=== PATIENT | male | born 1930 | race Caucasian/White ===

== ENCOUNTER → 2016-09-14 | Outpatient (CLI) | payer MEDICARE, OTHER ==
[2016-09-14 09:20] LABS: CHLORIDE,CL 104 mmol/L (98-110); SODIUM,NA 143 mmol/L (136-146)
--- NOTE | 2016-09-14 09:41 | CR ---
EXAMINATION: Two-view chest (PA and Lateral views). HISTORY: Central hypertension. FINDINGS: The trachea is midline. The cardiomediastinal silhouette is within normal limits. No pulmonary infil trates, effusions or pneumothorax. There is accessory azygos fissure. Advanced osteoarthritic changes are noted within the shoulders bilaterally. Anterior cervical hardwa re noted. Median sternotomy wires are noted with evidence of valvular replacement. IMPRESSION: No acute cardiopulmonary process.
== END ==
LOC: MW.CHFP 08:30
PROVIDERS: ATTEND Emergency Medicine
DX: Z01.810 Encounter for preprocedural cardiovascular examination (principal); I10 Essential (primary) hypertension; E11.9 Type 2 diabetes mellitus without complications
CPT/HCPCS: 36415; 71020; 71020-26; 80053; 82652; 83036; 85027; 93005; 99214

== ENCOUNTER → 2016-10-20 | Outpatient (CLI) | payer MEDICARE, OTHER | LOC: MW.CHFP 08:00 | PROVIDERS: ATTEND Emergency Medicine | DX: Z48.02 Encounter for removal of sutures (principal); Z48.89 Encounter for other specified surgical aftercare | CPT/HCPCS: G0463 ==

== ENCOUNTER → 2016-12-14 | Outpatient (CLI) | payer MEDICARE, OTHER ==
[2016-12-14 08:19] LABS: CHLORIDE,CL 104 mmol/L (98-110); SODIUM,NA 140 mmol/L (136-146)
== END ==
LOC: MW.CHFP 07:24
PROVIDERS: ATTEND Emergency Medicine
DX: E11.9 Type 2 diabetes mellitus without complications (principal); I10 Essential (primary) hypertension
CPT/HCPCS: 36415; 80048; 83036; 85027; 99214

== ENCOUNTER 2018-10-11 06:22 | Day surgery (SDC) | payer MEDICARE, OTHER ==
[~2018-10-11 06:22] MED LIST: Lactated Ringers 1,000 ML IV SCH
[2018-10-11] MEDS ORDERED: Lidocaine 1% 20 ML MDV ONE (07:22)
[2018-10-11] MEDS ORDERED: Bupivacaine 0.25% 10 ML SDV ONE (07:22)
[2018-10-11] MEDS ORDERED: Lidocaine 1% 0 ML ONE (07:29)
[2018-10-11] MEDS ORDERED: Propofol 200 MG/20 ML SDV ONE (07:29)
--- NOTE | 2018-10-11 07:30 | PCM.PREANE ---
Preanesthetic Assessment - Anesthesia/Transfusion/Family Hx Anesthesia History: Prior Anesthesia Without Reaction Family History of Anesthesia Reaction: No Transfusion History: No Prior Transfusion(s) - Physical Assessment NPO Status Date: 10/10/18 NPO Status Time: 18:00 O2 Sat by Pulse Oximetry: 95 Respiratory Rate: 15 Vital Signs: Last Vital Signs Temp 96.8 F 10/11/18 06:55 Pulse 66 10/11/18 06:55 Resp 15 10/11/18 06:55 BP 139/63 10/11/18 06:55 Pulse Ox 95 10/11/18 06:55 Height: 5 ft 8 in Weight: 85.729 kg ASA Class: 3 Mental Status: Alert & Oriented x3 Dentition: Reports: Dentures ROM/Head Extension: Full Lungs: Clear to Auscultation, Normal Respiratory Effort Cardiovascular: Regular Rate, Regular Rhythm - Allergies Allergies/Adverse Reactions: Allergies Allergy/AdvReac Type Severity Reaction Status Date / Time No Known Allergies Allergy Verified 10/09/18 11:00 - Blood Blood Available: No - Anesthesia Plan Pre-Op Medication Ordered: None - Acknowledgements Anesthesia Type Planned: MAC Pt an Appropriate Candidate for the Planned Anesthesia: Yes Alternatives and Risks of Anesthesia Discussed w Pt/Guardian: Yes Pt/Guardian Understands and Agrees with Anesthesia Plan: Yes Additional Comments: PMH: COMANCHE-wears hearing aids, poor vision-macular degeneration, glaucoma, 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), NPH-with hx or retention, 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, HTN, HLD, s/p multilevel cervical instrumentation for cervical spondylosis, has untreated lumbar spinal stenosis PLAN: MAC PreAnesthesia Questionnaire HEENT History: Reports: Cataract, Impaired Vision, Macular Degeneration, Other ( See Below) Other HEENT History: wears glasses, top and bottom dentures, darci hearing aids Cardiovascular History: Reports: Heart Valve Replacement, High Cholesterol, Hypertension Respiratory History: Reports: None Gastrointestinal History: Reports: GERD Genitourinary History: Reports: BPH Other Genitourinary History: CKD, bladder cancer Musculoskeletal History: Reports: Neck Pain, Chronic, Osteoarthritis Other Musculoskeletal History: DDD Neurological History: Reports: None Psychiatric History: Reports: None Endocrine/Metabolic History: Reports: Diabetes, Type II Hematologic History: Reports: None Immunologic History: Reports: None Oncologic (Cancer) History: Reports: Bladder, Other (See Below) Other Oncologic History: hx skin cancer Dermatologic History: Reports: None - Past Surgical History Head Surgeries/Procedures: Reports: None HEENT Surgical History: Reports: Cataract Surgery, Tonsillectomy Cardiovascular Surgical History: Reports: Valve Replacement Respiratory Surgical History: Reports: None Male Surgical History: Reports: TURBT-Transurethral Resection of Bladder Tumor Neurological Surgical History: Reports: C-Spine Other Neurological Surgeries/Procedures: hx neck surgery Musculoskeletal Surgical History: Reports: Knee Replacement, Other (See Below) Other Musculoskeletal Surgeries/Procedures:: elbow surgery,, darci knee replacements Dermatological Surgical History: Reports: Skin Biopsy - SUBSTANCE USE Smoking Status *Q: Former Smoker Tobacco Use Within Last Twelve Months: Snuff/Dip, Other (See Below) Recreational Drug Use History: No - HOME MEDS Home Medications: Home Meds Aspirin [Adult Aspirin] 81 mg PO DAILY 10/09/18 [History] Cholecalciferol (Vitamin D3) [Vitamin D3] 2,000 units PO DAILY 10/09/18 [History ] Cyanocobalamin (Vitamin B12) [Vitamin B12] 1,000 mcg PO DAILY 10/09/18 [History] Docusate Sodium [Dulcolax Stool Softener] 1 tab PO ASDIRECTED PRN 10/09/18 [ History] Finasteride [Proscar] 5 mg PO BID 10/09/18 [History] Fish Oil/DHA/EPA [Fish Oil 1,200 MG] 3 tab PO TID 10/09/18 [History] Glimepiride 4 mg PO BID 10/09/18 [History] Ibuprofen [Advil] 2 tab PO ASDIRECTED PRN 10/09/18 [History] Latanoprost/Pf [Latanoprost 0.005% Eye Drop] 1 drop EYEBOTH ASDIRECTED 10/09/18 [History] Losartan Potassium 50 mg PO BEDTIME 10/09/18 [History] Losartan Potassium 100 mg PO ACBREAKFAST 10/09/18 [History] Calros Red 500 mg PO DAILY 10/09/18 [History] Metoprolol Tartrate 50 mg PO BID 10/09/18 [History] Omeprazole Magnesium [Prilosec Otc] 20 mg PO DAILY 10/09/18 [History] Pioglitazone HCl 30 mg PO DAILY 10/09/18 [History] Polyvinyl Alcohol [Liquitears] 1 drop EYEBOTH ASDIRECTED PRN 10/09/18 [History] Rosuvastatin Calcium 20 mg PO BEDTIME 10/09/18 [History] Tamsulosin [Flomax] 0.4 mg PO DAILY 10/09/18 [History] Vit C/Jaun J Ac/Lut/Copper/ZnOx [Preservision Lutein Softgel] 20 tab PO DAILY 06/19 [History] Vitamin B Complex [Super B-50 Complex] 1 tab PO DAILY 10/09/18 [History] amLODIPine Besylate [Amlodipine Besylate] 5 mg PO DAILY 10/09/18 [History] metFORMIN HCl [Fortamet] 500 mg PO BEDTIME 10/09/18 [History] metFORMIN HCl [Metformin ER Osmotic] 1,000 mg PO ACBREAKFAST 10/09/18 [History] - CURRENT (IN HOUSE) MEDS Current Meds: Current Medications Cefazolin Sodium/Dextrose 2 gm (/ Premix) 50 mls @ 100 mls/hr IV ONCALL JADEN Lactated Ringer's (Ringers, Lactated) 1,000 mls @ 100 mls/hr IV ASDIRECTED [facility] Last Admin: 10/11/18 07:13 Dose: 100 mls/hr
[2018-10-11] MEDS ORDERED: Midazolam 1 MG/ML 2 ML SDV ONE (07:45)
[2018-10-11] MEDS ORDERED: fentaNYL 100 MCG/2 ML SDV ONE (07:45)
[2018-10-11] MEDS ORDERED: Ondansetron 4 MG/2 ML SDV ONE (07:45)
[2018-10-11] MEDS ORDERED: ceFAZolin 1 GM Vial ONE (07:53)
[2018-10-11] MEDS ORDERED: ceFAZolin 2 GM in Premix Bag 1 BAG IV SCH (08:00)
[2018-10-11] MEDS ORDERED: Acetaminophen/Codeine 300-30 MG Tab PO PRN (08:24)
--- NOTE | 2018-10-11 08:35 | PCM.OPNOTE ---
- General Post-Op/Procedure Note Date of Surgery/Procedure: 10/11/18 Operative Procedure(s): L CTR Post-Op Diagnosis: L CTS Anesthesia Technique: Local, Moderate Sedation Primary Surgeon: Ginger Noriega EBL in mLs: 5 Condition: Good Free Text/Narrative:: tt=3 min #[id number]
--- NOTE | 2018-10-11 10:10 | OR ---
SURGEON: Ginger Noriega MD DATE OF PROCEDURE: 10/11/2018 PREOPERATIVE DIAGNOSIS: Left carpal tunnel syndrome. POSTOPERATIVE DIAGNOSIS: Left carpal tunnel syndrome. PROCEDURE: Left carpal tunnel release, open. RADIOLOGY SERVICES MANAGER: Jo Ann Gold RN. ANESTHESIA: Local with sedation. ESTIMATED BLOOD LOSS: 5 mL. TOURNIQUET TIME: 3 minutes. COMPLICATIONS: None. DEEP VENOUS THROMBOSIS PROPHYLAXIS: Not indicated. IMPLANTS USED: None. BRIEF HISTORY: Dio is an 88-year-old male who has had complaint of progressive left carpal tunnel syndrome. He has previously undergone a right carpal tunnel release and has done well. He did have EMG/nerve conduction studies, which did confirm the diagnosis. Due to his lack of response to conservative treatment, I did recommend surgical intervention. Risks and goals of procedure were discussed with the patient and were documented preoperatively. He agreed to proceed. DESCRIPTION OF PROCEDURE: The patient was properly identified and brought to the operating room. The patient was transferred from the operating room cart and placed on the operating room table in the supine position. Sedation was administered. After adequate sedation was achieved, a well-padded tourniquet was applied to the left forearm. The upper extremity was then prepped in standard fashion using ChloraPrep solution. It was then sterilely draped. A time-out was performed to ensure correct site and procedure. Preoperative antibiotics were given. The surgical site had been marked preoperatively. A mixture of 1% Lidocaine and 0.25% Marcaine were injected along the area of anticipated incision. An Esmarch was used to exsanguinate the left upper extremity and the tourniquet was inflated to 200 millimeters of mercury. A fifteen blade scalpel used to make an incision over the volar aspect of the hand. The subcutaneous tissues and palmar fascia were incised down to the level of the transverse carpal ligament. Transverse carpal ligament was then incised. Care was taken to release the ligament distally to the level of fat and proximally into the forearm. At the completion, we had good decompression of the median nerve. No other abnormalities were identified. The wound was then copiously irrigated with saline solution. The tourniquet was deflated. Electrocautery was used to maintain hemostasis. The incision site was closed with 4-0 nylon. Xeroform gauze was placed over the wound and a bulky dressing was applied. The patient was awakened from the sedation and transferred back to the operating room cart. The patient was brought to the recovery room in stable condition. All needle and sponge counts were correct. KARIN / TANNER /[id number]
--- NOTE | 2018-10-11 10:12 | PCM48HPAN ---
Post Anesthesia Note - EVALUATION WITHIN 48HRS OF ANESTHETIC Vital Signs in Normal Range: Yes Patient Participated in Evaluation: Yes Respiratory Function Stable: Yes Airway Patent: Yes Cardiovascular Function Stable: Yes Hydration Status Stable: Yes Pain Control Satisfactory: Yes Nausea and Vomiting Control Satisfactory: Yes Mental Status Recovered: Yes Resp Rate: 15
== END 2018-10-11 09:55 | disposition home or self-care (01) ==
LOC: MW.SDS 06:22
PROVIDERS: ATTEND Orthopaedic Surgery
DX: G56.02 Carpal tunnel syndrome, left upper limb (principal); I65.21 Occlusion and stenosis of right carotid artery; I12.9 Hypertensive chronic kidney disease with stage 1 through stage 4 chronic kidney disease, or unspecified chronic kidney disease; E11.22 Type 2 diabetes mellitus with diabetic chronic kidney disease; N18.9 Chronic kidney disease, unspecified; E78.00 Pure hypercholesterolemia, unspecified; G56.20 Lesion of ulnar nerve, unspecified upper limb; M48.061 Spinal stenosis, lumbar region without neurogenic claudication; M47.812 Spondylosis without myelopathy or radiculopathy, cervical region; N40.0 Benign prostatic hyperplasia without lower urinary tract symptoms; Z79.1 Long term (current) use of non-steroidal anti-inflammatories (NSAID); Z79.82 Long term (current) use of aspirin; Z79.84 Long term (current) use of oral hypoglycemic drugs; Z79.899 Other long term (current) drug therapy; Z98.890 Other specified postprocedural states
CPT/HCPCS: 64721; 82962; J0131; J0690; J2001; J2250; J3010; J3490; J7120; 01810; J2405; J2704

== ENCOUNTER 2018-10-15 20:40 | Observation (INO) | payer MEDICARE, OTHER ==
[2018-10-15] MEDS ORDERED: ceFAZolin 1 GM in Premix Bag 1 BAG IV ONE (20:59)
--- NOTE | 2018-10-15 21:14 | EDM.PDOC ---
ED HPI GENERAL MEDICAL PROBLEM - General Chief Complaint: Diabetic Complaint Stated Complaint: AMBULANCE Time Seen by Provider: 10/15/18 20:57 - History of Present Illness INITIAL COMMENTS - FREE TEXT/NARRATIVE: HISTORY AND PHYSICAL: History of present illness: Patient is an 88-year-old white male who presents after hypoglycemic episode in which there was a fall with associated laceration in his left upper extremity. He is had reported blood sugar of 30 per paramedics and was combative he rushed paramedics and was secured after the fall his wound was wrapped c-collar was applied. IV was ultimately established patient was given D50 on arrival he was a blood sugar approximately 1:30 he is awake cooperative has no other complaints at this time. Review of systems: As per history of present illness and below otherwise all systems reviewed and negative. Past medical history: As per history of present illness and as reviewed below otherwise noncontributory. Surgical history: As per history of present illness and as reviewed below otherwise noncontributory. Social history: No reported history of drug or alcohol abuse. Family history: As per history of present illness and as reviewed below otherwise noncontributory. Physical exam: HEENT: Atraumatic, normocephalic, pupils reactive, negative for conjunctival pallor or scleral icterus, mucous membranes moist, throat clear, c-collar in place, nontender, trachea midline. Lungs: Clear to auscultation, breath sounds equal bilaterally, chest nontender. Heart: S1S2, regular, negative for clicks, rubs, or JVD. Abdomen: Soft, nondistended, nontender. Negative for masses or hepatosplenomegaly. Negative for costovertebral tenderness. Pelvis: Stable nontender. Genitourinary: Deferred. Rectal: Deferred. Extremities: Left upper extremity has a gaping large laceration approximately 15 cm good hemostasis . Neuro: Awake, alert, oriented. Follows commands moves all extremities limited grossly nonfocal exam Diagnostics: CBC CMP troponin PT/INR chest x-ray EKG CT brain CT C-spine Therapeutics: IV O2 monitor Impression: #1 hypoglycemic episode with associated fall #2 left upper extremity injury with laceration #3 history of non-insulin dependent diabetes Definitive disposition and diagnosis as appropriate pending reevaluation and review of above. - Related Data Allergies Allergy/AdvReac Type Severity Reaction Status Date / Time No Known Allergies Allergy Verified 10/09/18 11:00 Home Meds: Home Meds Aspirin [Adult Aspirin] 81 mg PO DAILY 10/09/18 [History] Cholecalciferol (Vitamin D3) [Vitamin D3] 2,000 units PO DAILY 10/09/18 [History ] Cyanocobalamin (Vitamin B12) [Vitamin B12] 1,000 mcg PO DAILY 10/09/18 [History] Docusate Sodium [Dulcolax Stool Softener] 1 tab PO ASDIRECTED PRN 10/09/18 [ History] Finasteride [Proscar] 5 mg PO BID 10/09/18 [History] Fish Oil/DHA/EPA [Fish Oil 1,200 MG] 3 tab PO TID 10/09/18 [History] Glimepiride 4 mg PO BID 10/09/18 [History] Ibuprofen [Advil] 2 tab PO ASDIRECTED PRN 10/09/18 [History] Latanoprost/Pf [Latanoprost 0.005% Eye Drop] 1 drop EYEBOTH ASDIRECTED 10/09/18 [History] Losartan Potassium 50 mg PO BEDTIME 10/09/18 [History] Losartan Potassium 100 mg PO ACBREAKFAST 10/09/18 [History] Carlos Red 500 mg PO DAILY 10/09/18 [History] Metoprolol Tartrate 50 mg PO BID 10/09/18 [History] Omeprazole Magnesium [Prilosec Otc] 20 mg PO DAILY 10/09/18 [History] Pioglitazone HCl 30 mg PO DAILY 10/09/18 [History] Polyvinyl Alcohol [Liquitears] 1 drop EYEBOTH ASDIRECTED PRN 10/09/18 [History] Rosuvastatin Calcium 20 mg PO BEDTIME 10/09/18 [History] Tamsulosin [Flomax] 0.4 mg PO DAILY 10/09/18 [History] Vit C/Juan J Ac/Lut/Copper/ZnOx [Preservision Lutein Softgel] 20 tab PO DAILY 06/19 [History] Vitamin B Complex [Super B-50 Complex] 1 tab PO DAILY 10/09/18 [History] amLODIPine Besylate [Amlodipine Besylate] 5 mg PO DAILY 10/09/18 [History] metFORMIN HCl [Fortamet] 500 mg PO BEDTIME 10/09/18 [History] metFORMIN HCl [Metformin ER Osmotic] 1,000 mg PO ACBREAKFAST 10/09/18 [History] Acetaminophen/Codeine [Tylenol with Codeine No.3 300MG/30MG] 1 - 2 tab PO Q6H PRN #20 tablet 10/11/18 [Rx] Past Medical History HEENT History: Reports: Cataract, Impaired Vision, Macular Degeneration, Other ( See Below) Other HEENT History: wears glasses, top and bottom dentures, darci hearing aids Cardiovascular History: Reports: Heart Valve Replacement, High Cholesterol, Hypertension Respiratory History: Reports: None Gastrointestinal History: Reports: GERD Genitourinary History: Reports: BPH Other Genitourinary History: CKD, bladder cancer Musculoskeletal History: Reports: Neck Pain, Chronic, Osteoarthritis Other Musculoskeletal History: DDD Neurological History: Reports: None Psychiatric History: Reports: None Endocrine/Metabolic History: Reports: Diabetes, Type II Hematologic History: Reports: None Immunologic History: Reports: None Oncologic (Cancer) History: Reports: Bladder, Other (See Below) Other Oncologic History: hx skin cancer Dermatologic History: Reports: None - Past Surgical History Head Surgeries/Procedures: Reports: None HEENT Surgical History: Reports: Cataract Surgery, Tonsillectomy Cardiovascular Surgical History: Reports: Valve Replacement Respiratory Surgical History: Reports: None Male Surgical History: Reports: TURBT-Transurethral Resection of Bladder Tumor Neurological Surgical History: Reports: C-Spine Other Neurological Surgeries/Procedures: hx neck surgery Musculoskeletal Surgical History: Reports: Knee Replacement, Other (See Below) Other Musculoskeletal Surgeries/Procedures:: elbow surgery,, darci knee replacements Dermatological Surgical History: Reports: Skin Biopsy ED ROS GENERAL - Review of Systems Review Of Systems: ROS reveals no pertinent complaints other than HPI. ED EXAM GENERAL NO PERIP PULSE - Physical Exam Exam: See Below (see dictation) Course - Orders/Labs/Meds Orders: Active Orders 24 hr Category Date Time Status EKG Documentation Completion [RC] STAT Care 10/15/18 20:57 Active Cervical Spine wo Cont [CT] Stat Exams 10/15/18 21:00 Ordered Chest 1V Frontal [CR] Stat Exams 10/15/18 20:58 Ordered Elbow 2V Lt [CR] Stat Exams 10/15/18 20:58 Ordered Head wo Cont [CT] Stat Exams 10/15/18 20:59 Ordered CBC WITH AUTO DIFF [HEME] Stat Lab 10/15/18 20:57 Ordered COMPREHENSIVE METABOLIC PN,CMP [CHEM] Stat Lab 10/15/18 20:57 Ordered INR,PT,PROTHROMBIN TIME [COAG] Stat Lab 10/15/18 20:57 Ordered TROPONIN I [CHEM] Stat Lab 10/15/18 20:57 Ordered UA RFX EMILIANA AND CULT IF INDIC [URIN] Stat Lab 10/15/18 20:58 Ordered ceFAZolin [Ancef] 1 gm Med 10/15/18 20:59 Active Premix Bag 1 bag IV ONETIME Medication Orders Cefazolin Sodium/Dextrose 1 gm (/ Premix) 50 mls @ 100 mls/hr IV ONETIME ONE Stop: 10/15/18 21:28 Labs: Laboratory Tests 10/15/18 Range/Units 20:53 POC Glucose 149 H (60-110) mg/dL Meds: Medications Generic Name Dose Route Start Last Admin Trade Name Freq PRN Reason Stop Dose Admin Cefazolin Sodium/Dextrose 1 gm 50 mls @ 100 mls/hr 10/15/18 20:59 / Premix IV 10/15/18 21:28 ONETIME ONE Departure - Departure Time of Disposition: 21:13 Disposition: Refer to Observation Condition: Good Clinical Impression: Hypoglycemia, Fall, Upper extremity injury, History of diabetes mellitus, type II - Discharge Information Referrals: PCP,None [Primary Care Provider] - - My Orders Last 24 Hours: My Active Orders 10/15/18 20:57 EKG Documentation Completion [RC] STAT CBC WITH AUTO DIFF [HEME] Stat COMPREHENSIVE METABOLIC PN,CMP [CHEM] Stat INR,PT,PROTHROMBIN TIME [COAG] Stat TROPONIN I [CHEM] Stat 10/15/18 20:58 Chest 1V Frontal [CR] Stat Elbow 2V Lt [CR] Stat UA RFX EMILIANA AND CULT IF INDIC [URIN] Stat 10/15/18 20:59 Head wo Cont [CT] Stat ceFAZolin [Ancef] 1 gm Premix Bag 1 bag IV ONETIME 10/15/18 21:00 Cervical Spine wo Cont [CT] Stat - Assessment/Plan Last 24 Hours: My Active Orders 10/15/18 20:57 EKG Documentation Completion [RC] STAT CBC WITH AUTO DIFF [HEME] Stat COMPREHENSIVE METABOLIC PN,CMP [CHEM] Stat INR,PT,PROTHROMBIN TIME [COAG] Stat TROPONIN I [CHEM] Stat 10/15/18 20:58 Chest 1V Frontal [CR] Stat Elbow 2V Lt [CR] Stat UA RFX EMILIANA AND CULT IF INDIC [URIN] Stat 10/15/18 20:59 Head wo Cont [CT] Stat ceFAZolin [Ancef] 1 gm Premix Bag 1 bag IV ONETIME 10/15/18 21:00 Cervical Spine wo Cont [CT] Stat
[2018-10-15] MEDS ORDERED: Lidocaine 1% with EPINEPHrine 1:100,000 20 ML MDV ONE (21:31)
[2018-10-15] MEDS ORDERED: Lidocaine 1% with EPINEPHrine 1:100,000 20 ML MDV INJECT ONE (21:33)
--- NOTE | 2018-10-15 21:38 | PCM.HP ---
H&P History of Present Illness - General Date of Service: 10/15/18 - History of Present Illness Initial Comments - Free Text/Narative: 88 yo male with pmh of HTN, DM and valvular heat disease who presents to the ED following a fall with laceration to left arm. Patient was noted to be confused at home EMS was called. Patient was noted to have a blood glucose of 30. He was given and amp of D50. Patient reports that he only takes oral hypoglycemics. He believes he did not eat enough today. Dr. Figueredo was consulted regarding the laceration. Left Middle Frontal Elbow Pain Score (Numeric/FACES): 0 - Related Data Allergies/Adverse Reactions: Allergies Allergy/AdvReac Type Severity Reaction Status Date / Time No Known Allergies Allergy Verified 10/15/18 22:08 Home Medications: Home Meds Aspirin [Adult Aspirin] 81 mg PO DAILY 10/09/18 [History] Cholecalciferol (Vitamin D3) [Vitamin D3] 2,000 units PO DAILY 10/09/18 [History ] Cyanocobalamin (Vitamin B12) [Vitamin B12] 1,000 mcg PO DAILY 10/09/18 [History] Docusate Sodium [Dulcolax Stool Softener] 1 tab PO ASDIRECTED PRN 10/09/18 [ History] Finasteride [Proscar] 5 mg PO DAILY 10/09/18 [History] Fish Oil/DHA/EPA [Fish Oil 1,200 MG] 0 tab PO BID 10/09/18 [History] Ibuprofen [Advil] 2 tab PO ASDIRECTED PRN 10/09/18 [History] Latanoprost/Pf [Latanoprost 0.005% Eye Drop] 1 drop EYEBOTH QPM 10/09/18 [ History] Losartan Potassium 50 mg PO BEDTIME 10/09/18 [History] Losartan Potassium 100 mg PO ACBREAKFAST 10/09/18 [History] Metoprolol Tartrate 50 mg PO BID 10/09/18 [History] Omeprazole Magnesium [Prilosec Otc] 20 mg PO ASDIRECTED PRN 10/09/18 [History] Pioglitazone HCl 30 mg PO DAILY 10/09/18 [History] Rosuvastatin Calcium 20 mg PO BEDTIME 10/09/18 [History] Tamsulosin [Flomax] 0.4 mg PO DAILY 10/09/18 [History] Vit C/Juan J Ac/Lut/Copper/ZnOx [Preservision Lutein Softgel] 1 cap PO BID [History] Vitamin B Complex [Super B-50 Complex] 1 tab PO DAILY 10/09/18 [History] amLODIPine Besylate [Amlodipine Besylate] 5 mg PO DAILY 10/09/18 [History] metFORMIN HCl [Fortamet] 500 mg PO BEDTIME 10/09/18 [History] metFORMIN HCl [Metformin ER Osmotic] 1,000 mg PO ACBREAKFAST 10/09/18 [History] Acetaminophen/Codeine [Tylenol with Codeine No.3 300MG/30MG] 1 - 2 tab PO Q6H PRN #20 tablet 10/11/18 [Rx] Glimepiride 2 mg PO BID #0 10/16/18 [Rx] Past Medical History HEENT History: Reports: Cataract, Impaired Vision, Macular Degeneration, Other ( See Below) Other HEENT History: wears glasses, top and bottom dentures, darci hearing aids Cardiovascular History: Reports: Heart Valve Replacement, High Cholesterol, Hypertension Respiratory History: Reports: None Gastrointestinal History: Reports: GERD Genitourinary History: Reports: BPH Other Genitourinary History: CKD, bladder cancer Musculoskeletal History: Reports: Neck Pain, Chronic, Osteoarthritis Other Musculoskeletal History: DDD Neurological History: Reports: None Psychiatric History: Reports: None Endocrine/Metabolic History: Reports: Diabetes, Type II Hematologic History: Reports: None Immunologic History: Reports: None Oncologic (Cancer) History: Reports: Bladder, Other (See Below) Other Oncologic History: hx skin cancer Dermatologic History: Reports: None - Past Surgical History Head Surgeries/Procedures: Reports: None HEENT Surgical History: Reports: Cataract Surgery, Tonsillectomy Cardiovascular Surgical History: Reports: Valve Replacement Respiratory Surgical History: Reports: None Male Surgical History: Reports: TURBT-Transurethral Resection of Bladder Tumor Neurological Surgical History: Reports: C-Spine Other Neurological Surgeries/Procedures: hx neck surgery Musculoskeletal Surgical History: Reports: Knee Replacement, Other (See Below) Other Musculoskeletal Surgeries/Procedures:: elbow surgery,, darci knee replacements Dermatological Surgical History: Reports: Skin Biopsy H&P Review of Systems - Review of Systems: Review Of Systems: ROS reveals no pertinent complaints other than HPI. Exam - Exam Exam: See Below - Vital Signs Vital Signs: Last Vital Signs Temp 36.1 C 10/15/18 20:40 Pulse 79 10/15/18 20:40 Resp 18 10/15/18 20:40 BP 142/89 H 10/15/18 20:40 Pulse Ox 95 10/15/18 20:40 Weight: 85 kg - Exam General: Alert, Oriented HEENT: Mucosa Moist & Athalia Neck: Supple Lungs: Clear to Auscultation, Normal Respiratory Effort Cardiovascular: Regular Rate, Regular Rhythm GI/Abdominal Exam: Normal Bowel Sounds, Soft, Non-Tender Extremities: No Pedal Edema Skin: Other (large laceration of left forarm) - Patient Data Lab Results Last 24 hrs: Laboratory Results - last 24 hr 10/15/18 10/15/18 Range/Units 20:53 21:18 WBC 11.61 H (4.0-11.0) K/uL RBC 3.70 L (4.50-5.90) M/uL Hgb 11.4 L (13.0-17.0) g/dL Hct 35.1 L (38.0-50.0) % MCV 94.9 (80.0-98.0) fL MCH 30.8 (27.0-32.0) pg MCHC 32.5 (31.0-37.0) g/dL RDW Std Deviation 50.0 (28.0-62.0) fl RDW Coeff of Marshall 15 (11.0-15.0) % Plt Count 205 (150-400) K/uL MPV 9.60 (7.40-12.00) fL Neut % (Auto) 84.4 H (48.0-80.0) % Lymph % (Auto) 5.2 L (16.0-40.0) % [place] % (Auto) 9.0 (0.0-15.0) % Eos % (Auto) 1.3 (0.0-7.0) % Baso % (Auto) 0.1 (0.0-1.5) % Neut # (Auto) 9.8 H (1.4-5.7) K/uL Lymph # (Auto) 0.6 (0.6-2.4) K/uL [place] # (Auto) 1.0 H (0.0-0.8) K/uL Eos # (Auto) 0.2 (0.0-0.7) K/uL Baso # (Auto) 0.0 (0.0-0.1) K/uL Nucleated RBC % 0.0 /100WBC Nucleated RBCs # 0 K/uL POC Glucose 149 H (60-110) mg/dL Result Diagrams: 10/16/18 06:04 10/16/18 06:04 Problem List Initiated/Reviewed/Updated: Yes Orders Last 24hrs: Active Orders 24 hr Category Date Time Status Antiembolic Devices [RC] PER UNIT ROUTINE Care 10/15/18 21:31 Ordered Blood Glucose Check, Bedside [RC] Q3HR Care 10/15/18 21:29 Ordered EKG Documentation Completion [RC] STAT Care 10/15/18 20:57 Active Oxygen Therapy [RC] PRN Care 10/15/18 21:29 Ordered Up ad Rosemary [RC] ASDIRECTED Care 10/15/18 21:29 Ordered VTE/DVT Education [RC] PER UNIT ROUTINE Care 10/15/18 21:29 Ordered Vital Signs [RC] Q4H Care 10/15/18 21:29 Ordered Consult to Diabetic Nurse Specialist [CONS] Routine Cons 10/15/18 21:29 Ordered [employer] Diet [DIET] Diet 10/15/18 Breakfast Ordered Cervical Spine wo Cont [CT] Stat Exams 10/15/18 21:00 Ordered Chest 1V Frontal [CR] Stat Exams 10/15/18 20:58 Ordered Elbow 2V Lt [CR] Stat Exams 10/15/18 20:58 Ordered Head wo Cont [CT] Stat Exams 10/15/18 20:59 Ordered BASIC METABOLIC PANEL,BMP [CHEM] AM Lab 10/16/18 05:11 Ordered CBC W/O DIFF,HEMOGRAM [HEME] AM Lab 10/16/18 05:11 Ordered COMPREHENSIVE METABOLIC PN,CMP [CHEM] Stat Lab 10/15/18 21:18 Received INR,PT,PROTHROMBIN TIME [COAG] Stat Lab 10/15/18 21:18 Received TROPONIN I [CHEM] Stat Lab 10/15/18 21:18 Received UA RFX EMILIANA AND CULT IF INDIC [URIN] Stat Lab 10/15/18 20:58 Ordered Metoprolol Tartrate [Lopressor] Med 10/16/18 09:00 Ordered 50 mg PO BID Rosuvastatin Calcium [Rosuvastatin Calcium] Med 10/16/18 21:00 Ordered 20 mg PO BEDTIME amLODIPine [Norvasc] Med 10/16/18 09:00 Ordered 5 mg PO DAILY Sequential Compression Device [OM.PC] Per Unit Routine Oth 10/15/18 21:30 Ordered Resuscitation Status Routine Resus Stat 10/15/18 21:29 Ordered Assessment/Plan Comment:: 88 yo male admitted following a fall with arm laceration due to hypoglycemia. Laceration: Dr. Figueredo has been consulted and is tending to wound in the ED Hypoglycemia: last glucose was 149, will monitor with frequent accuchecks and hold hypoglycemics
[2018-10-15 21:42] LABS: CHLORIDE,CL 106 mmol/L (98-107); SODIUM,NA 144 mmol/L (136-148)
[2018-10-15] MEDS ORDERED: Bacitracin Oint 1 GM U/D Packet TOP ONE (21:47)
--- NOTE | 2018-10-15 22:14 | CR ---
Pain shortness of breath. Portable chest. COMPARISON: Chest x-ray 09/14/2016. Findings: Stable cardiac mediastinal silhouette. Median sternotomy. Cervical fusion change. Low lung volumes. Lungs are clear of an acute airspace or interstitial process. No pneumothorax. No effusion. IMPRESSION: 1. No acute pulmonary process. Dictated by Sana Valencia MD @ Oct 15 2018 10:10PM Signed by Dr. Sana Valencia @ Oct 15 2018 10:11PM
--- NOTE | 2018-10-15 22:20 | CR ---
INDICATION: Status post trauma with pain. COMPARISON: None available. FINDINGS: The left elbow is examined with AP and lateral views. There is gas in the soft tissues of the posterior distal arm consistent with a laceration. There is no sign of any radiopaque foreign body. There is a mild cortical step-off of the radial aspect of the radial head consistent with an acute, nondisplaced radial head fracture. No definite joint effusion is evident. There is no sign of additional fracture or dislocation. There is mild primary osteoarthritis of the articulation of the trochlea and olecranon, with mild narrowing of the joint space and mild sclerosis of the articular surface. There is a mild posterior olecranon spur. IMPRESSION: Acute, nondisplaced fracture of the radial aspect of the radial head. No definite joint effusion seen. Laceration of the soft tissues of the posterior distal arm with no sign of radiopaque foreign body. 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 Dictated by Thomas Gage MD @ Oct 15 2018 10:14PM Signed by Dr. Thomas Gage @ Oct 15 2018 10:18PM
--- NOTE | 2018-10-15 22:26 | CT ---
INDICATION: Pain following a fall. COMPARISON: None available. TECHNIQUE: CT examination of the head was performed with 3 millimeter thick axial sections without intravenous contrast. Images were obtained from the vertex of the skull through the skull base, and I examined the images with the brain and bone windows. Please note that all CT scans at this facility use dose modulation, iterative reconstruction, and/or weight-based dosing when appropriate to reduce radiation dose to as low as reasonably achievable. FINDINGS: : The brain is normal in appearance for the patient`s age on today`s study, with no sign of mass lesion, mass effect, hemorrhage, or edema. There is mild dilatation of the ventricles and sulci representing mild, age-appropriate atrophy. 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 A punctate dystrophic calcification is seen in a sulci overlying this region. The visualized portions of the orbits are normal in appearance. The visualized portions of the paranasal sinuses and mastoids are clear. The right mastoid is hypoplastic. The osseous structures are normal in their appearance with no sign of abnormality in the skull base or calvarium. IMPRESSION: No sign of acute injury to the brain. No sign of closed head injury. Mild, age-appropriate atrophy and small-vessel ischemic change. Please note that all CT scans at this facility use dose modulation, iterative reconstruction, and/or weight-based dosing when appropriate to reduce radiation dose to as low as reasonably achievable. Dictated by Thomas Gage MD @ Oct 15 2018 10:18PM Signed by Dr. Thomas Gage @ Oct 15 2018 10:25PM
--- NOTE | 2018-10-15 22:35 | CT ---
INDICATION: Pain after fall COMPARISON: COMPARISON DATE TECHNIQUE: CT examination of the cervical spine is performed without contrast using spiral technique. 2 mm thick axial, sagittal and coronal reconstructions were made. Please note that all CT scans at this facility use dose modulation, iterative reconstruction, and/or weight-based dosing when appropriate to reduce radiation dose to as low as reasonably achievable. FINDINGS: : There are changes of anterior cervical fusion from C3 through C5. The anterior metallic plate and anchoring screws are intact and in good apposition with the vertebral bodies. The interbody grafts are in anatomic alignment. The C3 through C5 vertebral bodies are in anatomic alignment. There is grade 1 anterior subluxation of C5 on C6. The disc spaces are absent, indicating solid osseous fusion. There is mild posterior osteophytic ridging at C4-5. There is no sign of prevertebral soft tissue swelling. There is grade 1 anterior subluxation of C6 on C7. There is associated with mild diffuse disc bulging and posterior osteophytic ridging as well as moderate right and mild left facet arthropathy. The subluxation is the almost certainly degenerative. Moderate anterior osteophytes are also present at this level. Moderate bilateral foraminal stenosis from uncovertebral joint hypertrophy. Moderate left C1-2 arthropathy with prominent lateral osteophytic ridging. The C2-3 disc space is normal in height. There is minimal diffuse disc bulging. There is moderate bilateral facet arthropathy. There is heavy anterior ligamentous ossification at C7-T1 with anatomic alignment of the vertebral bodies. The airway structures are normal in appearance. The visualized skull base is normal in appearance. Brain detail is extremely limited by the use of bone technique, but no gross abnormality is seen. The apices of the lungs are clear. IMPRESSION: No sign of acute osseous injury to the cervical spine. Satisfactory appearance status post anterior cervical fusion from C3 through C6. Grade 1 anterior subluxation of C6 on C7, probably degenerative. Degenerative changes throughout the cervical spine as described above. Please note that all CT scans at this facility use dose modulation, iterative reconstruction, and/or weight-based dosing when appropriate to reduce radiation dose to as low as reasonably achievable. Dictated by Thomas Gage MD @ Oct 15 2018 10:25PM Signed by Dr. Thomas Gage @ Oct 15 2018 10:32PM
--- NOTE | 2018-10-15 23:17 | PCM.CONS ---
H&P History of Present Illness - General Date of Service: 10/15/18 Source of Information: Patient History Limitations: Reports: No Limitations - History of Present Illness Initial Comments - Free Text/Narative: Patient is an 88 year old male who presents after a fall secondary to hypoglycemia and associated altered mental status. He fell and hit his left elbow sustaining a large complex skin laceration and skin tear over the dorsal aspect of his left elbow extending onto the dorsal forearm. He is being admitted to the medicine service for monitoring overnight. I was asked to come repair his laceration and evaluate the extremity. He denies any paresthesias or loss of motor sensation to the left arm or hand. - Related Data Allergies/Adverse Reactions: Allergies Allergy/AdvReac Type Severity Reaction Status Date / Time No Known Allergies Allergy Verified 10/15/18 22:08 Home Medications: Home Meds Aspirin [Adult Aspirin] 81 mg PO DAILY 10/09/18 [History] Cholecalciferol (Vitamin D3) [Vitamin D3] 2,000 units PO DAILY 10/09/18 [History ] Cyanocobalamin (Vitamin B12) [Vitamin B12] 1,000 mcg PO DAILY 10/09/18 [History] Docusate Sodium [Dulcolax Stool Softener] 1 tab PO ASDIRECTED PRN 10/09/18 [ History] Finasteride [Proscar] 5 mg PO BID 10/09/18 [History] Fish Oil/DHA/EPA [Fish Oil 1,200 MG] 3 tab PO TID 10/09/18 [History] Glimepiride 4 mg PO BID 10/09/18 [History] Ibuprofen [Advil] 2 tab PO ASDIRECTED PRN 10/09/18 [History] Latanoprost/Pf [Latanoprost 0.005% Eye Drop] 1 drop EYEBOTH ASDIRECTED 10/09/18 [History] Losartan Potassium 50 mg PO BEDTIME 10/09/18 [History] Losartan Potassium 100 mg PO ACBREAKFAST 10/09/18 [History] Carlos Red 500 mg PO DAILY 10/09/18 [History] Metoprolol Tartrate 50 mg PO BID 10/09/18 [History] Omeprazole Magnesium [Prilosec Otc] 20 mg PO DAILY 10/09/18 [History] Pioglitazone HCl 30 mg PO DAILY 10/09/18 [History] Polyvinyl Alcohol [Liquitears] 1 drop EYEBOTH ASDIRECTED PRN 10/09/18 [History] Rosuvastatin Calcium 20 mg PO BEDTIME 10/09/18 [History] Tamsulosin [Flomax] 0.4 mg PO DAILY 10/09/18 [History] Vit C/Juan J Ac/Lut/Copper/ZnOx [Preservision Lutein Softgel] 20 tab PO DAILY 06/19 [History] Vitamin B Complex [Super B-50 Complex] 1 tab PO DAILY 10/09/18 [History] amLODIPine Besylate [Amlodipine Besylate] 5 mg PO DAILY 10/09/18 [History] metFORMIN HCl [Fortamet] 500 mg PO BEDTIME 10/09/18 [History] metFORMIN HCl [Metformin ER Osmotic] 1,000 mg PO ACBREAKFAST 10/09/18 [History] Acetaminophen/Codeine [Tylenol with Codeine No.3 300MG/30MG] 1 - 2 tab PO Q6H PRN #20 tablet 10/11/18 [Rx] Past Medical History HEENT History: Reports: Cataract, Impaired Vision, Macular Degeneration, Other ( See Below) Other HEENT History: wears glasses, top and bottom dentures, darci hearing aids Cardiovascular History: Reports: Heart Valve Replacement, High Cholesterol, Hypertension Respiratory History: Reports: None Gastrointestinal History: Reports: GERD Genitourinary History: Reports: BPH Other Genitourinary History: CKD, bladder cancer Musculoskeletal History: Reports: Neck Pain, Chronic, Osteoarthritis Other Musculoskeletal History: DDD Neurological History: Reports: None Psychiatric History: Reports: None Endocrine/Metabolic History: Reports: Diabetes, Type II Hematologic History: Reports: None Immunologic History: Reports: None Oncologic (Cancer) History: Reports: Bladder, Other (See Below) Other Oncologic History: hx skin cancer Dermatologic History: Reports: None - Past Surgical History Head Surgeries/Procedures: Reports: None HEENT Surgical History: Reports: Cataract Surgery, Tonsillectomy Cardiovascular Surgical History: Reports: Valve Replacement Respiratory Surgical History: Reports: None Male Surgical History: Reports: TURBT-Transurethral Resection of Bladder Tumor Neurological Surgical History: Reports: C-Spine Other Neurological Surgeries/Procedures: hx neck surgery Musculoskeletal Surgical History: Reports: Knee Replacement, Other (See Below) Other Musculoskeletal Surgeries/Procedures:: elbow surgery,, darci knee replacements Dermatological Surgical History: Reports: Skin Biopsy Social & Family History - Family History Family Medical History: Noncontributory - Tobacco Use Smoking Status *Q: Never Smoker - Recreational Drug Use Recreational Drug Use: No H&P Review of Systems - Review of Systems: Review Of Systems: ROS reveals no pertinent complaints other than HPI. Exam - Exam Exam: See Below - Vital Signs Vital Signs: Last Vital Signs Temp 36.1 C 10/15/18 20:40 Pulse 79 10/15/18 20:40 Resp 18 10/15/18 20:40 BP 142/89 H 10/15/18 20:40 Pulse Ox 95 10/15/18 20:40 Weight: 85 kg - Exam Quality Assessment: Supplemental Oxygen General: Alert, Oriented, Cooperative HEENT: Conjunctiva Clear, Mucosa Moist & Graf Neck: Supple, Trachea Midline Lungs: Normal Respiratory Effort Extremities: Normal Range of Motion, Normal Capillary Refill, Other (laceration of the left dorsal elbow extending onto the left forearm. No evidence of muscular disruption. Laceration appears to involve just the subcutaneous tissues. Measures ~ 15 cm in length. There is an area of evulsed skin that is still somewhat attached to the soft tissue beneath. There is a superficial open area consistent with a large skin tear on the distal aspect of the wound measuring 3 x 4 cm. well healing carpal tunnel incision on the palmar aspect of the hand/wrist. ). No: Joint Swelling - Patient Data Lab Results Last 24 hrs: Laboratory Results - last 24 hr 10/15/18 10/15/18 10/15/18 Range/Units 20:53 21:18 21:18 WBC 11.61 H (4.0-11.0) K/uL RBC 3.70 L (4.50-5.90) M/uL Hgb 11.4 L (13.0-17.0) g/dL Hct 35.1 L (38.0-50.0) % MCV 94.9 (80.0-98.0) fL MCH 30.8 (27.0-32.0) pg MCHC 32.5 (31.0-37.0) g/dL RDW Std Deviation 50.0 (28.0-62.0) fl RDW Coeff of Marshall 15 (11.0-15.0) % Plt Count 205 (150-400) K/uL MPV 9.60 (7.40-12.00) fL Neut % (Auto) 84.4 H (48.0-80.0) % Lymph % (Auto) 5.2 L (16.0-40.0) % [place] % (Auto) 9.0 (0.0-15.0) % Eos % (Auto) 1.3 (0.0-7.0) % Baso % (Auto) 0.1 (0.0-1.5) % Neut # (Auto) 9.8 H (1.4-5.7) K/uL Lymph # (Auto) 0.6 (0.6-2.4) K/uL [place] # (Auto) 1.0 H (0.0-0.8) K/uL Eos # (Auto) 0.2 (0.0-0.7) K/uL Baso # (Auto) 0.0 (0.0-0.1) K/uL Nucleated RBC % 0.0 /100WBC Nucleated RBCs # 0 K/uL INR 1.04 Sodium (136-148) mmol/L Potassium (3.5-5.1) mmol/L Chloride (98-107) mmol/L Carbon Dioxide (21.0-32.0) mmol/L BUN (7.0-18.0) mg/dL Creatinine (0.8-1.3) mg/dL Est Cr Clr Drug Dosing Estimated GFR (MDRD) ml/min Glucose (74-106) mg/dL POC Glucose 149 H (60-110) mg/dL Calcium (8.5-10.1) mg/dL Total Bilirubin (0.2-1.0) mg/dL AST (15-37) IU/L ALT (14-63) IU/L Alkaline Phosphatase (46-116) U/L Troponin I (0.000-0.056) ng/mL Total Protein (6.4-8.2) g/dL Albumin (3.4-5.0) g/dL Globulin (2.6-4.0) g/dL Albumin/Globulin Ratio (0.9-1.6) 10/15/18 Range/Units 21:18 WBC (4.0-11.0) K/uL RBC (4.50-5.90) M/uL Hgb (13.0-17.0) g/dL Hct (38.0-50.0) % MCV (80.0-98.0) fL MCH (27.0-32.0) pg MCHC (31.0-37.0) g/dL RDW Std Deviation (28.0-62.0) fl RDW Coeff of Marshall (11.0-15.0) % Plt Count (150-400) K/uL MPV (7.40-12.00) fL Neut % (Auto) (48.0-80.0) % Lymph % (Auto) (16.0-40.0) % [place] % (Auto) (0.0-15.0) % Eos % (Auto) (0.0-7.0) % Baso % (Auto) (0.0-1.5) % Neut # (Auto) (1.4-5.7) K/uL Lymph # (Auto) (0.6-2.4) K/uL [place] # (Auto) (0.0-0.8) K/uL Eos # (Auto) (0.0-0.7) K/uL Baso # (Auto) (0.0-0.1) K/uL Nucleated RBC % /100WBC Nucleated RBCs # K/uL INR Sodium 144 (136-148) mmol/L Potassium 3.9 (3.5-5.1) mmol/L Chloride 106 (98-107) mmol/L Carbon Dioxide 26.0 (21.0-32.0) mmol/L BUN 35 H (7.0-18.0) mg/dL Creatinine 1.6 H (0.8-1.3) mg/dL Est Cr Clr Drug Dosing TNP Estimated GFR (MDRD) 41.2 ml/min Glucose 50 L (74-106) mg/dL POC Glucose (60-110) mg/dL Calcium 8.9 (8.5-10.1) mg/dL Total Bilirubin 0.3 (0.2-1.0) mg/dL AST 14 L (15-37) IU/L ALT 16 (14-63) IU/L Alkaline Phosphatase 58 (46-116) U/L Troponin I < 0.050 (0.000-0.056) ng/mL Total Protein 6.7 (6.4-8.2) g/dL Albumin 3.0 L (3.4-5.0) g/dL Globulin 3.7 (2.6-4.0) g/dL Albumin/Globulin Ratio 0.8 L (0.9-1.6) Result Diagrams: 10/15/18 21:18 10/15/18 21:18 Consult PN Assessment/Plan Procedures: Procedures ALANINE AMINO (ALT) (SGPT) (12/05/15) ASSAY OF PSA TOTAL (05/22/18) CARDIAC REHAB/MONITOR (05/12/16) CARPAL TUNNEL SURGERY (10/11/18) CHEST X-RAY 2VW FRONTAL&LATL (09/14/16) COMPLETE CBC AUTOMATED (03/21/17) COMPLETE CBC W/AUTO DIFF WBC (03/08/16) COMPREHEN METABOLIC PANEL (05/01/18) CT NECK SPINE W/O DYE (03/21/14) CYSTOSCOPY (05/19/17) DESTRUCT PREMALG LESION (02/25/14) ELECTROCARDIOGRAM TRACING (09/14/16) EMERGENCY DEPT VISIT (03/21/14) EXC TR-EXT MAL+IGNACIO 3.1-4 CM (02/25/14) EXTRACRANIAL BILAT STUDY (06/04/15) GLYCOSYLATED HEMOGLOBIN TEST (08/02/18) HOT OR COLD PACKS THERAPY (01/24/17) INJ TENDON SHEATH/LIGAMENT (03/25/14) INJECT TRIGGER POINTS 3/> (12/18/15) INSERT TEMP BLADDER CATH (03/28/14) LIPID PANEL (06/02/18) MANUAL THERAPY 1/> REGIONS (07/29/16) MASSAGE THERAPY (01/24/17) METABOLIC PANEL TOTAL CA (08/02/18) MRI CHEST SPINE W/O DYE (12/26/15) MRI NECK SPINE W/O DYE (12/26/15) MUSC TEST DONE W/N TEST COMP (07/30/16) NRV CNDJ TEST 9-10 STUDIES (07/30/16) OFFICE/OUTPATIENT VISIT EST (03/21/17) OFFICE/OUTPATIENT VISIT EST (05/14/14) OFFICE/OUTPATIENT VISIT EST (03/28/14) OFFICE/OUTPATIENT VISIT EST (03/25/14) PPSV23 VACC 2 YRS+ SUBQ/IM (12/05/15) PT EVAL LOW COMPLEX 20 MIN (12/28/16) PT EVALUATION (05/31/16) ROUTINE VENIPUNCTURE (08/02/18) THER/PROPH/DIAG INJ SC/IM (03/21/14) THERAPEUTIC EXERCISES (01/24/17) TTE W/DOPPLER COMPLETE (04/25/17) ULTRASOUND THERAPY (01/24/17) UR ALBUMIN SEMIQUANTITATIVE (05/01/18) URINALYSIS AUTO W/SCOPE (05/22/18) URINALYSIS NONAUTO W/SCOPE (05/14/14) US EXAM ABDO BACK WALL PAZ (09/09/14) US URINE CAPACITY MEASURE (04/09/14) VIT D 1 25-DIHYDROXY (09/14/16) X-RAY EXAM NECK SPINE 2-3 VW (12/05/15) X-RAY EXAM OF SPINE 1 VIEW (11/02/16) (1) Skin tear SNOMED Code(s): 664463566 Code(s): LVQ0565 - Current Visit: Yes (2) Laceration SNOMED Code(s): 348382300 Code(s): AIX1737 - Current Visit: Yes (3) Left radial head fracture SNOMED Code(s): 905883527 Code(s): S52.122A - DISP FX OF HEAD OF LEFT RADIUS, INIT FOR CLOS FX Current Visit: Yes (4) Upper extremity injury SNOMED Code(s): 651085087 Code(s): S49.90XA - UNSP INJURY OF SHOULDER AND UPPER ARM, UNSP ARM, INIT ENCNTR Current Visit: Yes Problem List Initiated/Reviewed/Updated: Yes Plan: Patient was given IV ancef 2 gm in the ER. I washed out the wound with ~ 60ml of normal saline. I then repaired the laceration with non-absorbable stitches. There was an open area I was unable to close so I covered it with bacitracin, adaptic and kerlix guaze. I tagged the torn skin down with sutures as best I was able. His skin was very friable making this difficult. I covered this area with bacitracin and a light pressure dressing. He had a small skin tear over his distal left forearm that I close with steri-strips. I reviewed his imaging with our ER physician. The formal read shows an acute, non-displaced radial head fracture but this does not appear to be an open fracture. He was given antibiotics and placed in a posterior splint. Would keep him on antibiotics for the next 24 hours until seen by Orthopedics in the morning for consultation ( whether that is outpatient or inpatient is up to them). will do a dressing change in the morning to reassess the wound.
[2018-10-16] MEDS: ceFAZolin 1 GM in Premix Bag 1 BAG IV SCH ×2 (06:13→15:18)
[2018-10-16] MEDS: Metoprolol Tartrate 50 MG Tab PO SCH ×2 (08:26→21:05)
[2018-10-16] MEDS: amLODIPine 5 MG Tab PO SCH (08:26)
--- NOTE | 2018-10-16 09:04 | PCM.PN ---
- General Info Date of Service: 10/16/18 Admission Dx/Problem (Free Text): hypoglycemia Subjective Update: Doing well this morning. Reports feeling better, pain is well controlled. He denies chest pain or shortness of breath. Concerned about not getting his diabetic medications. Functional Status: Reports: Pain Controlled, Tolerating Diet, Ambulating, Urinating - Review of Systems General: Reports: No Symptoms. Denies: Weakness, Fatigue, Malaise Pulmonary: Reports: No Symptoms. Denies: Shortness of Breath Cardiovascular: Reports: No Symptoms. Denies: Chest Pain Gastrointestinal: Reports: No Symptoms. Denies: Abdominal Pain, Nausea, Vomiting Genitourinary: Reports: No Symptoms. Denies: Frequency, Burning Musculoskeletal: Reports: No Symptoms Skin: Reports: No Symptoms Neurological: Reports: No Symptoms Psychiatric: Reports: No Symptoms - Patient Data Vitals - Most Recent: Last Vital Signs Temp 98.6 F 10/16/18 07:08 Pulse 70 10/16/18 08:26 Resp 16 10/16/18 07:08 BP 157/70 H 10/16/18 08:26 Pulse Ox 94 L 10/16/18 07:08 Weight - Most Recent: 87.634 kg I&O - Last 24 Hours: Intake & Output 10/15/18 10/16/18 10/16/18 22:59 06:59 14:59 Intake Total 540 Balance 540 Lab Results Last 24 Hours: Laboratory Results - last 24 hr 10/15/18 10/15/18 10/15/18 Range/Units 20:53 21:18 21:18 WBC 11.61 H (4.0-11.0) K/uL RBC 3.70 L (4.50-5.90) M/uL Hgb 11.4 L (13.0-17.0) g/dL Hct 35.1 L (38.0-50.0) % MCV 94.9 (80.0-98.0) fL MCH 30.8 (27.0-32.0) pg MCHC 32.5 (31.0-37.0) g/dL RDW Std Deviation 50.0 (28.0-62.0) fl RDW Coeff of Marshall 15 (11.0-15.0) % Plt Count 205 (150-400) K/uL MPV 9.60 (7.40-12.00) fL Neut % (Auto) 84.4 H (48.0-80.0) % Lymph % (Auto) 5.2 L (16.0-40.0) % [place] % (Auto) 9.0 (0.0-15.0) % Eos % (Auto) 1.3 (0.0-7.0) % Baso % (Auto) 0.1 (0.0-1.5) % Neut # (Auto) 9.8 H (1.4-5.7) K/uL Lymph # (Auto) 0.6 (0.6-2.4) K/uL [place] # (Auto) 1.0 H (0.0-0.8) K/uL Eos # (Auto) 0.2 (0.0-0.7) K/uL Baso # (Auto) 0.0 (0.0-0.1) K/uL Nucleated RBC % 0.0 /100WBC Nucleated RBCs # 0 K/uL INR 1.04 Sodium (136-148) mmol/L Potassium (3.5-5.1) mmol/L Chloride (98-107) mmol/L Carbon Dioxide (21.0-32.0) mmol/L BUN (7.0-18.0) mg/dL Creatinine (0.8-1.3) mg/dL Est Cr Clr Drug Dosing Estimated GFR (MDRD) ml/min Glucose (74-106) mg/dL POC Glucose 149 H (60-110) mg/dL Calcium (8.5-10.1) mg/dL Total Bilirubin (0.2-1.0) mg/dL AST (15-37) IU/L ALT (14-63) IU/L Alkaline Phosphatase (46-116) U/L Troponin I (0.000-0.056) ng/mL Total Protein (6.4-8.2) g/dL Albumin (3.4-5.0) g/dL Globulin (2.6-4.0) g/dL Albumin/Globulin Ratio (0.9-1.6) Urine Color Urine Appearance Urine pH (5.0-8.0) Ur Specific Gallion (1.001-1.035) Urine Protein (NEGATIVE) mg/dL Urine Glucose (UA) (NEGATIVE) mg/dL Urine Ketones (NEGATIVE) mg/dL Urine Occult Blood (NEGATIVE) Urine Nitrite (NEGATIVE) Urine Bilirubin (NEGATIVE) Urine Urobilinogen (<2.0) EU/dL Ur Leukocyte Esterase (NEGATIVE) 10/15/18 10/15/18 10/16/18 Range/Units 21:18 23:20 01:38 WBC (4.0-11.0) K/uL RBC (4.50-5.90) M/uL Hgb (13.0-17.0) g/dL Hct (38.0-50.0) % MCV (80.0-98.0) fL MCH (27.0-32.0) pg MCHC (31.0-37.0) g/dL RDW Std Deviation (28.0-62.0) fl RDW Coeff of Marshall (11.0-15.0) % Plt Count (150-400) K/uL MPV (7.40-12.00) fL Neut % (Auto) (48.0-80.0) % Lymph % (Auto) (16.0-40.0) % [place] % (Auto) (0.0-15.0) % Eos % (Auto) (0.0-7.0) % Baso % (Auto) (0.0-1.5) % Neut # (Auto) (1.4-5.7) K/uL Lymph # (Auto) (0.6-2.4) K/uL [place] # (Auto) (0.0-0.8) K/uL Eos # (Auto) (0.0-0.7) K/uL Baso # (Auto) (0.0-0.1) K/uL Nucleated RBC % /100WBC Nucleated RBCs # K/uL INR Sodium 144 (136-148) mmol/L Potassium 3.9 (3.5-5.1) mmol/L Chloride 106 (98-107) mmol/L Carbon Dioxide 26.0 (21.0-32.0) mmol/L BUN 35 H (7.0-18.0) mg/dL Creatinine 1.6 H (0.8-1.3) mg/dL Est Cr Clr Drug Dosing TNP Estimated GFR (MDRD) 41.2 ml/min Glucose 50 L (74-106) mg/dL POC Glucose 56 L (60-110) mg/dL Calcium 8.9 (8.5-10.1) mg/dL Total Bilirubin 0.3 (0.2-1.0) mg/dL AST 14 L (15-37) IU/L ALT 16 (14-63) IU/L Alkaline Phosphatase 58 (46-116) U/L Troponin I < 0.050 (0.000-0.056) ng/mL Total Protein 6.7 (6.4-8.2) g/dL Albumin 3.0 L (3.4-5.0) g/dL Globulin 3.7 (2.6-4.0) g/dL Albumin/Globulin Ratio 0.8 L (0.9-1.6) Urine Color YELLOW Urine Appearance CLEAR Urine pH 5.5 (5.0-8.0) Ur Specific Gall[place] 1.020 (1.001-1.035) Urine Protein NEGATIVE (NEGATIVE) mg/dL Urine Glucose (UA) NEGATIVE (NEGATIVE) mg/dL Urine Ketones NEGATIVE (NEGATIVE) mg/dL Urine Occult Blood NEGATIVE (NEGATIVE) Urine Nitrite NEGATIVE (NEGATIVE) Urine Bilirubin NEGATIVE (NEGATIVE) Urine Urobilinogen 0.2 (<2.0) EU/dL Ur Leukocyte Esterase NEGATIVE (NEGATIVE) 10/16/18 10/16/18 10/16/18 Range/Units 01:55 02:39 06:04 WBC 9.87 (4.0-11.0) K/uL RBC 3.46 L (4.50-5.90) M/uL Hgb 10.7 L (13.0-17.0) g/dL Hct 32.5 L (38.0-50.0) % MCV 93.9 (80.0-98.0) fL MCH 30.9 (27.0-32.0) pg MCHC 32.9 (31.0-37.0) g/dL RDW Std Deviation 49.1 (28.0-62.0) fl RDW Coeff of Marshall 15 (11.0-15.0) % Plt Count 194 (150-400) K/uL MPV 10.50 (7.40-12.00) fL Neut % (Auto) (48.0-80.0) % Lymph % (Auto) (16.0-40.0) % [place] % (Auto) (0.0-15.0) % Eos % (Auto) (0.0-7.0) % Baso % (Auto) (0.0-1.5) % Neut # (Auto) (1.4-5.7) K/uL Lymph # (Auto) (0.6-2.4) K/uL [place] # (Auto) (0.0-0.8) K/uL Eos # (Auto) (0.0-0.7) K/uL Baso # (Auto) (0.0-0.1) K/uL Nucleated RBC % 0.0 /100WBC Nucleated RBCs # 0 K/uL INR Sodium (136-148) mmol/L Potassium (3.5-5.1) mmol/L Chloride (98-107) mmol/L Carbon Dioxide (21.0-32.0) mmol/L BUN (7.0-18.0) mg/dL Creatinine (0.8-1.3) mg/dL Est Cr Clr Drug Dosing Estimated GFR (MDRD) ml/min Glucose (74-106) mg/dL POC Glucose 47 L 128 H (60-110) mg/dL Calcium (8.5-10.1) mg/dL Total Bilirubin (0.2-1.0) mg/dL AST (15-37) IU/L ALT (14-63) IU/L Alkaline Phosphatase (46-116) U/L Troponin I (0.000-0.056) ng/mL Total Protein (6.4-8.2) g/dL Albumin (3.4-5.0) g/dL Globulin (2.6-4.0) g/dL Albumin/Globulin Ratio (0.9-1.6) Urine Color Urine Appearance Urine pH (5.0-8.0) Ur Specific [place] (1.001-1.035) Urine Protein (NEGATIVE) mg/dL Urine Glucose (UA) (NEGATIVE) mg/dL Urine Ketones (NEGATIVE) mg/dL Urine Occult Blood (NEGATIVE) Urine Nitrite (NEGATIVE) Urine Bilirubin (NEGATIVE) Urine Urobilinogen (<2.0) EU/dL Ur Leukocyte Esterase (NEGATIVE) 10/16/18 10/16/18 10/16/18 Range/Units 06:04 06:14 08:53 WBC (4.0-11.0) K/uL RBC (4.50-5.90) M/uL Hgb (13.0-17.0) g/dL Hct (38.0-50.0) % MCV (80.0-98.0) fL MCH (27.0-32.0) pg MCHC (31.0-37.0) g/dL RDW Std Deviation (28.0-62.0) fl RDW Coeff of Marshall (11.0-15.0) % Plt Count (150-400) K/uL MPV (7.40-12.00) fL Neut % (Auto) (48.0-80.0) % Lymph % (Auto) (16.0-40.0) % [place] % (Auto) (0.0-15.0) % Eos % (Auto) (0.0-7.0) % Baso % (Auto) (0.0-1.5) % Neut # (Auto) (1.4-5.7) K/uL Lymph # (Auto) (0.6-2.4) K/uL [place] # (Auto) (0.0-0.8) K/uL Eos # (Auto) (0.0-0.7) K/uL Baso # (Auto) (0.0-0.1) K/uL Nucleated RBC % /100WBC Nucleated RBCs # K/uL INR Sodium 144 (136-148) mmol/L Potassium 4.9 (3.5-5.1) mmol/L Chloride 108 H (98-107) mmol/L Carbon Dioxide 24.9 (21.0-32.0) mmol/L BUN 30 H (7.0-18.0) mg/dL Creatinine 1.3 (0.8-1.3) mg/dL Est Cr Clr Drug Dosing 39.46 Estimated GFR (MDRD) 52.3 ml/min Glucose 68 L (74-106) mg/dL POC Glucose 69 144 H (60-110) mg/dL Calcium 8.7 (8.5-10.1) mg/dL Total Bilirubin (0.2-1.0) mg/dL AST (15-37) IU/L ALT (14-63) IU/L Alkaline Phosphatase (46-116) U/L Troponin I (0.000-0.056) ng/mL Total Protein (6.4-8.2) g/dL Albumin (3.4-5.0) g/dL Globulin (2.6-4.0) g/dL Albumin/Globulin Ratio (0.9-1.6) Urine Color Urine Appearance Urine pH (5.0-8.0) Ur Specific [place] (1.001-1.035) Urine Protein (NEGATIVE) mg/dL Urine Glucose (UA) (NEGATIVE) mg/dL Urine Ketones (NEGATIVE) mg/dL Urine Occult Blood (NEGATIVE) Urine Nitrite (NEGATIVE) Urine Bilirubin (NEGATIVE) Urine Urobilinogen (<2.0) EU/dL Ur Leukocyte Esterase (NEGATIVE) Med Orders - Current: Current Medications Amlodipine Besylate (Norvasc) 5 mg PO DAILY [facility] Last Admin: 10/16/18 08:26 Dose: 5 mg Cefazolin Sodium/Dextrose 1 gm (/ Premix) 50 mls @ 100 mls/hr IV Q8H [facility] Last Admin: 10/16/18 06:13 Dose: 100 mls/hr Metoprolol Tartrate (Lopressor) 50 mg PO BID [facility] Last Admin: 10/16/18 08:26 Dose: 50 mg Non-Formulary Medication (Rosuvastatin Calcium [Rosuvastatin Calcium]) 20 mg PO BEDTIME [facility] Discontinued Medications Bacitracin (Bacitracin Oint 1 Gm) 10 dose TOP ONETIME ONE Stop: 10/15/18 21:48 Last Admin: 10/15/18 22:06 Dose: 10 dose Cefazolin Sodium/Dextrose 1 gm (/ Premix) 50 mls @ 100 mls/hr IV ONETIME ONE Stop: 10/15/18 21:28 Last Admin: 10/15/18 22:06 Dose: 100 mls/hr Lidocaine/Epinephrine (Xylocaine 1% With Epinephrine 1:100,000) 20 ml INJECT ONETIME ONE Stop: 10/15/18 21:34 Last Admin: 10/15/18 22:07 Dose: 20 ml Lidocaine/Epinephrine (Xylocaine 1% With Epinephrine 1:100,000) Confirm Administered Dose 20 ml .ROUTE .STK-MED ONE Stop: 10/15/18 21:32 Last Admin: 10/15/18 22:07 Dose: Not Given - Exam General: Alert, Oriented, Cooperative, No Acute Distress Lungs: Clear to Auscultation, Normal Respiratory Effort Cardiovascular: Regular Rate, Regular Rhythm GI/Abdominal Exam: Normal Bowel Sounds, Soft, Non-Tender, No Organomegaly Extremities: Normal Inspection, Normal Range of Motion, Non-Tender, No Pedal Edema, Normal Capillary Refill. No: Arm Pain (L arm in sling, VIKTORIA wrap intact) Skin: Warm, Dry Wound/Incisions: Dressing Dry and Intact, No Drainage, Other (stitches intact to L pal, from carpul tunnel surgery last Tuesday). 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 insulin use: without jail use Diabetes mellitus complication status: with hypoglycemia Qualified Code(s): E11.649 - Type 2 diabetes mellitus with hypoglycemia without coma (4) Left radial head fracture SNOMED Code(s): 785278164 Code(s): S52.122A - DISP FX OF HEAD OF LEFT RADIUS, INIT FOR CLOS FX Status : Acute Current Visit: Yes Qualifiers: Encounter type: initial encounter Fracture type: closed Fracture alignment: nondisplaced Qualified Code(s): S52.125A - Nondisplaced fracture of head of left radius, initial encounter for closed fracture (5) Skin tear SNOMED Code(s): 946064752 Code(s): SAU8949 - Status: Acute Current Visit: Yes (6) S/P carpal tunnel release SNOMED Code(s): 913770704, 26772625, 184194662 Code(s): Z98.890 - OTHER SPECIFIED POSTPROCEDURAL STATES Status: Chronic Current Visit: No (7) HTN (hypertension) SNOMED Code(s): 11584160 Code(s): I10 - ESSENTIAL (PRIMARY) HYPERTENSION Status: Chronic Current Visit: Yes Qualifiers: Hypertension type: essential hypertension Qualified Code(s): I10 - Essential (primary) hypertension (8) BPH (benign prostatic hyperplasia) SNOMED Code(s): 066521322 Code(s): N40.0 - BENIGN PROSTATIC HYPERPLASIA WITHOUT LOWER URINRY TRACT SYMP Status: Chronic Current Visit: Yes - Problem List Review Problem List Initiated/Reviewed/Updated: Yes - My Orders Last 24 Hours: My Active Orders 10/16/18 09:02 Consult to Physician [CONS] Routine 10/16/18 09:03 Notify Provider Consults [RC] ASDIRECTED 10/17/18 05:11 GLYCOSYLATED HEMOGLOBIN,HGBA1C [CHEM] Routine - Plan Plan:: 88 yo male admitted following a fall with arm laceration due to hypoglycemia. 1. Hypoglycemia: Holding all diabetic medications for now. BS this morning 68. Spoke with Dr Soriano, PCP, regarding hypoglycemia. Reports he stopped the Glimiperide and BS were not controlled. recommended 2 mg BID instead on 4 mg BID. Continue Actos and Metformin. He is having more vision concerns from macular degeneration and is not able to read his meter. Diabetic education recommended vision impaired glucose meter, will send him script for this. 2. Laceration: Dr. Figueredo has been consulted. Changed dressing today, will need daily dressing changes with PT, per Dr Figueredo. 3. Radial head fracture: Dr Noriega consulted, CT of elbow ordered. She will review that and speak with patient. 4. HTN: Stable, continue home medications VTE prophylaxis: SCDs Dispo: 1 day
[2018-10-16] MEDS ORDERED: Bacitracin Oint 28.35 GM Tube ONE (09:15)
[2018-10-16] MEDS: Bacitracin Oint 28.35 GM Tube TOP SCH (09:15)
[2018-10-16 10:32] LABS: HEMOGLOBIN A1C 6.8 % (4.5-6.2)
--- NOTE | 2018-10-16 10:35 | PCM.PRNOTE ---
- Free Text/Narrative Note: Patient was met in the ER. His laceration measured 15 cm with a large skin tear at the distal aspect. I explained the need for suture repair to the patient. I explained the procedure and the risks including bleeding or infection. He verbalized understanding. A timeout was completed verifying the patient's name age date of allergies and procedure to be performed. The wound was copiously irrigated with 60 mls of normal saline. Once this was completed I scrubbed the wound edges with Betadine. I then poured Betadine over the laceration/skin tear. The wound was then draped in sterile fashion. I anesthetized the wound with 15 mL of 1% lidocaine with epinephrine. The proximal half of the laceration went through the skin and subcutaneous fat. This was a clean, linear laceration with no skin tears or denuding of the skin. The skin edges came together with no tension. I repaired this with interrupted horizontal mattress sutures using 3-0 ethilon. The proximal half of the wound was complex. There was a piece of skin that was partially avulsed from the subcutaneous fat underlying it. I first closed the healthy tissue around this area as best I could with interrupted 3-0 Ethilon sutures. I I then used interrupted 3-0 Ethilon sutures to gently bring the edges of the torn skin close to the intact tissue. On the lateral aspect this caused some tearing of the skin. There was a 3 x 4 cm area that I was not able to close due to missing piece of skin and the friable nature of his tissue. I placed bacitracin and Adaptic over the open area of the wound. I then placed bacitracin over the top of the closed areas of the incision. I covered this with Adaptic as well. I then placed 4 x 4's over this and secured them in place with Kerlix gauze. His x-ray showed a nondisplaced radial head fracture so a posterior splint was placed and secured with Kurt wraps. The patient tolerated the procedure well with no immediate complications.
--- NOTE | 2018-10-16 10:39 | PCM.PN ---
- General Info Date of Service: 10/16/18 Functional Status: Reports: Pain Controlled, Tolerating Diet, Ambulating, Other (No new motor deficits or paresthesias in the left upper extremity) - Review of Systems General: Reports: No Symptoms Musculoskeletal: Reports: No Symptoms Skin: Reports: No Symptoms Neurological: Reports: No Symptoms - Patient Data Vitals - Most Recent: Last Vital Signs Temp 37.0 C 10/16/18 07:08 Pulse 70 10/16/18 08:26 Resp 16 10/16/18 07:08 BP 157/70 H 10/16/18 08:26 Pulse Ox 94 L 10/16/18 07:08 Weight - Most Recent: 87.634 kg I&O - Last 24 Hours: Intake & Output 10/15/18 10/16/18 10/16/18 22:59 06:59 14:59 Intake Total 540 720 Balance 540 720 Lab Results Last 24 Hours: Laboratory Results - last 24 hr 10/15/18 10/15/18 10/15/18 Range/Units 20:53 21:18 21:18 WBC 11.61 H (4.0-11.0) K/uL RBC 3.70 L (4.50-5.90) M/uL Hgb 11.4 L (13.0-17.0) g/dL Hct 35.1 L (38.0-50.0) % MCV 94.9 (80.0-98.0) fL MCH 30.8 (27.0-32.0) pg MCHC 32.5 (31.0-37.0) g/dL RDW Std Deviation 50.0 (28.0-62.0) fl RDW Coeff of Marshall 15 (11.0-15.0) % Plt Count 205 (150-400) K/uL MPV 9.60 (7.40-12.00) fL Neut % (Auto) 84.4 H (48.0-80.0) % Lymph % (Auto) 5.2 L (16.0-40.0) % Gem % (Auto) 9.0 (0.0-15.0) % Eos % (Auto) 1.3 (0.0-7.0) % Baso % (Auto) 0.1 (0.0-1.5) % Neut # (Auto) 9.8 H (1.4-5.7) K/uL Lymph # (Auto) 0.6 (0.6-2.4) K/uL Gem # (Auto) 1.0 H (0.0-0.8) K/uL Eos # (Auto) 0.2 (0.0-0.7) K/uL Baso # (Auto) 0.0 (0.0-0.1) K/uL Nucleated RBC % 0.0 /100WBC Nucleated RBCs # 0 K/uL INR 1.04 Sodium (136-148) mmol/L Potassium (3.5-5.1) mmol/L Chloride (98-107) mmol/L Carbon Dioxide (21.0-32.0) mmol/L BUN (7.0-18.0) mg/dL Creatinine (0.8-1.3) mg/dL Est Cr Clr Drug Dosing Estimated GFR (MDRD) ml/min Glucose (74-106) mg/dL POC Glucose 149 H (60-110) mg/dL Hemoglobin A1c (4.5-6.2) % Calcium (8.5-10.1) mg/dL Total Bilirubin (0.2-1.0) mg/dL AST (15-37) IU/L ALT (14-63) IU/L Alkaline Phosphatase (46-116) U/L Troponin I (0.000-0.056) ng/mL Total Protein (6.4-8.2) g/dL Albumin (3.4-5.0) g/dL Globulin (2.6-4.0) g/dL Albumin/Globulin Ratio (0.9-1.6) Urine Color Urine Appearance Urine pH (5.0-8.0) Ur Specific [place] (1.001-1.035) Urine Protein (NEGATIVE) mg/dL Urine Glucose (UA) (NEGATIVE) mg/dL Urine Ketones (NEGATIVE) mg/dL Urine Occult Blood (NEGATIVE) Urine Nitrite (NEGATIVE) Urine Bilirubin (NEGATIVE) Urine Urobilinogen (<2.0) EU/dL Ur Leukocyte Esterase (NEGATIVE) 10/15/18 10/15/18 10/16/18 Range/Units 21:18 23:20 01:38 WBC (4.0-11.0) K/uL RBC (4.50-5.90) M/uL Hgb (13.0-17.0) g/dL Hct (38.0-50.0) % MCV (80.0-98.0) fL MCH (27.0-32.0) pg MCHC (31.0-37.0) g/dL RDW Std Deviation (28.0-62.0) fl RDW Coeff of Marshall (11.0-15.0) % Plt Count (150-400) K/uL MPV (7.40-12.00) fL Neut % (Auto) (48.0-80.0) % Lymph % (Auto) (16.0-40.0) % Gem % (Auto) (0.0-15.0) % Eos % (Auto) (0.0-7.0) % Baso % (Auto) (0.0-1.5) % Neut # (Auto) (1.4-5.7) K/uL Lymph # (Auto) (0.6-2.4) K/uL Gem # (Auto) (0.0-0.8) K/uL Eos # (Auto) (0.0-0.7) K/uL Baso # (Auto) (0.0-0.1) K/uL Nucleated RBC % /100WBC Nucleated RBCs # K/uL INR Sodium 144 (136-148) mmol/L Potassium 3.9 (3.5-5.1) mmol/L Chloride 106 (98-107) mmol/L Carbon Dioxide 26.0 (21.0-32.0) mmol/L BUN 35 H (7.0-18.0) mg/dL Creatinine 1.6 H (0.8-1.3) mg/dL Est Cr Clr Drug Dosing TNP Estimated GFR (MDRD) 41.2 ml/min Glucose 50 L (74-106) mg/dL POC Glucose 56 L (60-110) mg/dL Hemoglobin A1c (4.5-6.2) % Calcium 8.9 (8.5-10.1) mg/dL Total Bilirubin 0.3 (0.2-1.0) mg/dL AST 14 L (15-37) IU/L ALT 16 (14-63) IU/L Alkaline Phosphatase 58 (46-116) U/L Troponin I < 0.050 (0.000-0.056) ng/mL Total Protein 6.7 (6.4-8.2) g/dL Albumin 3.0 L (3.4-5.0) g/dL Globulin 3.7 (2.6-4.0) g/dL Albumin/Globulin Ratio 0.8 L (0.9-1.6) Urine Color YELLOW Urine Appearance CLEAR Urine pH 5.5 (5.0-8.0) Ur Specific [place] 1.020 (1.001-1.035) Urine Protein NEGATIVE (NEGATIVE) mg/dL Urine Glucose (UA) NEGATIVE (NEGATIVE) mg/dL Urine Ketones NEGATIVE (NEGATIVE) mg/dL Urine Occult Blood NEGATIVE (NEGATIVE) Urine Nitrite NEGATIVE (NEGATIVE) Urine Bilirubin NEGATIVE (NEGATIVE) Urine Urobilinogen 0.2 (<2.0) EU/dL Ur Leukocyte Esterase NEGATIVE (NEGATIVE) 10/16/18 10/16/18 10/16/18 Range/Units 01:55 02:39 05:30 WBC (4.0-11.0) K/uL RBC (4.50-5.90) M/uL Hgb (13.0-17.0) g/dL Hct (38.0-50.0) % MCV (80.0-98.0) fL MCH (27.0-32.0) pg MCHC (31.0-37.0) g/dL RDW Std Deviation (28.0-62.0) fl RDW Coeff of Marshall (11.0-15.0) % Plt Count (150-400) K/uL MPV (7.40-12.00) fL Neut % (Auto) (48.0-80.0) % Lymph % (Auto) (16.0-40.0) % Gem % (Auto) (0.0-15.0) % Eos % (Auto) (0.0-7.0) % Baso % (Auto) (0.0-1.5) % Neut # (Auto) (1.4-5.7) K/uL Lymph # (Auto) (0.6-2.4) K/uL Gem # (Auto) (0.0-0.8) K/uL Eos # (Auto) (0.0-0.7) K/uL Baso # (Auto) (0.0-0.1) K/uL Nucleated RBC % /100WBC Nucleated RBCs # K/uL INR Sodium (136-148) mmol/L Potassium (3.5-5.1) mmol/L Chloride (98-107) mmol/L Carbon Dioxide (21.0-32.0) mmol/L BUN (7.0-18.0) mg/dL Creatinine (0.8-1.3) mg/dL Est Cr Clr Drug Dosing Estimated GFR (MDRD) ml/min Glucose (74-106) mg/dL POC Glucose 47 L 128 H (60-110) mg/dL Hemoglobin A1c 6.8 H (4.5-6.2) % Calcium (8.5-10.1) mg/dL Total Bilirubin (0.2-1.0) mg/dL AST (15-37) IU/L ALT (14-63) IU/L Alkaline Phosphatase (46-116) U/L Troponin I (0.000-0.056) ng/mL Total Protein (6.4-8.2) g/dL Albumin (3.4-5.0) g/dL Globulin (2.6-4.0) g/dL Albumin/Globulin Ratio (0.9-1.6) Urine Color Urine Appearance Urine pH (5.0-8.0) Ur Specific [place] (1.001-1.035) Urine Protein (NEGATIVE) mg/dL Urine Glucose (UA) (NEGATIVE) mg/dL Urine Ketones (NEGATIVE) mg/dL Urine Occult Blood (NEGATIVE) Urine Nitrite (NEGATIVE) Urine Bilirubin (NEGATIVE) Urine Urobilinogen (<2.0) EU/dL Ur Leukocyte Esterase (NEGATIVE) 10/16/18 10/16/18 10/16/18 Range/Units 06:04 06:04 06:14 WBC 9.87 (4.0-11.0) K/uL RBC 3.46 L (4.50-5.90) M/uL Hgb 10.7 L (13.0-17.0) g/dL Hct 32.5 L (38.0-50.0) % MCV 93.9 (80.0-98.0) fL MCH 30.9 (27.0-32.0) pg MCHC 32.9 (31.0-37.0) g/dL RDW Std Deviation 49.1 (28.0-62.0) fl RDW Coeff of Marshall 15 (11.0-15.0) % Plt Count 194 (150-400) K/uL MPV 10.50 (7.40-12.00) fL Neut % (Auto) (48.0-80.0) % Lymph % (Auto) (16.0-40.0) % Gem % (Auto) (0.0-15.0) % Eos % (Auto) (0.0-7.0) % Baso % (Auto) (0.0-1.5) % Neut # (Auto) (1.4-5.7) K/uL Lymph # (Auto) (0.6-2.4) K/uL Gem # (Auto) (0.0-0.8) K/uL Eos # (Auto) (0.0-0.7) K/uL Baso # (Auto) (0.0-0.1) K/uL Nucleated RBC % 0.0 /100WBC Nucleated RBCs # 0 K/uL INR Sodium 144 (136-148) mmol/L Potassium 4.9 (3.5-5.1) mmol/L Chloride 108 H (98-107) mmol/L Carbon Dioxide 24.9 (21.0-32.0) mmol/L BUN 30 H (7.0-18.0) mg/dL Creatinine 1.3 (0.8-1.3) mg/dL Est Cr Clr Drug Dosing 39.46 Estimated GFR (MDRD) 52.3 ml/min Glucose 68 L (74-106) mg/dL POC Glucose 69 (60-110) mg/dL Hemoglobin A1c (4.5-6.2) % Calcium 8.7 (8.5-10.1) mg/dL Total Bilirubin (0.2-1.0) mg/dL AST (15-37) IU/L ALT (14-63) IU/L Alkaline Phosphatase (46-116) U/L Troponin I (0.000-0.056) ng/mL Total Protein (6.4-8.2) g/dL Albumin (3.4-5.0) g/dL Globulin (2.6-4.0) g/dL Albumin/Globulin Ratio (0.9-1.6) Urine Color Urine Appearance Urine pH (5.0-8.0) Ur Specific [place] (1.001-1.035) Urine Protein (NEGATIVE) mg/dL Urine Glucose (UA) (NEGATIVE) mg/dL Urine Ketones (NEGATIVE) mg/dL Urine Occult Blood (NEGATIVE) Urine Nitrite (NEGATIVE) Urine Bilirubin (NEGATIVE) Urine Urobilinogen (<2.0) EU/dL Ur Leukocyte Esterase (NEGATIVE) 10/16/18 Range/Units 08:53 WBC (4.0-11.0) K/uL RBC (4.50-5.90) M/uL Hgb (13.0-17.0) g/dL Hct (38.0-50.0) % MCV (80.0-98.0) fL MCH (27.0-32.0) pg MCHC (31.0-37.0) g/dL RDW Std Deviation (28.0-62.0) fl RDW Coeff of Marshall (11.0-15.0) % Plt Count (150-400) K/uL MPV (7.40-12.00) fL Neut % (Auto) (48.0-80.0) % Lymph % (Auto) (16.0-40.0) % Gem % (Auto) (0.0-15.0) % Eos % (Auto) (0.0-7.0) % Baso % (Auto) (0.0-1.5) % Neut # (Auto) (1.4-5.7) K/uL Lymph # (Auto) (0.6-2.4) K/uL Gem # (Auto) (0.0-0.8) K/uL Eos # (Auto) (0.0-0.7) K/uL Baso # (Auto) (0.0-0.1) K/uL Nucleated RBC % /100WBC Nucleated RBCs # K/uL INR Sodium (136-148) mmol/L Potassium (3.5-5.1) mmol/L Chloride (98-107) mmol/L Carbon Dioxide (21.0-32.0) mmol/L BUN (7.0-18.0) mg/dL Creatinine (0.8-1.3) mg/dL Est Cr Clr Drug Dosing Estimated GFR (MDRD) ml/min Glucose (74-106) mg/dL POC Glucose 144 H (60-110) mg/dL Hemoglobin A1c (4.5-6.2) % Calcium (8.5-10.1) mg/dL Total Bilirubin (0.2-1.0) mg/dL AST (15-37) IU/L ALT (14-63) IU/L Alkaline Phosphatase (46-116) U/L Troponin I (0.000-0.056) ng/mL Total Protein (6.4-8.2) g/dL Albumin (3.4-5.0) g/dL Globulin (2.6-4.0) g/dL Albumin/Globulin Ratio (0.9-1.6) Urine Color Urine Appearance Urine pH (5.0-8.0) Ur Specific [place] (1.001-1.035) Urine Protein (NEGATIVE) mg/dL Urine Glucose (UA) (NEGATIVE) mg/dL Urine Ketones (NEGATIVE) mg/dL Urine Occult Blood (NEGATIVE) Urine Nitrite (NEGATIVE) Urine Bilirubin (NEGATIVE) Urine Urobilinogen (<2.0) EU/dL Ur Leukocyte Esterase (NEGATIVE) Med Orders - Current: Current Medications Amlodipine Besylate (Norvasc) 5 mg PO DAILY [facility] Last Admin: 10/16/18 08:26 Dose: 5 mg Bacitracin (Bacitracin Oint) 1 gm TOP DAILY [facility] Cefazolin Sodium/Dextrose 1 gm (/ Premix) 50 mls @ 100 mls/hr IV Q8H [facility] Last Admin: 10/16/18 06:13 Dose: 100 mls/hr Metoprolol Tartrate (Lopressor) 50 mg PO BID [facility] Last Admin: 10/16/18 08:26 Dose: 50 mg Non-Formulary Medication (Rosuvastatin Calcium [Rosuvastatin Calcium]) 20 mg PO BEDTIME [facility] Discontinued Medications Bacitracin (Bacitracin Oint 1 Gm) 10 dose TOP ONETIME ONE Stop: 10/15/18 21:48 Last Admin: 10/15/18 22:06 Dose: 10 dose Bacitracin (Bacitracin Oint) Confirm Administered Dose 28.35 gm .ROUTE .STK-MED ONE Stop: 10/16/18 09:16 Last Admin: 10/16/18 09:28 Dose: Not Given Cefazolin Sodium/Dextrose 1 gm (/ Premix) 50 mls @ 100 mls/hr IV ONETIME ONE Stop: 10/15/18 21:28 Last Admin: 10/15/18 22:06 Dose: 100 mls/hr Lidocaine/Epinephrine (Xylocaine 1% With Epinephrine 1:100,000) 20 ml INJECT ONETIME ONE Stop: 10/15/18 21:34 Last Admin: 10/15/18 22:07 Dose: 20 ml Lidocaine/Epinephrine (Xylocaine 1% With Epinephrine 1:100,000) Confirm Administered Dose 20 ml .ROUTE .STK-MED ONE Stop: 10/15/18 21:32 Last Admin: 10/15/18 22:07 Dose: Not Given - Exam Quality Assessment: Supplemental Oxygen General: Alert, Oriented HEENT: Pupils Equal, Pupils Reactive Lungs: Normal Respiratory Effort Extremities: Normal Range of Motion, Non-Tender, Other (The incision appears intact with no evidence of infection or drainage. The open area of the wound appears healthy with the base appearing bright red. The denuded skin that I sutured to the wound base does not appear compromised at this point.) - Problem List & Annotations (1) Skin tear SNOMED Code(s): 905446847 Code(s): RXC7546 - Status: Acute Current Visit: Yes (2) Laceration SNOMED Code(s): 090250784 Code(s): LIK4084 - Status: Acute Current Visit: Yes (3) Left radial head fracture SNOMED Code(s): 738435349 Code(s): S52.122A - DISP FX OF HEAD OF LEFT RADIUS, INIT FOR CLOS FX Status : Acute Current Visit: Yes (4) Upper extremity injury SNOMED Code(s): 993459665 Code(s): S49.90XA - UNSP INJURY OF SHOULDER AND UPPER ARM, UNSP ARM, INIT ENCNTR Status: Acute Current Visit: Yes - Problem List Review Problem List Initiated/Reviewed/Updated: Yes - My Orders Last 24 Hours: My Active Orders 10/16/18 07:00 ceFAZolin [Ancef] 1 gm Premix Bag 1 bag IV Q8H 10/16/18 09:15 Bacitracin [Bacitracin Oint] 1 gm TOP DAILY - Assessment Assessment:: I consulted the orthopedics team this morning regarding his radial head fracture. 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 From a wound standpoint he will require outpatient physical therapy consult for daily wound dressing changes. He will need bacitracin and Adaptic applied to the open areas and proximal half of his laceration. This should be covered then with 4 x 4 gauze and Kerlix. The splint can then be placed over the top of this. He had a small skin tear on his distal left forearm. I placed Steri- Strips over this. It brought the skin together well. Today placed a small amount of bacitracin and Adaptic over this and covered it with a Kerlix gauze. The Steri-Strips should stay in place for 1 week. In the future he can be dressed with dry Adaptic and wrapped in the Kerlix gauze to hold that in place. I will follow-up with his wound at physical therapy department in the [facility] [address] on a weekly basis. - Plan Plan:: 88 yo male admitted following a fall with arm laceration due to hypoglycemia. Laceration: Dr. Figueredo has been consulted and is tending to wound in the ED Hypoglycemia: last glucose was 149, will monitor with frequent accuchecks and hold hypoglycemics
--- NOTE | 2018-10-16 14:27 | PCM.CONS ---
H&P History of Present Illness - General Date of Service: 10/16/18 Admit Problem/Dx: L arm skin tear Source of Information: Patient, Old Records History Limitations: Reports: No Limitations - History of Present Illness Initial Comments - Free Text/Narative: patient is an 88 y/o male who recently underwent left CTR. Yesterday had an episode of hypoglycemia and fell, sustaining an injury to his LUE. Sustained a tear of the skin which was repaired by Dr. Figueredo. XR also showed extensive degenerative changes in the left elbow along with a possible nondisplaced radial head fracture. Patient denies previous injury to the left elbow. No other complaints. Quality: Reports: Ache Improves with: Reports: Immobilization Worsens with: Reports: Movement Context: Reports: Trauma Left Middle Frontal Elbow Pain Score (Numeric/FACES): 0 - Related Data Allergies/Adverse Reactions: Allergies Allergy/AdvReac Type Severity Reaction Status Date / Time No Known Allergies Allergy Verified 10/15/18 22:08 Home Medications: Home Meds Aspirin [Adult Aspirin] 81 mg PO DAILY 10/09/18 [History] Cholecalciferol (Vitamin D3) [Vitamin D3] 2,000 units PO DAILY 10/09/18 [History ] Cyanocobalamin (Vitamin B12) [Vitamin B12] 1,000 mcg PO DAILY 10/09/18 [History] Docusate Sodium [Dulcolax Stool Softener] 1 tab PO ASDIRECTED PRN 10/09/18 [ History] Finasteride [Proscar] 5 mg PO DAILY 10/09/18 [History] Fish Oil/DHA/EPA [Fish Oil 1,200 MG] 0 tab PO BID 10/09/18 [History] Ibuprofen [Advil] 2 tab PO ASDIRECTED PRN 10/09/18 [History] Latanoprost/Pf [Latanoprost 0.005% Eye Drop] 1 drop EYEBOTH QPM 10/09/18 [ History] Losartan Potassium 50 mg PO BEDTIME 10/09/18 [History] Losartan Potassium 100 mg PO ACBREAKFAST 10/09/18 [History] Metoprolol Tartrate 50 mg PO BID 10/09/18 [History] Omeprazole Magnesium [Prilosec Otc] 20 mg PO ASDIRECTED PRN 10/09/18 [History] Pioglitazone HCl 30 mg PO DAILY 10/09/18 [History] Rosuvastatin Calcium 20 mg PO BEDTIME 10/09/18 [History] Tamsulosin [Flomax] 0.4 mg PO DAILY 10/09/18 [History] Vit C/Juan J Ac/Lut/Copper/ZnOx [Preservision Lutein Softgel] 1 cap PO BID [History] Vitamin B Complex [Super B-50 Complex] 1 tab PO DAILY 10/09/18 [History] amLODIPine Besylate [Amlodipine Besylate] 5 mg PO DAILY 10/09/18 [History] metFORMIN HCl [Fortamet] 500 mg PO BEDTIME 10/09/18 [History] metFORMIN HCl [Metformin ER Osmotic] 1,000 mg PO ACBREAKFAST 10/09/18 [History] Acetaminophen/Codeine [Tylenol with Codeine No.3 300MG/30MG] 1 - 2 tab PO Q6H PRN #20 tablet 10/11/18 [Rx] Glimepiride 2 mg PO BID #0 10/16/18 [Rx] Past Medical History HEENT History: Reports: Cataract, Impaired Vision, Macular Degeneration, Other ( See Below) Other HEENT History: wears glasses, top and bottom dentures, darci hearing aids Cardiovascular History: Reports: Heart Valve Replacement, High Cholesterol, Hypertension Respiratory History: Reports: None Gastrointestinal History: Reports: GERD Genitourinary History: Reports: BPH Other Genitourinary History: CKD, bladder cancer Musculoskeletal History: Reports: Neck Pain, Chronic, Osteoarthritis Other Musculoskeletal History: DDD Neurological History: Reports: None Psychiatric History: Reports: None Endocrine/Metabolic History: Reports: Diabetes, Type II Hematologic History: Reports: None Immunologic History: Reports: None Oncologic (Cancer) History: Reports: Bladder, Other (See Below) Other Oncologic History: hx skin cancer Dermatologic History: Reports: None - Past Surgical History Head Surgeries/Procedures: Reports: None HEENT Surgical History: Reports: Cataract Surgery, Tonsillectomy Cardiovascular Surgical History: Reports: Valve Replacement Respiratory Surgical History: Reports: None Male Surgical History: Reports: TURBT-Transurethral Resection of Bladder Tumor Neurological Surgical History: Reports: C-Spine Other Neurological Surgeries/Procedures: hx neck surgery Musculoskeletal Surgical History: Reports: Knee Replacement, Other (See Below) Other Musculoskeletal Surgeries/Procedures:: elbow surgery,, darci knee replacements Dermatological Surgical History: Reports: Skin Biopsy Social & Family History - Family History Family Medical History: Noncontributory - Tobacco Use Smoking Status *Q: Former Smoker Used Tobacco, but Quit: No Month/Year Tobacco Last Used: September 2018 Tobacco Use Comment: Patient a former smoker, quit over 50 years ago. Currently chews. Second Hand Smoke Exposure: No - Caffeine Use Caffeine Use: Reports: Coffee Caffeine Use Comment: 2-3 cups of coffee a day - Recreational Drug Use Recreational Drug Use: No H&P Review of Systems - Review of Systems: Review Of Systems: See Below General: Reports: No Symptoms HEENT: Reports: No Symptoms Pulmonary: Reports: No Symptoms Cardiovascular: Reports: No Symptoms Gastrointestinal: Reports: No Symptoms Genitourinary: Reports: No Symptoms Psychiatric: Reports: No Symptoms Neurological: Reports: No Symptoms Exam - Exam Exam: See Below - Vital Signs Vital Signs: Last Vital Signs Temp 97.4 F 10/16/18 11:24 Pulse 65 10/16/18 11:24 Resp 16 10/16/18 11:24 BP 127/62 10/16/18 11:24 Pulse Ox 95 10/16/18 11:24 Weight: 87.634 kg - Exam General: Alert, Oriented, 4 HEENT: Conjunctiva Clear, Hearing Intact Neck: Supple, Trachea Midline, 2 Lungs: Normal Respiratory Effort Cardiovascular: Regular Rate Psychiatric: Alert, Normal Affect, Normal Mood Physical Exam Comments:: Exam of LUE shows dressing in place around elbow. Dressing not removed. ROM limited from -45 to 95 degrees of flexion. Pain with pronation/supination. CTR incision clean/dry. Sutures intact. AIN/PIN/uln motor intact. Rad/uln/med sensation intact. Rad pulse 2+. - Patient Data Lab Results Last 24 hrs: Laboratory Results - last 24 hr 10/15/18 10/15/18 10/15/18 Range/Units 20:53 21:18 21:18 WBC 11.61 H (4.0-11.0) K/uL RBC 3.70 L (4.50-5.90) M/uL Hgb 11.4 L (13.0-17.0) g/dL Hct 35.1 L (38.0-50.0) % MCV 94.9 (80.0-98.0) fL MCH 30.8 (27.0-32.0) pg MCHC 32.5 (31.0-37.0) g/dL RDW Std Deviation 50.0 (28.0-62.0) fl RDW Coeff of [place] 15 (11.0-15.0) % Plt Count 205 (150-400) K/uL MPV 9.60 (7.40-12.00) fL Neut % (Auto) 84.4 H (48.0-80.0) % Lymph % (Auto) 5.2 L (16.0-40.0) % Crawford % (Auto) 9.0 (0.0-15.0) % Eos % (Auto) 1.3 (0.0-7.0) % Baso % (Auto) 0.1 (0.0-1.5) % Neut # (Auto) 9.8 H (1.4-5.7) K/uL Lymph # (Auto) 0.6 (0.6-2.4) K/uL Crawford # (Auto) 1.0 H (0.0-0.8) K/uL Eos # (Auto) 0.2 (0.0-0.7) K/uL Baso # (Auto) 0.0 (0.0-0.1) K/uL Nucleated RBC % 0.0 /100WBC Nucleated RBCs # 0 K/uL INR 1.04 Sodium (136-148) mmol/L Potassium (3.5-5.1) mmol/L Chloride (98-107) mmol/L Carbon Dioxide (21.0-32.0) mmol/L BUN (7.0-18.0) mg/dL Creatinine (0.8-1.3) mg/dL Est Cr Clr Drug Dosing Estimated GFR (MDRD) ml/min Glucose (74-106) mg/dL POC Glucose 149 H (60-110) mg/dL Hemoglobin A1c (4.5-6.2) % Calcium (8.5-10.1) mg/dL Total Bilirubin (0.2-1.0) mg/dL AST (15-37) IU/L ALT (14-63) IU/L Alkaline Phosphatase (46-116) U/L Troponin I (0.000-0.056) ng/mL Total Protein (6.4-8.2) g/dL Albumin (3.4-5.0) g/dL Globulin (2.6-4.0) g/dL Albumin/Globulin Ratio (0.9-1.6) Urine Color Urine Appearance Urine pH (5.0-8.0) Ur Specific [place] (1.001-1.035) Urine Protein (NEGATIVE) mg/dL Urine Glucose (UA) (NEGATIVE) mg/dL Urine Ketones (NEGATIVE) mg/dL Urine Occult Blood (NEGATIVE) Urine Nitrite (NEGATIVE) Urine Bilirubin (NEGATIVE) Urine Urobilinogen (<2.0) EU/dL Ur Leukocyte Esterase (NEGATIVE) 10/15/18 10/15/18 10/16/18 Range/Units 21:18 23:20 01:38 WBC (4.0-11.0) K/uL RBC (4.50-5.90) M/uL Hgb (13.0-17.0) g/dL Hct (38.0-50.0) % MCV (80.0-98.0) fL MCH (27.0-32.0) pg MCHC (31.0-37.0) g/dL RDW Std Deviation (28.0-62.0) fl RDW Coeff of [place] (11.0-15.0) % Plt Count (150-400) K/uL MPV (7.40-12.00) fL Neut % (Auto) (48.0-80.0) % Lymph % (Auto) (16.0-40.0) % Crawford % (Auto) (0.0-15.0) % Eos % (Auto) (0.0-7.0) % Baso % (Auto) (0.0-1.5) % Neut # (Auto) (1.4-5.7) K/uL Lymph # (Auto) (0.6-2.4) K/uL Crawford # (Auto) (0.0-0.8) K/uL Eos # (Auto) (0.0-0.7) K/uL Baso # (Auto) (0.0-0.1) K/uL Nucleated RBC % /100WBC Nucleated RBCs # K/uL INR Sodium 144 (136-148) mmol/L Potassium 3.9 (3.5-5.1) mmol/L Chloride 106 (98-107) mmol/L Carbon Dioxide 26.0 (21.0-32.0) mmol/L BUN 35 H (7.0-18.0) mg/dL Creatinine 1.6 H (0.8-1.3) mg/dL Est Cr Clr Drug Dosing TNP Estimated GFR (MDRD) 41.2 ml/min Glucose 50 L (74-106) mg/dL POC Glucose 56 L (60-110) mg/dL Hemoglobin A1c (4.5-6.2) % Calcium 8.9 (8.5-10.1) mg/dL Total Bilirubin 0.3 (0.2-1.0) mg/dL AST 14 L (15-37) IU/L ALT 16 (14-63) IU/L Alkaline Phosphatase 58 (46-116) U/L Troponin I < 0.050 (0.000-0.056) ng/mL Total Protein 6.7 (6.4-8.2) g/dL Albumin 3.0 L (3.4-5.0) g/dL Globulin 3.7 (2.6-4.0) g/dL Albumin/Globulin Ratio 0.8 L (0.9-1.6) Urine Color YELLOW Urine Appearance CLEAR Urine pH 5.5 (5.0-8.0) Ur Specific [place] 1.020 (1.001-1.035) Urine Protein NEGATIVE (NEGATIVE) mg/dL Urine Glucose (UA) NEGATIVE (NEGATIVE) mg/dL Urine Ketones NEGATIVE (NEGATIVE) mg/dL Urine Occult Blood NEGATIVE (NEGATIVE) Urine Nitrite NEGATIVE (NEGATIVE) Urine Bilirubin NEGATIVE (NEGATIVE) Urine Urobilinogen 0.2 (<2.0) EU/dL Ur Leukocyte Esterase NEGATIVE (NEGATIVE) 10/16/18 10/16/18 10/16/18 Range/Units 01:55 02:39 05:30 WBC (4.0-11.0) K/uL RBC (4.50-5.90) M/uL Hgb (13.0-17.0) g/dL Hct (38.0-50.0) % MCV (80.0-98.0) fL MCH (27.0-32.0) pg MCHC (31.0-37.0) g/dL RDW Std Deviation (28.0-62.0) fl RDW Coeff of [place] (11.0-15.0) % Plt Count (150-400) K/uL MPV (7.40-12.00) fL Neut % (Auto) (48.0-80.0) % Lymph % (Auto) (16.0-40.0) % Crawford % (Auto) (0.0-15.0) % Eos % (Auto) (0.0-7.0) % Baso % (Auto) (0.0-1.5) % Neut # (Auto) (1.4-5.7) K/uL Lymph # (Auto) (0.6-2.4) K/uL Crawford # (Auto) (0.0-0.8) K/uL Eos # (Auto) (0.0-0.7) K/uL Baso # (Auto) (0.0-0.1) K/uL Nucleated RBC % /100WBC Nucleated RBCs # K/uL INR Sodium (136-148) mmol/L Potassium (3.5-5.1) mmol/L Chloride (98-107) mmol/L Carbon Dioxide (21.0-32.0) mmol/L BUN (7.0-18.0) mg/dL Creatinine (0.8-1.3) mg/dL Est Cr Clr Drug Dosing Estimated GFR (MDRD) ml/min Glucose (74-106) mg/dL POC Glucose 47 L 128 H (60-110) mg/dL Hemoglobin A1c 6.8 H (4.5-6.2) % Calcium (8.5-10.1) mg/dL Total Bilirubin (0.2-1.0) mg/dL AST (15-37) IU/L ALT (14-63) IU/L Alkaline Phosphatase (46-116) U/L Troponin I (0.000-0.056) ng/mL Total Protein (6.4-8.2) g/dL Albumin (3.4-5.0) g/dL Globulin (2.6-4.0) g/dL Albumin/Globulin Ratio (0.9-1.6) Urine Color Urine Appearance Urine pH (5.0-8.0) Ur Specific [place] (1.001-1.035) Urine Protein (NEGATIVE) mg/dL Urine Glucose (UA) (NEGATIVE) mg/dL Urine Ketones (NEGATIVE) mg/dL Urine Occult Blood (NEGATIVE) Urine Nitrite (NEGATIVE) Urine Bilirubin (NEGATIVE) Urine Urobilinogen (<2.0) EU/dL Ur Leukocyte Esterase (NEGATIVE) 10/16/18 10/16/18 10/16/18 Range/Units 06:04 06:04 06:14 WBC 9.87 (4.0-11.0) K/uL RBC 3.46 L (4.50-5.90) M/uL Hgb 10.7 L (13.0-17.0) g/dL Hct 32.5 L (38.0-50.0) % MCV 93.9 (80.0-98.0) fL MCH 30.9 (27.0-32.0) pg MCHC 32.9 (31.0-37.0) g/dL RDW Std Deviation 49.1 (28.0-62.0) fl RDW Coeff of [place] 15 (11.0-15.0) % Plt Count 194 (150-400) K/uL MPV 10.50 (7.40-12.00) fL Neut % (Auto) (48.0-80.0) % Lymph % (Auto) (16.0-40.0) % [place] % (Auto) (0.0-15.0) % Eos % (Auto) (0.0-7.0) % Baso % (Auto) (0.0-1.5) % Neut # (Auto) (1.4-5.7) K/uL Lymph # (Auto) (0.6-2.4) K/uL [place] # (Auto) (0.0-0.8) K/uL Eos # (Auto) (0.0-0.7) K/uL Baso # (Auto) (0.0-0.1) K/uL Nucleated RBC % 0.0 /100WBC Nucleated RBCs # 0 K/uL INR Sodium 144 (136-148) mmol/L Potassium 4.9 (3.5-5.1) mmol/L Chloride 108 H (98-107) mmol/L Carbon Dioxide 24.9 (21.0-32.0) mmol/L BUN 30 H (7.0-18.0) mg/dL Creatinine 1.3 (0.8-1.3) mg/dL Est Cr Clr Drug Dosing 39.46 Estimated GFR (MDRD) 52.3 ml/min Glucose 68 L (74-106) mg/dL POC Glucose 69 (60-110) mg/dL Hemoglobin A1c (4.5-6.2) % Calcium 8.7 (8.5-10.1) mg/dL Total Bilirubin (0.2-1.0) mg/dL AST (15-37) IU/L ALT (14-63) IU/L Alkaline Phosphatase (46-116) U/L Troponin I (0.000-0.056) ng/mL Total Protein (6.4-8.2) g/dL Albumin (3.4-5.0) g/dL Globulin (2.6-4.0) g/dL Albumin/Globulin Ratio (0.9-1.6) Urine Color Urine Appearance Urine pH (5.0-8.0) Ur Specific [place] (1.001-1.035) Urine Protein (NEGATIVE) mg/dL Urine Glucose (UA) (NEGATIVE) mg/dL Urine Ketones (NEGATIVE) mg/dL Urine Occult Blood (NEGATIVE) Urine Nitrite (NEGATIVE) Urine Bilirubin (NEGATIVE) Urine Urobilinogen (<2.0) EU/dL Ur Leukocyte Esterase (NEGATIVE) 10/16/18 Range/Units 08:53 WBC (4.0-11.0) K/uL RBC (4.50-5.90) M/uL Hgb (13.0-17.0) g/dL Hct (38.0-50.0) % MCV (80.0-98.0) fL MCH (27.0-32.0) pg MCHC (31.0-37.0) g/dL RDW Std Deviation (28.0-62.0) fl RDW Coeff of [place] (11.0-15.0) % Plt Count (150-400) K/uL MPV (7.40-12.00) fL Neut % (Auto) (48.0-80.0) % Lymph % (Auto) (16.0-40.0) % [place] % (Auto) (0.0-15.0) % Eos % (Auto) (0.0-7.0) % Baso % (Auto) (0.0-1.5) % Neut # (Auto) (1.4-5.7) K/uL Lymph # (Auto) (0.6-2.4) K/uL [place] # (Auto) (0.0-0.8) K/uL Eos # (Auto) (0.0-0.7) K/uL Baso # (Auto) (0.0-0.1) K/uL Nucleated RBC % /100WBC Nucleated RBCs # K/uL INR Sodium (136-148) mmol/L Potassium (3.5-5.1) mmol/L Chloride (98-107) mmol/L Carbon Dioxide (21.0-32.0) mmol/L BUN (7.0-18.0) mg/dL Creatinine (0.8-1.3) mg/dL Est Cr Clr Drug Dosing Estimated GFR (MDRD) ml/min Glucose (74-106) mg/dL POC Glucose 144 H (60-110) mg/dL Hemoglobin A1c (4.5-6.2) % Calcium (8.5-10.1) mg/dL Total Bilirubin (0.2-1.0) mg/dL AST (15-37) IU/L ALT (14-63) IU/L Alkaline Phosphatase (46-116) U/L Troponin I (0.000-0.056) ng/mL Total Protein (6.4-8.2) g/dL Albumin (3.4-5.0) g/dL Globulin (2.6-4.0) g/dL Albumin/Globulin Ratio (0.9-1.6) Urine Color Urine Appearance Urine pH (5.0-8.0) Ur Specific [place] (1.001-1.035) Urine Protein (NEGATIVE) mg/dL Urine Glucose (UA) (NEGATIVE) mg/dL Urine Ketones (NEGATIVE) mg/dL Urine Occult Blood (NEGATIVE) Urine Nitrite (NEGATIVE) Urine Bilirubin (NEGATIVE) Urine Urobilinogen (<2.0) EU/dL Ur Leukocyte Esterase (NEGATIVE) Result Diagrams: 10/16/18 06:04 10/16/18 06:04 Imaging Impressions Last 24 hrs: Xr of left elbow shows extensive degenerative changes. Possible nondisplaced fracture of L radial head vs impacted fracture is also noted. CT scan reviewed with Dr. Hanley. No further fracture other than that noted previously. Consult PN Assessment/Plan Procedures: Procedures ALANINE AMINO (ALT) (SGPT) (12/05/15) ASSAY OF PSA TOTAL (05/22/18) CARDIAC REHAB/MONITOR (05/12/16) CARPAL TUNNEL SURGERY (10/11/18) CHEST X-RAY 2VW FRONTAL&LATL (09/14/16) COMPLETE CBC AUTOMATED (03/21/17) COMPLETE CBC W/AUTO DIFF WBC (03/08/16) COMPREHEN METABOLIC PANEL (05/01/18) CT NECK SPINE W/O DYE (03/21/14) CYSTOSCOPY (05/19/17) DESTRUCT PREMALG LESION (02/25/14) ELECTROCARDIOGRAM TRACING (09/14/16) EMERGENCY DEPT VISIT (03/21/14) EXC TR-EXT MAL+IGNACIO 3.1-4 CM (02/25/14) EXTRACRANIAL BILAT STUDY (06/04/15) GLYCOSYLATED HEMOGLOBIN TEST (08/02/18) HOT OR COLD PACKS THERAPY (01/24/17) INJ TENDON SHEATH/LIGAMENT (03/25/14) INJECT TRIGGER POINTS 3/> (12/18/15) INSERT TEMP BLADDER CATH (03/28/14) LIPID PANEL (06/02/18) MANUAL THERAPY 1/> REGIONS (07/29/16) MASSAGE THERAPY (01/24/17) METABOLIC PANEL TOTAL CA (08/02/18) MRI CHEST SPINE W/O DYE (12/26/15) MRI NECK SPINE W/O DYE (12/26/15) MUSC TEST DONE W/N TEST COMP (07/30/16) NRV CNDJ TEST 9-10 STUDIES (07/30/16) OFFICE/OUTPATIENT VISIT EST (03/21/17) OFFICE/OUTPATIENT VISIT EST (05/14/14) OFFICE/OUTPATIENT VISIT EST (03/28/14) OFFICE/OUTPATIENT VISIT EST (03/25/14) PPSV23 VACC 2 YRS+ SUBQ/IM (12/05/15) PT EVAL LOW COMPLEX 20 MIN (12/28/16) PT EVALUATION (05/31/16) ROUTINE VENIPUNCTURE (08/02/18) THER/PROPH/DIAG INJ SC/IM (03/21/14) THERAPEUTIC EXERCISES (01/24/17) TTE W/DOPPLER COMPLETE (04/25/17) ULTRASOUND THERAPY (01/24/17) UR ALBUMIN SEMIQUANTITATIVE (05/01/18) URINALYSIS AUTO W/SCOPE (05/22/18) URINALYSIS NONAUTO W/SCOPE (05/14/14) US EXAM ABDO BACK WALL PAZ (09/09/14) US URINE CAPACITY MEASURE (04/09/14) VIT D 1 25-DIHYDROXY (09/14/16) X-RAY EXAM NECK SPINE 2-3 VW (12/05/15) X-RAY EXAM OF SPINE 1 VIEW (11/02/16) (1) Primary osteoarthritis, left elbow SNOMED Code(s): 387013095, 064117153 Code(s): M19.022 - PRIMARY OSTEOARTHRITIS, LEFT ELBOW Current Visit: Yes (2) Left radial head fracture SNOMED Code(s): 785820454 Code(s): S52.122A - DISP FX OF HEAD OF LEFT RADIUS, INIT FOR CLOS FX Current Visit: Yes Qualifiers: Encounter type: initial encounter Fracture type: closed Fracture alignment: nondisplaced Qualified Code(s): S52.125A - Nondisplaced fracture of head of left radius, initial encounter for closed fracture Problem List Initiated/Reviewed/Updated: Yes My Orders Last 24 Hours: My Active Orders 10/16/18 08:25 Elbow wo Cont Lt [CT] Routine 1. sling left UE, ROM as tolerated L wrist/elbow/shoulder 2. NWB LUE 3. observation for now. Will need to be closely followed to look for any displacement of the fracture. 4. f/u outpatient 10/24 for re-evaluation and new XR 5. skin care per Dr. Figueredo 6. stable from orthopedic standpoint. OK to discharge home when medically clear. Will sign off. Please reconsult if there are questions/concerns. Discussed with patient and family and they agree with plan.
--- NOTE | 2018-10-16 16:03 | CT ---
EXAMINATION: CT left elbow HISTORY: Evaluate fracture COMPARISON: 12/15/2018 TECHNIQUE: Axial CT imaging obtained through the left elbow without contrast. Coronal and sagittal reconstructions obtained. FINDINGS: There is moderate soft tissue swelling and subcutaneous air overlying the lateral malleolus, likely a cutaneous laceration. There is severe joint space narrowing throughout the left elbow with subchondral cystic change and sclerosis. Prominent osteophyte formation is noted. The left radial head appears grossly intact with prominent overriding osteophytes simulating impaction. No significant joint effusion. IMPRESSION: 1. Severe osteoarthritic changes noted within the left elbow without definite acute osseous abnormality. 2. Soft tissue swelling and laceration along the radial aspect of the elbow.
[2018-10-16] MEDS ORDERED: Losartan 50 MG Tab PO SCH (21:00)
[2018-10-16] MEDS ORDERED: Non-Formulary Medication 1 Each (Rosuvastatin Calcium [Rosuvastatin Calcium] 20 MG) PO SCH (21:00)
[2018-10-16] MEDS ORDERED: Rosuvastatin 10 MG Tab PO SCH (22:00)
[2018-10-16] MEDS ORDERED: metFORMIN 500 MG Tab PO SCH (22:15)
[2018-10-17] MEDS ORDERED: Losartan 50 MG Tab PO SCH (07:30)
--- NOTE | 2018-10-17 08:51 | PCM.DCSUM1 ---
Discharge Summary - Hospital Course Brief History: 88 yo male with pmh of HTN, DM and valvular heat disease who presents to the ED following a fall with laceration to left arm. Patient was noted to be confused at home EMS was called. Patient was noted to have a blood glucose of 30. He was given and amp of D50. Patient reports that he only takes oral hypoglycemics. He believes he did not eat enough today. Dr. Figueredo was consulted regarding the laceration. - Discharge Data Discharge Date: 10/17/18 Discharge Disposition: Home, Self-Care 01 Condition: Stable - Discharge Diagnosis/Problem(s) (1) Fall SNOMED Code(s): 2099855, 395403248 ICD Code: W19.XXXA - UNSPECIFIED FALL, INITIAL ENCOUNTER Status: Acute Current Visit: Yes (2) Hypoglycemia SNOMED Code(s): 738297407 ICD Code: E16.2 - HYPOGLYCEMIA, UNSPECIFIED Status: Acute Current Visit: Yes (3) Diabetes type 2, controlled SNOMED Code(s): 19649282, 357560316 ICD Code: E11.9 - TYPE 2 DIABETES MELLITUS WITHOUT COMPLICATIONS Status: Chronic Current Visit: Yes Qualifiers: Diabetes mellitus long term care social worker insulin use: without longterm use Diabetes mellitus complication status: with hypoglycemia Qualified Code(s): E11.649 - Type 2 diabetes mellitus with hypoglycemia without coma (4) Left radial head fracture SNOMED Code(s): 450210450 ICD Code: S52.122A - DISP FX OF HEAD OF LEFT RADIUS, INIT FOR CLOS FX Status: Acute Current Visit: Yes Qualifiers: Encounter type: initial encounter Fracture type: closed Fracture alignment: nondisplaced Qualified Code(s): S52.125A - Nondisplaced fracture of head of left radius, initial encounter for closed fracture (5) Skin tear SNOMED Code(s): 167267475 ICD Code: DQK4894 - Status: Acute Current Visit: Yes (6) S/P carpal tunnel release SNOMED Code(s): 126276044, 52687166, 199271272 ICD Code: Z98.890 - OTHER SPECIFIED POSTPROCEDURAL STATES Status: Chronic Current Visit: No (7) HTN (hypertension) SNOMED Code(s): 05035717 ICD Code: I10 - ESSENTIAL (PRIMARY) HYPERTENSION Status: Chronic Current Visit: Yes Qualifiers: Hypertension type: essential hypertension Qualified Code(s): I10 - Essential (primary) hypertension (8) BPH (benign prostatic hyperplasia) SNOMED Code(s): 272171547 ICD Code: N40.0 - BENIGN PROSTATIC HYPERPLASIA WITHOUT LOWER URINRY TRACT SYMP Status: Chronic Current Visit: Yes (9) Laceration SNOMED Code(s): 388794818 ICD Code: DXU3122 - Status: Acute Current Visit: Yes - Patient Summary/Data Consults: Consultations 10/15/18 21:29 Consult to Diabetic Nurse Specialist [CONS] Routine 10/16/18 09:02 Consult to Physician [CONS] Routine - Patient Instructions Diet: Diabetic Diet Activity: Non Weight Bearing (to left arm) Activity, Other: NWB LUE, sling as needed for comfort, ROM at L wrist/elbow as tolerated Driving: Do Not Drive Showering/Bathing: No Tub Bathing/Swimming Notify Provider of: Fever, Increased Pain, Swelling and Redness, Drainage, Nausea and/or Vomiting - Discharge Plan *PRESCRIPTION DRUG MONITORING PROGRAM REVIEWED*: Not Applicable *COPY OF PRESCRIPTION DRUG MONITORING REPORT IN PATIENT LENNY: Not Applicable Home Medications: Home Meds Aspirin [Adult Aspirin] 81 mg PO DAILY 10/09/18 [History] Cholecalciferol (Vitamin D3) [Vitamin D3] 2,000 units PO DAILY 10/09/18 [History ] Cyanocobalamin (Vitamin B12) [Vitamin B12] 1,000 mcg PO DAILY 10/09/18 [History] Docusate Sodium [Dulcolax Stool Softener] 1 tab PO ASDIRECTED PRN 10/09/18 [ History] Finasteride [Proscar] 5 mg PO DAILY 10/09/18 [History] Fish Oil/DHA/EPA [Fish Oil 1,200 MG] 0 tab PO BID 10/09/18 [History] Ibuprofen [Advil] 2 tab PO ASDIRECTED PRN 10/09/18 [History] Latanoprost/Pf [Latanoprost 0.005% Eye Drop] 1 drop EYEBOTH QPM 10/09/18 [ History] Losartan Potassium 50 mg PO BEDTIME 10/09/18 [History] Losartan Potassium 100 mg PO ACBREAKFAST 10/09/18 [History] Metoprolol Tartrate 50 mg PO BID 10/09/18 [History] Omeprazole Magnesium [Prilosec Otc] 20 mg PO ASDIRECTED PRN 10/09/18 [History] Pioglitazone HCl 30 mg PO DAILY 10/09/18 [History] Rosuvastatin Calcium 20 mg PO BEDTIME 10/09/18 [History] Tamsulosin [Flomax] 0.4 mg PO DAILY 10/09/18 [History] Vit C/Juan J Ac/Lut/Copper/ZnOx [Preservision Lutein Softgel] 1 cap PO BID [History] Vitamin B Complex [Super B-50 Complex] 1 tab PO DAILY 10/09/18 [History] amLODIPine Besylate [Amlodipine Besylate] 5 mg PO DAILY 10/09/18 [History] metFORMIN HCl [Fortamet] 500 mg PO BEDTIME 10/09/18 [History] metFORMIN HCl [Metformin ER Osmotic] 1,000 mg PO ACBREAKFAST 10/09/18 [History] Acetaminophen/Codeine [Tylenol with Codeine No.3 300MG/30MG] 1 - 2 tab PO Q6H PRN #20 tablet 10/11/18 [Rx] Glimepiride 2 mg PO BID #0 10/16/18 [Rx] Oxygen Therapy Mode: Room Air Patient Handouts: Hypoglycemia, [id number] Referrals: Loli Valenzuela,[facility] [Ordering Only Provider] - Lio Soriano MD [Physician] - 10/26/18 10:00 am Mahnaz Blas PA [Physician Police Surgeon] - 10/24/18 - Discharge Summary/Plan Comment DC Time >30 min.: No Discharge Summary/Plan Comment: Discharge Diagnoses: Hypoglycemia-resolved Laceration to L arm L radial head non displaced fracture HTN DM Type 2 BPH Macular degeneration Dio was admitted for hypoglycemia, we held all anti diabetic medications during his stay and monitored his BS. Initially, BS in the morning of admission in the 60s, then as the day went on and overnight BS elevated 140-200s. He is ready to go home. I spoke with PCP regarding medications, specifically Glimiperide. Dr Soriano recommended to cut his dose in half, so he will now take 2 mg BID instead of 4 mg. Dio has verbalized understanding and agrees with this change. We will continue Metformin and Actos. Jo Ann from DM education spoke with him yesterday as well. We have sent in a prescription for new glucose meter, that is for the visually impaired. For L arm laceration he will come for daily dressing changes, in which Dr Figueredo will follow and has written detailed dressing change instructions. Dr Noriega was consulted for radial head fracture. She recommended NWB to LUE ROM as tolerated. Sling PRN. She will see him next week as repeat Xray to re-evaluate it. He verbalizes understanding of care above and is in agreement. He is very eager for discharge home today. He is to return to ED or clinic if concerns should arise. - General Info Date of Service: 10/17/18 Admission Dx/Problem (Free Text: L arm skin tear Subjective Update: Sitting on edge of bed, doing well. No concerns. No pain. He is asking to go home. Functional Status: Reports: Pain Controlled, Tolerating Diet, Ambulating, Urinating - Review of Systems General: Reports: No Symptoms. Denies: Fever, Weakness, Fatigue HEENT: Reports: No Symptoms. Denies: Headaches, Sore Throat, Visual Changes Pulmonary: Reports: No Symptoms. Denies: Shortness of Breath Cardiovascular: Reports: No Symptoms. Denies: Chest Pain Gastrointestinal: Reports: No Symptoms. Denies: Abdominal Pain, Nausea, Vomiting Musculoskeletal: Reports: No Symptoms. Denies: Arm Pain Skin: Reports: No Symptoms Neurological: Reports: No Symptoms Psychiatric: Reports: No Symptoms - Patient Data Vitals - Most Recent: Last Vital Signs Temp 97.0 F 10/17/18 03:56 Pulse 96 10/17/18 03:56 Resp 18 10/16/18 19:00 BP 164/70 H 10/17/18 07:02 Pulse Ox 92 L 10/17/18 03:56 Weight - Most Recent: 87.634 kg I&O - Last 24 hours: Intake & Output 10/16/18 10/17/18 10/17/18 22:59 06:59 14:59 Intake Total 890 300 Balance 890 300 Lab Results - Last 24 hrs: Laboratory Results - last 24 hr 10/16/18 10/16/18 10/16/18 Range/Units 05:30 08:53 11:12 POC Glucose 144 H 108 (60-110) mg/dL Hemoglobin A1c 6.8 H (4.5-6.2) % 10/16/18 10/16/18 10/16/18 Range/Units 14:46 17:57 21:00 POC Glucose 132 H 164 H 270 H (60-110) mg/dL Hemoglobin A1c (4.5-6.2) % 10/17/18 Range/Units 06:45 POC Glucose 204 H (60-110) mg/dL Hemoglobin A1c (4.5-6.2) % Med Orders - Current: Current Medications Amlodipine Besylate (Norvasc) 5 mg PO DAILY [facility] Last Admin: 10/16/18 08:26 Dose: 5 mg Aspirin (Halfprin) 81 mg PO DAILY [facility] Bacitracin (Bacitracin Oint) 1 gm TOP DAILY [facility] Last Admin: 10/16/18 09:15 Dose: 1 applic Finasteride (Proscar) 5 mg PO DAILY [facility] Losartan Potassium (Cozaar) 50 mg PO BEDTIME [facility] Last Admin: 10/16/18 21:05 Dose: 50 mg Losartan Potassium (Cozaar) 100 mg PO ACBREAKFAST [facility] Last Admin: 10/17/18 07:02 Dose: 100 mg Metformin HCl (Glucophage) 500 mg PO BEDTIME [facility] Last Admin: 10/16/18 22:28 Dose: 500 mg Metoprolol Tartrate (Lopressor) 50 mg PO BID [facility] Last Admin: 10/16/18 21:05 Dose: 50 mg Rosuvastatin Calcium (Crestor) 20 mg PO BEDTIME [facility] Last Admin: 10/16/18 21:32 Dose: 20 mg Tamsulosin HCl (Flomax) 0.4 mg PO DAILY [facility] Discontinued Medications Bacitracin (Bacitracin Oint 1 Gm) 10 dose TOP ONETIME ONE Stop: 10/15/18 21:48 Last Admin: 10/15/18 22:06 Dose: 10 dose Bacitracin (Bacitracin Oint) Confirm Administered Dose 28.35 gm .ROUTE .STK-MED ONE Stop: 10/16/18 09:16 Last Admin: 10/16/18 09:28 Dose: Not Given Cefazolin Sodium/Dextrose 1 gm (/ Premix) 50 mls @ 100 mls/hr IV ONETIME ONE Stop: 10/15/18 21:28 Last Admin: 10/15/18 22:06 Dose: 100 mls/hr Cefazolin Sodium/Dextrose 1 gm (/ Premix) 50 mls @ 100 mls/hr IV Q8H JADEN Stop: 10/16/18 23:00 Last Admin: 10/16/18 15:18 Dose: 100 mls/hr Lidocaine/Epinephrine (Xylocaine 1% With Epinephrine 1:100,000) 20 ml INJECT ONETIME ONE Stop: 10/15/18 21:34 Last Admin: 10/15/18 22:07 Dose: 20 ml Lidocaine/Epinephrine (Xylocaine 1% With Epinephrine 1:100,000) Confirm Administered Dose 20 ml .ROUTE .STK-MED ONE Stop: 10/15/18 21:32 Last Admin: 10/15/18 22:07 Dose: Not Given Non-Formulary Medication (Rosuvastatin Calcium [Rosuvastatin Calcium]) 20 mg PO BEDTIME JADEN - Exam General: Reports: Alert, Oriented, Cooperative, No Acute Distress Lungs: Reports: Clear to Auscultation, Normal Respiratory Effort Cardiovascular: Reports: Regular Rate, Regular Rhythm GI/Abdominal Exam: Normal Bowel Sounds, Soft, Non-Tender Wound/Incisions: Reports: Dressing Dry and Intact (L arm), No Drainage. Denies : Erythema Neurological: Reports: No New Focal Deficit Psy/Mental Status: Reports: Alert, Normal Affect, Normal Mood
[2018-10-17] MEDS ORDERED: Finasteride 5 MG Tab PO SCH (09:00)
[2018-10-17] MEDS ORDERED: Aspirin 81 MG Tab.EC PO SCH (09:00)
[2018-10-17] MEDS ORDERED: Tamsulosin 0.4 MG Cap.ER PO SCH (09:00)
[2018-10-17] MEDS: amLODIPine 5 MG Tab PO SCH (09:03)
[2018-10-17] MEDS: Metoprolol Tartrate 50 MG Tab PO SCH (09:03)
[2018-10-17] MEDS: Bacitracin Oint 28.35 GM Tube TOP SCH (10:00)
--- NOTE | 2018-10-17 14:01 | PCM.SN ---
- Free Text/Narrative Note: Daily dressing change: 1) Remove old viktoria bandage. Save the posterior splint. Remove remainder of dressings over the wound. 2) Put bacitracin over the open area on the proximal forearm. 3) Cover the open area on the forearm and the rest of the incision with adaptic. 4) Cover the adaptic with 4 x 4 gauze. 5) Cover this and the small skin tear on the distal forearm with a roll of kerlix gauze. 6) Place splint on the back of the arm. Hold in place with an VIKTORIA wrap.
== END 2018-10-17 11:10 | disposition home or self-care (01) ==
LOC: MW.ED 20:40 → MW.MS 23:43
PROVIDERS: ADMIT Internal Medicine; ATTEND Internal Medicine
DX: E11.649 Type 2 diabetes mellitus with hypoglycemia without coma (principal); S52.125A Nondisplaced fracture of head of left radius, initial encounter for closed fracture; I12.9 Hypertensive chronic kidney disease with stage 1 through stage 4 chronic kidney disease, or unspecified chronic kidney disease; E11.22 Type 2 diabetes mellitus with diabetic chronic kidney disease; N18.9 Chronic kidney disease, unspecified; M19.022 Primary osteoarthritis, left elbow; N40.0 Benign prostatic hyperplasia without lower urinary tract symptoms; E78.00 Pure hypercholesterolemia, unspecified; W19.XXXA Unspecified fall, initial encounter; Z87.891 Personal history of nicotine dependence; Z79.82 Long term (current) use of aspirin; Z79.84 Long term (current) use of oral hypoglycemic drugs; Z79.899 Other long term (current) drug therapy
CPT/HCPCS: 13121; 36415; 70450; 71045; 72125; 73070; 73200; 80048; 80053; 81003; 82962; 83036; 84484; 85025; 85027; 85610; 93005; 96365; 96366; 96376; 99285; A9270; G0378; J0690

== ENCOUNTER 2018-11-07 13:41 | Observation (INO) | payer MEDICARE, OTHER ==
[2018-11-07] MEDS ORDERED: Ondansetron 4 MG/2 ML SDV IVPUSH PRN (13:50)
[2018-11-07] MEDS ORDERED: Sodium Chloride 0.9% 2.5 ML Syringe FLUSH PRN (13:50)
--- NOTE | 2018-11-07 13:57 | PCM.HP ---
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 Figueredo noted erythema and warmth, started him on Keflex. This morning they noted redness worsening and was seen by PCP today who contacted Dr Figueredo. She recommended admission for failed outpatient management of cellulitis to L forearm. Dio reports he has been feeling well, but over the weekend started having increased pain to ventral L forearm along with redness,swelling and warmth. This redness is covering entire forearm extending to hand and spreading proximally to axilla. He denies fevers or chills, no chest pain or SOB. He elevated his arm yesterday to help with swelling, which helped some. He reports his BS continue to be low, 40-60s. He was told to now stop Glimepiride completely. BUN 46 Cr 1.8, slightly elevated from baseline, will monitor. Leukocytosis noted , 17,000. Will obtain BC and monitor. Wound culture obtained of wound to L forearm. He will be admitted for cellulitis of L arm. - Related Data Allergies/Adverse Reactions: Allergies Allergy/AdvReac Type Severity Reaction Status Date / Time No Known Allergies Allergy Verified 10/15/18 22:08 Home Medications: Home Meds Aspirin [Adult Aspirin] 81 mg PO DAILY 10/09/18 [History] Cholecalciferol (Vitamin D3) [Vitamin D3] 2,000 units PO DAILY 10/09/18 [History ] Cyanocobalamin (Vitamin B12) [Vitamin B12] 1,000 mcg PO DAILY 10/09/18 [History] Finasteride [Proscar] 5 mg PO DAILY 10/09/18 [History] Ibuprofen [Advil] 600 tab PO BID 10/09/18 [History] Latanoprost/Pf [Latanoprost 0.005% Eye Drop] 1 drop EYEBOTH QPM 03/11/19 [ History] Losartan Potassium 50 mg PO BEDTIME 10/09/18 [History] Losartan Potassium 100 mg PO ACBREAKFAST 10/09/18 [History] Metoprolol Tartrate 50 mg PO BID 10/09/18 [History] Omeprazole Magnesium [Prilosec Otc] 20 mg PO ACBREAKFAST PRN 10/09/18 [History] Pioglitazone HCl 30 mg PO DAILY 10/09/18 [History] Rosuvastatin Calcium 20 mg PO BEDTIME 10/09/18 [History] Tamsulosin [Flomax] 0.4 mg PO DAILY 10/09/18 [History] Vit C/Juan J Ac/Lut/Copper/ZnOx [Preservision Lutein Softgel] 1 cap PO BID [History] Vitamin B Complex [Super B-50 Complex] 1 tab PO DAILY 10/09/18 [History] amLODIPine Besylate [Amlodipine Besylate] 5 mg PO DAILY 10/09/18 [History] metFORMIN HCl [Fortamet] 500 mg PO BIDMEALS 10/09/18 [History] B-Complex with Vitamin C [Super B Complex-Vitamin C] 1 tab PO DAILY 11/07/18 [ History] Carboxymethylcellulose Sodium [Refresh Plus 0.5%] 2 drop EYEBOTH BID 11/07/18 [ History] Cephalexin [Keflex] 500 mg PO QID 11/07/18 [History] Turmeric 400 mg PO BID 11/07/18 [History] Ubidecarenone [Coenzyme Q-10] 200 mg PO DAILY 11/07/18 [History] Past Medical History HEENT History: Reports: Cataract, Impaired Vision, Macular Degeneration, Other ( See Below) Other HEENT History: wears glasses, top and bottom dentures, darci hearing aids Cardiovascular History: Reports: Heart Valve Replacement, High Cholesterol, Hypertension Respiratory History: Reports: None Gastrointestinal History: Reports: GERD Genitourinary History: Reports: BPH, Chronic Renal Insuffiency Musculoskeletal History: Reports: Neck Pain, Chronic, Osteoarthritis Other Musculoskeletal History: DDD Neurological History: Reports: None Psychiatric History: Reports: None Endocrine/Metabolic History: Reports: Diabetes, Type II Hematologic History: Reports: None Immunologic History: Reports: None Oncologic (Cancer) History: Reports: Bladder, Other (See Below) Other Oncologic History: hx skin cancer Dermatologic History: Reports: None - Past Surgical History Head Surgeries/Procedures: Reports: None HEENT Surgical History: Reports: Cataract Surgery, Tonsillectomy Cardiovascular Surgical History: Reports: Valve Replacement Respiratory Surgical History: Reports: None Male Surgical History: Reports: TURBT-Transurethral Resection of Bladder Tumor Neurological Surgical History: Reports: C-Spine Other Neurological Surgeries/Procedures: hx neck surgery Musculoskeletal Surgical History: Reports: Knee Replacement, Other (See Below) Other Musculoskeletal Surgeries/Procedures:: elbow surgery,, darci knee replacements Dermatological Surgical History: Reports: Skin Biopsy Social & Family History - Family History Family Medical History: Noncontributory - Caffeine Use Caffeine Use: Reports: Coffee Caffeine Use Comment: 2-3 cups of coffee a day - Living Situation & Occupation Living situation: Reports: Occupation: Retired H&P Review of Systems - Review of Systems: Review Of Systems: See Below General: Reports: No Symptoms. Denies: Fever, Chills, Malaise, Weakness HEENT: Reports: No Symptoms. Denies: Headaches, Sinus Congestion, Sore Throat, Vertigo Pulmonary: Reports: No Symptoms. Denies: Shortness of Breath Cardiovascular: Reports: No Symptoms. Denies: Chest Pain, Orthopnea, Edema Gastrointestinal: Reports: No Symptoms. Denies: Abdominal Pain, Black Stool, Bloody Stool, Nausea, Vomiting Genitourinary: Reports: No Symptoms. Denies: Dysuria, Frequency, Burning Musculoskeletal: Reports: No Symptoms Skin: Reports: Erythema (L forearm), Wound Psychiatric: Reports: No Symptoms Neurological: Reports: No Symptoms Hematologic/Lymphatic: Reports: No Symptoms Immunologic: Reports: No Symptoms Exam - Exam Exam: See Below - Exam General: Alert, Oriented, Cooperative HEENT: Conjunctiva Clear, Mucosa Moist & [place], Pupils Equal Lungs: Clear to Auscultation, Normal Respiratory Effort Cardiovascular: Regular Rate, Regular Rhythm GI/Abdominal Exam: Normal Bowel Sounds, Soft, Non-Tender Extremities: Normal Inspection, Normal Range of Motion, Non-Tender, No Pedal Edema Skin: Wound (L lateral forearm, small purulent drainage, no fluctuance noted. Increased warmth and swelling to L forearm. Dr Figueredo, marked erythema outline. extends to hand and proximally to mid bicep. ) Neuro Extensive - Mental Status: Alert, Oriented x3, Normal Mood/Affect Neuro Extensive - Motor, Sensory, Reflexes: CN II-XII Intact Psychiatric: Alert, Normal Affect, Normal Mood - Patient Data Result Diagrams: 11/07/18 08:32 - Problem List (1) Cellulitis of left arm SNOMED Code(s): 127198503 ICD Code: L03.114 - CELLULITIS OF LEFT UPPER LIMB Status: Acute Current Visit: Yes (2) Hypoglycemia SNOMED Code(s): 117534906 ICD Code: E16.2 - HYPOGLYCEMIA, UNSPECIFIED Status: Chronic Current Visit : No (3) BPH (benign prostatic hyperplasia) SNOMED Code(s): 472667840 ICD Code: N40.0 - BENIGN PROSTATIC HYPERPLASIA WITHOUT LOWER URINRY TRACT SYMP Status: Chronic Current Visit: No (4) Diabetes type 2, controlled SNOMED Code(s): 48408419, 177127997 ICD Code: E11.9 - TYPE 2 DIABETES MELLITUS WITHOUT COMPLICATIONS Status: Chronic Current Visit: No Qualifiers: Diabetes mellitus half-way insulin use: without termite control servicer use Diabetes mellitus complication status: with hypoglycemia Qualified Code(s): E11.649 - Type 2 diabetes mellitus with hypoglycemia without coma (5) HTN (hypertension) SNOMED Code(s): 78961953 ICD Code: I10 - ESSENTIAL (PRIMARY) HYPERTENSION Status: Chronic Current Visit: No Qualifiers: Hypertension type: essential hypertension Qualified Code(s): I10 - Essential (primary) hypertension (6) CKD (chronic kidney disease) SNOMED Code(s): 418528838 ICD Code: N18.9 - CHRONIC KIDNEY DISEASE, UNSPECIFIED Status: Chronic Current Visit: Yes Problem List Initiated/Reviewed/Updated: Yes Orders Last 24hrs: Active Orders 24 hr Category Date Time Status Patient Status [ADT] Routine ADT 11/07/18 13:50 Ordered Blood Glucose Check, Bedside [RC] TIDMEALS Care 11/07/18 13:54 Ordered Notify Provider Consults [RC] ASDIRECTED Care 11/07/18 13:54 Ordered Oxygen Therapy [RC] PRN Care 11/07/18 13:50 Ordered VTE/DVT Education [RC] PER UNIT ROUTINE Care 11/07/18 13:50 Ordered Vital Signs [RC] Q4H Care 11/07/18 13:50 Ordered Consult to Physician [CONS] Routine Cons 11/07/18 13:50 Ordered [employer] Diet [DIET] Diet 11/07/18 Lunch Ordered BASIC METABOLIC PANEL,BMP [CHEM] Routine Lab 11/07/18 13:50 Ordered CBC WITH AUTO DIFF [HEME] Routine Lab 11/07/18 13:50 Ordered CULTURE WOUND [RM] Routine Lab 11/07/18 13:56 Ordered Acetaminophen [Tylenol] Med 11/07/18 13:50 Ordered 650 mg PO Q4H PRN Insulin Aspart [NovoLOG] Med 11/07/18 17:00 Ordered See Protocol SUBCUT TIDAC Ondansetron [Zofran] Med 11/07/18 13:50 Ordered 4 mg IVPUSH Q4H PRN Pharmacy to Dose - Vancomycin Med 11/07/18 14:00 Ordered 1 dose .XX ASDIRECTED Piperacillin/Tazobactam [Piperacil-Tazobact] 3.375 gm Med 11/07/18 14:00 Ordered Sodium Chloride 0.9% [Normal Saline] 50 ml IV Q6H Sodium Chloride 0.9% [Saline Flush] Med 11/07/18 13:50 Ordered 2.5 ml FLUSH ASDIRECTED PRN Saline Lock Insert [OM.PC] Routine Oth 11/07/18 13:50 Ordered Medication Orders Acetaminophen (Tylenol) 650 mg PO Q4H PRN PRN Reason: Pain (mild 1-3) Ondansetron HCl (Zofran) 4 mg IVPUSH Q4H PRN PRN Reason: Nausea Sodium Chloride (Saline Flush) 2.5 ml FLUSH ASDIRECTED PRN PRN Reason: Keep Vein Open Assessment/Plan Comment:: This 88 year old male admitted with cellulitis to L forearm 1. Cellulitis L forearm: Leukocytosis noted, BC pending along with wound culture. Will start Vancomycin and Zosyn due to failed outpatient management. Dr Figueredo consult, I appreciate her assistance. Recheck labwork in am. Keep L arm elevated to assist with swelling. Dressing change daily with bacitracin. 2. Dm Type 2: Continues to have hypoglycemia. Last night and today it has been 40-60s. He woke up diaphoretic. Will hold PO medications and monitor BS. Novolog SSI 3. HTN: Stable, Continue Metoprolol, Amlodipine and Losartan. along with ASA. 4. CKD: Monitor, Hold Advil. VTE prophylaxis: Heparin. Dispo: 1-2 days pending improvement. <Mathew Perez - Last Filed: 11/07/18 17:40> H&P History of Present Illness - General Admit Problem/Dx: Admission Diagnosis/Problem Admission Diagnosis/Problem Cellulitis - History of Present Illness Initial Comments - Free Text/Narative: I have seen and examined the patient independently of Nathalia Nichole CNP. I have discussed the case with her. I have reviewed and agreed with the plan of treatment as outlined for this patient by her. Please see orders. Exam - Vital Signs Vital Signs: Last Vital Signs Temp 36.3 C 11/07/18 14:10 Pulse 71 11/07/18 14:10 Resp 20 11/07/18 14:10 BP 149/66 H 11/07/18 14:10 Pulse Ox 96 11/07/18 14:10 - Patient Data Lab Results Last 24 hrs: Laboratory Results - last 24 hr 11/07/18 Range/Units 08:32 WBC 17.19 H (4.0-11.0) K/uL RBC 3.50 L (4.50-5.90) M/uL Hgb 10.8 L (13.0-17.0) g/dL Hct 32.9 L (38.0-50.0) % MCV 94.0 (80.0-98.0) fL MCH 30.9 (27.0-32.0) pg MCHC 32.8 (31.0-37.0) g/dL RDW Std Deviation 52.7 (28.0-62.0) fl RDW Coeff of [place] 15 (11.0-15.0) % Plt Count 222 (150-400) K/uL MPV 10.90 (7.40-12.00) fL Neut % (Auto) 88.3 H (48.0-80.0) % Lymph % (Auto) 2.0 L (16.0-40.0) % [place] % (Auto) 9.0 (0.0-15.0) % Eos % (Auto) 0.6 (0.0-7.0) % Baso % (Auto) 0.1 (0.0-1.5) % Neut # (Auto) 15.2 H (1.4-5.7) K/uL Lymph # (Auto) 0.3 L (0.6-2.4) K/uL [place] # (Auto) 1.5 H (0.0-0.8) K/uL Eos # (Auto) 0.1 (0.0-0.7) K/uL Baso # (Auto) 0.0 (0.0-0.1) K/uL Nucleated RBC % 0.0 /100WBC Nucleated RBCs # 0 K/uL Result Diagrams: 11/07/18 08:32 Trung Results Last 24 hrs: Microbiology 11/07/18 16:19 Anaerobic Blood Culture - Final Blood - Venous - Lab Draw Orders Last 24hrs: Active Orders 24 hr Category Date Time Status Patient Status [ADT] Routine ADT 11/07/18 13:50 Active Blood Glucose Check, Bedside [RC] TIDMEALS Care 11/07/18 13:54 Active Elevate Extremity [RC] BID Care 11/07/18 15:53 Active Notify Provider Consults [RC] ASDIRECTED Care 11/07/18 13:54 Active Oxygen Therapy [RC] PRN Care 11/07/18 13:50 Active VTE/DVT Education [RC] PER UNIT ROUTINE Care 11/07/18 13:50 Active Vital Signs [RC] Q4H Care 11/07/18 13:50 Active Wound Care [RC] DAILY Care 11/07/18 15:07 Active Consult to Physician [CONS] Routine Cons 11/07/18 13:50 Active [employer] Diet [DIET] Diet 11/07/18 Lunch Active BMP [BASIC METABOLIC PANEL,BMP] [CHEM] AM Lab 11/08/18 05:11 Ordered BMP [BASIC METABOLIC PANEL,BMP] [CHEM] AM Lab 11/09/18 05:11 Ordered CBC WITH AUTO DIFF [HEME] AM Lab 11/08/18 05:11 Ordered CBC WITH AUTO DIFF [HEME] AM Lab 11/09/18 05:11 Ordered CULTURE BLOOD [BC] Stat Lab 11/07/18 16:09 Received CULTURE BLOOD [BC] Stat Lab 11/07/18 16:19 Results CULTURE WOUND [RM] Routine Lab 11/07/18 14:25 Received VANCOMYCIN TROUGH [CHEM] Timed Lab 11/10/18 14:30 Ordered Acetaminophen [Tylenol] Med 11/07/18 13:50 Active 650 mg PO Q4H PRN Aspirin [Halfprin] Med 11/08/18 09:00 Active 81 mg PO DAILY Bacitracin [Bacitracin Oint 1 GM] Med 11/07/18 15:08 Active 1 dose TOP DAILY Carboxymethylcellulose Sodium [Refresh Plus 0.5%] Med 11/07/18 21:00 Active 0 each EYEBOTH BID Finasteride [Proscar] Med 11/08/18 09:00 Active 5 mg PO DAILY Heparin Sodium Med 11/07/18 22:00 Active 5,000 units SUBCUT Q8H Insulin Aspart [NovoLOG] Med 11/07/18 17:00 Active See Protocol SUBCUT TIDAC Losartan [Cozaar] Med 11/08/18 07:30 Active 100 mg PO ACBREAKFAST Losartan [Cozaar] Med 11/07/18 21:00 Active 50 mg PO BEDTIME Metoprolol Tartrate [Lopressor] Med 11/07/18 21:00 Active 50 mg PO BID Omeprazole Med 11/07/18 15:10 Active 20 mg PO ACBREAKFAST PRN Ondansetron [Zofran] Med 11/07/18 13:50 Active 4 mg IVPUSH Q4H PRN Patient's Own Medication [Ptom] Med 11/07/18 18:00 Active 1 each EYEBOTH QPM Pharmacy to Dose - Vancomycin Med 11/07/18 14:00 Active 1 dose .XX ASDIRECTED Piperacillin/Tazobactam [Zosyn] 2.25 gm Med 11/07/18 17:00 Active Sodium Chloride 0.9% [Normal Saline] 50 ml IV Q6H Rosuvastatin [Crestor] Med 11/07/18 21:00 Active 20 mg PO BEDTIME Sodium Chloride 0.9% [Saline Flush] Med 11/07/18 13:50 Active 2.5 ml FLUSH ASDIRECTED PRN Tamsulosin [Flomax] Med 11/08/18 09:00 Active 0.4 mg PO DAILY Vancomycin 1.25 gm Med 11/07/18 15:00 Active Sodium Chloride 0.9% [Normal Saline] 250 ml IV Q24H amLODIPine [Norvasc] Med 11/08/18 09:00 Active 5 mg PO DAILY Blood Culture x2 Reflex Set [OM.PC] Stat Oth 11/07/18 15:45 Ordered Saline Lock Insert [OM.PC] Routine Oth 11/07/18 13:50 Ordered Resuscitation Status Routine Resus Stat 11/07/18 15:09 Ordered Medication Orders Acetaminophen (Tylenol) 650 mg PO Q4H PRN PRN Reason: Pain (mild 1-3) Amlodipine Besylate (Norvasc) 5 mg PO DAILY [facility] Artificial Tears (Refresh Plus 0.5%) 0 each EYEBOTH BID [facility] Aspirin (Halfprin) 81 mg PO DAILY [facility] Bacitracin (Bacitracin Oint 1 Gm) 1 dose TOP DAILY [facility] Last Admin: 11/07/18 15:31 Dose: 1 dose Finasteride (Proscar) 5 mg PO DAILY [facility] Heparin Sodium (Porcine) (Heparin Sodium) 5,000 units SUBCUT Q8H [facility] Vancomycin HCl 1.25 gm/ Sodium (Chloride) 250 mls @ 166.667 mls/hr IV Q24H [facility] Last Admin: 11/07/18 16:54 Dose: 166.667 mls/hr Piperacillin Sod/Tazobactam (Sod 2.25 gm/ Sodium Chloride) 50 mls @ 100 mls/hr IV Q6H [facility] Insulin Aspart (Novolog) 0 unit SUBCUT TIDAC JADEN; Protocol Losartan Potassium (Cozaar) 50 mg PO BEDTIME [facility] Losartan Potassium (Cozaar) 100 mg PO ACBREAKFAST [facility] Metoprolol Tartrate (Lopressor) 50 mg PO BID [facility] Omeprazole (Omeprazole) 20 mg PO ACBREAKFAST PRN PRN Reason: Heartburn Ondansetron HCl (Zofran) 4 mg IVPUSH Q4H PRN PRN Reason: Nausea Latanoprost (Opthalmic Solution) 1 each EYEBOTH QPM [facility] Rosuvastatin Calcium (Crestor) 20 mg PO BEDTIME [facility] Sodium Chloride (Saline Flush) 2.5 ml FLUSH ASDIRECTED PRN PRN Reason: Keep Vein Open Tamsulosin HCl (Flomax) 0.4 mg PO DAILY [facility] Vancomycin HCl (Pharmacy To Dose - Vancomycin) 1 dose .XX ASDIRECTED [facility]
[2018-11-07] MEDS ORDERED: Piperacillin/Tazobactam 3.375 GM in Sodium Chloride 0.9% 50 ML IV SCH (14:00)
[2018-11-07] MEDS ORDERED: Omeprazole 20 MG Cap.CR PO PRN (15:10)
[2018-11-07] MEDS: Bacitracin Oint 1 GM U/D Packet TOP SCH (15:31)
--- NOTE | 2018-11-07 15:45 | PCM.CONS ---
H&P History of Present Illness - General Date of Service: 11/07/18 Admit Problem/Dx: Admission Diagnosis/Problem Admission Diagnosis/Problem Cellulitis Source of Information: Patient History Limitations: Reports: No Limitations - History of Present Illness Initial Comments - Free Text/Narative: Patient is an 88-year-old male who was admitted several weeks ago after a hypoglycemic episode resulting in a fall. I repaired his left elbow and forearm laceration in the emergency room at that time. He followed up with me in clinic. His wound has healed well other than a small patch along the distal aspect of the incision. This is been closing by secondary intention. Over the weekend he noticed some redness, swelling, and warmth spreading from the wound down his forearm. I saw him in clinic on Tuesday and placed him on Keflex. I told him to call should the redness continued to spread. Overnight the redness has now extended down to his hand and up to his proximal arm. He denies any fevers chills nausea vomiting shortness of breath or chest pain. He complains of a small amount of pain in the left lower arm. presented to his primary care provider's office who contacted me. - Related Data Allergies/Adverse Reactions: Allergies Allergy/AdvReac Type Severity Reaction Status Date / Time No Known Allergies Allergy Verified 10/15/18 22:08 Home Medications: Home Meds Aspirin [Adult Aspirin] 81 mg PO DAILY 10/09/18 [History] Cholecalciferol (Vitamin D3) [Vitamin D3] 2,000 units PO DAILY 10/09/18 [History ] Cyanocobalamin (Vitamin B12) [Vitamin B12] 1,000 mcg PO DAILY 10/09/18 [History] Finasteride [Proscar] 5 mg PO DAILY 10/09/18 [History] Ibuprofen [Advil] 600 tab PO BID 10/09/18 [History] Latanoprost/Pf [Latanoprost 0.005% Eye Drop] 1 drop EYEBOTH QPM 10/09/18 [ History] Losartan Potassium 50 mg PO BEDTIME 10/09/18 [History] Losartan Potassium 100 mg PO ACBREAKFAST 10/09/18 [History] Metoprolol Tartrate 50 mg PO BID 10/09/18 [History] Omeprazole Magnesium [Prilosec Otc] 20 mg PO ACBREAKFAST PRN 10/09/18 [History] Pioglitazone HCl 30 mg PO DAILY 10/09/18 [History] Rosuvastatin Calcium 20 mg PO BEDTIME 10/09/18 [History] Tamsulosin [Flomax] 0.4 mg PO DAILY 10/09/18 [History] Vit C/Juan J Ac/Lut/Copper/ZnOx [Preservision Lutein Softgel] 1 cap PO BID [History] Vitamin B Complex [Super B-50 Complex] 1 tab PO DAILY 10/09/18 [History] amLODIPine Besylate [Amlodipine Besylate] 5 mg PO DAILY 10/09/18 [History] metFORMIN HCl [Fortamet] 500 mg PO BIDMEALS 10/09/18 [History] B-Complex with Vitamin C [Super B Complex-Vitamin C] 1 tab PO DAILY 11/07/18 [ History] Carboxymethylcellulose Sodium [Refresh Plus 0.5%] 2 drop EYEBOTH BID 11/07/18 [ History] Cephalexin [Keflex] 500 mg PO QID 11/07/18 [History] Turmeric 400 mg PO BID 11/07/18 [History] Ubidecarenone [Coenzyme Q-10] 200 mg PO DAILY 11/07/18 [History] Past Medical History HEENT History: Reports: Cataract, Impaired Vision, Macular Degeneration, Other ( See Below) Other HEENT History: wears glasses, top and bottom dentures, darci hearing aids Cardiovascular History: Reports: Heart Valve Replacement, High Cholesterol, Hypertension Respiratory History: Reports: None Gastrointestinal History: Reports: GERD Genitourinary History: Reports: BPH Other Genitourinary History: CKD, bladder cancer Musculoskeletal History: Reports: Neck Pain, Chronic, Osteoarthritis Other Musculoskeletal History: DDD Neurological History: Reports: None Psychiatric History: Reports: None Endocrine/Metabolic History: Reports: Diabetes, Type II Hematologic History: Reports: None Immunologic History: Reports: None Oncologic (Cancer) History: Reports: Bladder, Other (See Below) Other Oncologic History: hx skin cancer Dermatologic History: Reports: None - Infectious Disease History Infectious Disease History: Reports: Chicken Pox, Measles, Shingles - Past Surgical History Head Surgeries/Procedures: Reports: None HEENT Surgical History: Reports: Cataract Surgery, Tonsillectomy Cardiovascular Surgical History: Reports: Valve Replacement Respiratory Surgical History: Reports: None Male Surgical History: Reports: TURBT-Transurethral Resection of Bladder Tumor Neurological Surgical History: Reports: C-Spine Other Neurological Surgeries/Procedures: hx neck surgery Musculoskeletal Surgical History: Reports: Knee Replacement, Other (See Below) Other Musculoskeletal Surgeries/Procedures:: elbow surgery,, darci knee replacements Dermatological Surgical History: Reports: Skin Biopsy Social & Family History - Family History Family Medical History: Noncontributory - Tobacco Use Smoking Status *Q: Never Smoker Second Hand Smoke Exposure: No - Caffeine Use Caffeine Use: Reports: Coffee Caffeine Use Comment: drinks coffee every day - Recreational Drug Use Recreational Drug Use: No H&P Review of Systems - Review of Systems: Review Of Systems: ROS reveals no pertinent complaints other than HPI. Exam - Exam Exam: See Below - Vital Signs Vital Signs: Last Vital Signs Temp 36.3 C 11/07/18 14:10 Pulse 71 11/07/18 14:10 Resp 20 11/07/18 14:10 BP 149/66 H 11/07/18 14:10 Pulse Ox 96 11/07/18 14:10 Weight: 90.628 kg - Exam General: Alert, Oriented, Cooperative HEENT: Conjunctiva Clear, Mucosa Moist & [place], Posterior Pharynx Clear Lungs: Normal Respiratory Effort Cardiovascular: Regular Rate Extremities: Increased Warmth (left hand, forearm and spreading up the upper arm ), Redness, Other (swelling left arm ). No: Slow Capillary Refill, Joint Swelling, Arm Pain, Limited Range of Motion - Patient Data Lab Results Last 24 hrs: Laboratory Results - last 24 hr 11/07/18 Range/Units 08:32 WBC 17.19 H (4.0-11.0) K/uL RBC 3.50 L (4.50-5.90) M/uL Hgb 10.8 L (13.0-17.0) g/dL Hct 32.9 L (38.0-50.0) % MCV 94.0 (80.0-98.0) fL MCH 30.9 (27.0-32.0) pg MCHC 32.8 (31.0-37.0) g/dL RDW Std Deviation 52.7 (28.0-62.0) fl RDW Coeff of [place] 15 (11.0-15.0) % Plt Count 222 (150-400) K/uL MPV 10.90 (7.40-12.00) fL Neut % (Auto) 88.3 H (48.0-80.0) % Lymph % (Auto) 2.0 L (16.0-40.0) % [place] % (Auto) 9.0 (0.0-15.0) % Eos % (Auto) 0.6 (0.0-7.0) % Baso % (Auto) 0.1 (0.0-1.5) % Neut # (Auto) 15.2 H (1.4-5.7) K/uL Lymph # (Auto) 0.3 L (0.6-2.4) K/uL [place] # (Auto) 1.5 H (0.0-0.8) K/uL Eos # (Auto) 0.1 (0.0-0.7) K/uL Baso # (Auto) 0.0 (0.0-0.1) K/uL Nucleated RBC % 0.0 /100WBC Nucleated RBCs # 0 K/uL Result Diagrams: 11/07/18 08:32 Consult PN Assessment/Plan Procedures: Procedures ALANINE AMINO (ALT) (SGPT) (12/05/15) ASSAY OF PSA TOTAL (05/22/18) ASSAY OF TROPONIN QUANT (10/15/18) CARDIAC REHAB/MONITOR (05/12/16) CARPAL TUNNEL SURGERY (10/11/18) CHEST X-RAY 2VW FRONTAL&LATL (09/14/16) CMPLX RPR S/A/L 2.6-7.5 CM (10/15/18) COMPLETE CBC AUTOMATED (10/15/18) COMPLETE CBC W/AUTO DIFF WBC (10/15/18) COMPREHEN METABOLIC PANEL (10/15/18) CT HEAD/BRAIN W/O DYE (10/15/18) CT NECK SPINE W/O DYE (10/15/18) CT UPPER EXTREMITY W/O DYE (10/15/18) CYSTOSCOPY (05/19/17) DESTRUCT PREMALG LESION (02/25/14) ELECTROCARDIOGRAM TRACING (10/15/18) EMERGENCY DEPT VISIT (10/15/18) EMERGENCY DEPT VISIT (03/21/14) EXC TR-EXT MAL+IGNACIO 3.1-4 CM (02/25/14) EXTRACRANIAL BILAT STUDY (06/04/15) GLUCOSE BLOOD TEST (10/15/18) GLYCOSYLATED HEMOGLOBIN TEST (10/15/18) HOT OR COLD PACKS THERAPY (01/24/17) INJ TENDON SHEATH/LIGAMENT (03/25/14) INJECT TRIGGER POINTS 3/> (12/18/15) INSERT TEMP BLADDER CATH (03/28/14) LIPID PANEL (06/02/18) MANUAL THERAPY 1/> REGIONS (07/29/16) MASSAGE THERAPY (01/24/17) METABOLIC PANEL TOTAL CA (10/15/18) MRI CHEST SPINE W/O DYE (12/26/15) MRI NECK SPINE W/O DYE (12/26/15) MUSC TEST DONE W/N TEST COMP (07/30/16) NRV CNDJ TEST 9-10 STUDIES (07/30/16) OFFICE/OUTPATIENT VISIT EST (03/21/17) OFFICE/OUTPATIENT VISIT EST (05/14/14) OFFICE/OUTPATIENT VISIT EST (03/28/14) OFFICE/OUTPATIENT VISIT EST (03/25/14) PPSV23 VACC 2 YRS+ SUBQ/IM (12/05/15) PROTHROMBIN TIME (10/15/18) PT EVAL LOW COMPLEX 20 MIN (12/28/16) PT EVALUATION (05/31/16) ROUTINE VENIPUNCTURE (10/15/18) THER/PROPH/DIAG INJ SC/IM (03/21/14) THER/PROPH/DIAG IV INF ADDON (10/15/18) THER/PROPH/DIAG IV INF INIT (10/15/18) THERAPEUTIC EXERCISES (01/24/17) TTE W/DOPPLER COMPLETE (04/25/17) TX/PRO/DX INJ SAME DRUG RADIO PERFORMER (10/15/18) ULTRASOUND THERAPY (01/24/17) UR ALBUMIN SEMIQUANTITATIVE (05/01/18) URINALYSIS AUTO W/O SCOPE (10/15/18) URINALYSIS AUTO W/SCOPE (05/22/18) URINALYSIS NONAUTO W/SCOPE (05/14/14) US EXAM ABDO BACK WALL PAZ (09/09/14) US URINE CAPACITY MEASURE (04/09/14) VIT D 1 25-DIHYDROXY (09/14/16) X-RAY EXAM CHEST 1 VIEW (10/15/18) X-RAY EXAM NECK SPINE 2-3 VW (12/05/15) X-RAY EXAM OF ELBOW (10/15/18) X-RAY EXAM OF SPINE 1 VIEW (11/02/16) (1) Cellulitis of left arm SNOMED Code(s): 127124330 Code(s): L03.114 - CELLULITIS OF LEFT UPPER LIMB Current Visit: Yes Problem List Initiated/Reviewed/Updated: Yes Plan: The patient failed outpatient therapy with Keflex. A wound culture was taken upon admission today. His white blood cell count is 17,000 with a left shift. At this point in time there is no evidence of any fluctuance. The wound itself appears well healing with no evidence of purulent drainage. Likely the break in his skin allowed for bacteria to cause a cellulitis. Given his age and diabetes is admitted to medicine service. They will start broad-spectrum antibiotics and get blood cultures as well. We'll continue to follow along with the patient. If his white blood cell count does not improve I would get a CT of the arm to rule out any osteomyelitis or drainable fluid collections.
[2018-11-07] MEDS: Piperacillin/Tazobactam 2.25 GM in Sodium Chloride 0.9% 50 ML IV SCH ×2 (18:27→23:06)
[2018-11-07] MEDS: LATANOPROST OPTHALMIC EYEBOTH SCH (18:28)
[2018-11-07] MEDS: Insulin Aspart 100 Units/ML 3 ML Pen SUBCUT SCH (18:38)
[2018-11-07] MEDS: Heparin Sodium 5,000 Units/ML Vial SUBCUT SCH (21:06)
[2018-11-07] MEDS: Rosuvastatin 10 MG Tab PO SCH (21:07)
[2018-11-07] MEDS: Carboxymethylcellulose Sodium 0.5% Ophth Soln 0.4 ML UD Box of 30 EYEBOTH SCH (21:12)
[2018-11-07] MEDS: Metoprolol Tartrate 50 MG Tab PO SCH (21:19)
[2018-11-07] MEDS: Losartan 50 MG Tab PO SCH (21:20)
[2018-11-08] MEDS: Piperacillin/Tazobactam 2.25 GM in Sodium Chloride 0.9% 50 ML IV SCH ×4 (05:26→23:28)
[2018-11-08] MEDS: Heparin Sodium 5,000 Units/ML Vial SUBCUT SCH ×3 (05:27→23:28)
[2018-11-08] MEDS: Insulin Aspart 100 Units/ML 3 ML Pen SUBCUT SCH ×3 (06:56→18:51)
[2018-11-08] MEDS: Losartan 50 MG Tab PO SCH ×2 (07:19→20:56)
[2018-11-08] MEDS: Acetaminophen 325 MG Tab PO PRN ×3 (07:22→23:27)
--- NOTE | 2018-11-08 07:53 | PCM.PN ---
<Nathalia Nichole M - Last Filed: 11/08/18 09:39> - General Info Date of Service: 11/08/18 Admission Dx/Problem (Free Text): Admission Diagnosis/Problem Admission Diagnosis/Problem Cellulitis Subjective Update: Feeling good today. No feelings of hypoglycemia. No chest pain or SOB. Feels like arm is improving and showing more wrinkles. Pain controlled. Functional Status: Reports: Pain Controlled, Tolerating Diet, Ambulating, Urinating - Review of Systems General: Reports: No Symptoms. Denies: Fever, Weakness, Fatigue HEENT: Reports: No Symptoms. Denies: Headaches, Sore Throat, Visual Changes Pulmonary: Reports: No Symptoms. Denies: Shortness of Breath Cardiovascular: Reports: No Symptoms. Denies: Chest Pain Gastrointestinal: Reports: No Symptoms. Denies: Abdominal Pain, Nausea, Vomiting Genitourinary: Reports: No Symptoms. Denies: Dysuria, Frequency Musculoskeletal: Reports: No Symptoms Skin: Reports: Other (redness and swelling improving) Neurological: Reports: No Symptoms Psychiatric: Reports: No Symptoms - Patient Data Vitals - Most Recent: Last Vital Signs Temp 98 F 11/08/18 04:00 Pulse 73 11/08/18 04:00 Resp 18 11/08/18 04:00 BP 124/49 L 11/08/18 07:19 Pulse Ox 94 L 11/08/18 04:00 Weight - Most Recent: 90.628 kg I&O - Last 24 Hours: Intake & Output 11/07/18 11/08/18 11/08/18 22:59 06:59 14:59 Intake Total 300 750 Output Total 140 1885 Balance 160 -1135 Lab Results Last 24 Hours: Laboratory Results - last 24 hr 11/07/18 11/07/18 11/08/18 Range/Units 08:32 16:46 04:43 WBC 17.19 H 12.63 H (4.0-11.0) K/uL RBC 3.50 L 3.18 L (4.50-5.90) M/uL Hgb 10.8 L 9.7 L (13.0-17.0) g/dL Hct 32.9 L 29.6 L (38.0-50.0) % MCV 94.0 93.1 (80.0-98.0) fL MCH 30.9 30.5 (27.0-32.0) pg MCHC 32.8 32.8 (31.0-37.0) g/dL RDW Std Deviation 52.7 52.1 (28.0-62.0) fl RDW Coeff of [place] 15 15 (11.0-15.0) % Plt Count 222 193 (150-400) K/uL MPV 10.90 10.30 (7.40-12.00) fL Neut % (Auto) 88.3 H 78.9 (48.0-80.0) % Lymph % (Auto) 2.0 L 7.2 L (16.0-40.0) % [place] % (Auto) 9.0 11.0 (0.0-15.0) % Eos % (Auto) 0.6 2.7 (0.0-7.0) % Baso % (Auto) 0.1 0.2 (0.0-1.5) % Neut # (Auto) 15.2 H 10.0 H (1.4-5.7) K/uL Lymph # (Auto) 0.3 L 0.9 (0.6-2.4) K/uL [place] # (Auto) 1.5 H 1.4 H (0.0-0.8) K/uL Eos # (Auto) 0.1 0.3 (0.0-0.7) K/uL Baso # (Auto) 0.0 0.0 (0.0-0.1) K/uL Nucleated RBC % 0.0 0.0 /100WBC Nucleated RBCs # 0 0 K/uL Sodium (136-148) mmol/L Potassium (3.5-5.1) mmol/L Chloride (98-107) mmol/L Carbon Dioxide (21.0-32.0) mmol/L BUN (7.0-18.0) mg/dL Creatinine (0.8-1.3) mg/dL Est Cr Clr Drug Dosing mL/min Estimated GFR (MDRD) ml/min Glucose (74-106) mg/dL POC Glucose 102 (60-110) mg/dL Calcium (8.5-10.1) mg/dL 11/08/18 11/08/18 Range/Units 04:43 06:49 WBC (4.0-11.0) K/uL RBC (4.50-5.90) M/uL Hgb (13.0-17.0) g/dL Hct (38.0-50.0) % MCV (80.0-98.0) fL MCH (27.0-32.0) pg MCHC (31.0-37.0) g/dL RDW Std Deviation (28.0-62.0) fl RDW Coeff of [place] (11.0-15.0) % Plt Count (150-400) K/uL MPV (7.40-12.00) fL Neut % (Auto) (48.0-80.0) % Lymph % (Auto) (16.0-40.0) % [place] % (Auto) (0.0-15.0) % Eos % (Auto) (0.0-7.0) % Baso % (Auto) (0.0-1.5) % Neut # (Auto) (1.4-5.7) K/uL Lymph # (Auto) (0.6-2.4) K/uL [place] # (Auto) (0.0-0.8) K/uL Eos # (Auto) (0.0-0.7) K/uL Baso # (Auto) (0.0-0.1) K/uL Nucleated RBC % /100WBC Nucleated RBCs # K/uL Sodium 140 (136-148) mmol/L Potassium 4.4 (3.5-5.1) mmol/L Chloride 106 (98-107) mmol/L Carbon Dioxide 22.9 (21.0-32.0) mmol/L BUN 37 H (7.0-18.0) mg/dL Creatinine 1.6 H (0.8-1.3) mg/dL Est Cr Clr Drug Dosing 32.06 mL/min Estimated GFR (MDRD) 41.2 ml/min Glucose 67 L (74-106) mg/dL POC Glucose 84 (60-110) mg/dL Calcium 8.8 (8.5-10.1) mg/dL Trung Results Last 24 Hours: Microbiology 11/07/18 16:19 Anaerobic Blood Culture - Final Blood - Venous - Lab Draw Med Orders - Current: Current Medications Acetaminophen (Tylenol) 650 mg PO Q4H PRN PRN Reason: Pain (mild 1-3) Last Admin: 11/08/18 07:22 Dose: 650 mg Amlodipine Besylate (Norvasc) 5 mg PO DAILY [facility] Artificial Tears (Refresh Plus 0.5%) 0 each EYEBOTH BID [facility] Last Admin: 11/07/18 21:12 Dose: Not Given Aspirin (Halfprin) 81 mg PO DAILY [facility] Bacitracin (Bacitracin Oint 1 Gm) 1 dose TOP DAILY [facility] Last Admin: 11/07/18 15:31 Dose: 1 dose Finasteride (Proscar) 5 mg PO DAILY [facility] Heparin Sodium (Porcine) (Heparin Sodium) 5,000 units SUBCUT Q8H [facility] Last Admin: 11/08/18 05:27 Dose: 5,000 units Vancomycin HCl 1.25 gm/ Sodium (Chloride) 250 mls @ 166.667 mls/hr IV Q24H [facility] Last Admin: 11/07/18 16:54 Dose: 166.667 mls/hr Piperacillin Sod/Tazobactam (Sod 2.25 gm/ Sodium Chloride) 50 mls @ 100 mls/hr IV Q6H [facility] Last Admin: 11/08/18 05:26 Dose: 100 mls/hr Insulin Aspart (Novolog) 0 unit SUBCUT TIDAC [facility]; Protocol Last Admin: 11/08/18 06:56 Dose: Not Given Losartan Potassium (Cozaar) 50 mg PO BEDTIME [facility] Last Admin: 11/07/18 21:20 Dose: 50 mg Losartan Potassium (Cozaar) 100 mg PO ACBREAKFAST [facility] Last Admin: 11/08/18 07:19 Dose: 100 mg Metoprolol Tartrate (Lopressor) 50 mg PO BID [facility] Last Admin: 11/07/18 21:19 Dose: 50 mg Omeprazole (Omeprazole) 20 mg PO ACBREAKFAST PRN PRN Reason: Heartburn Ondansetron HCl (Zofran) 4 mg IVPUSH Q4H PRN PRN Reason: Nausea Latanoprost (Opthalmic Solution) 1 each EYEBOTH QPM [facility] Last Admin: 11/07/18 18:28 Dose: 1 each Rosuvastatin Calcium (Crestor) 20 mg PO BEDTIME [facility] Last Admin: 11/07/18 21:07 Dose: 20 mg Sodium Chloride (Saline Flush) 2.5 ml FLUSH ASDIRECTED PRN PRN Reason: Keep Vein Open Tamsulosin HCl (Flomax) 0.4 mg PO DAILY [facility] Vancomycin HCl (Pharmacy To Dose - Vancomycin) 1 dose .XX ASDIRECTED [facility] - Exam General: Alert, Oriented, Cooperative, No Acute Distress Lungs: Clear to Auscultation, Normal Respiratory Effort Cardiovascular: Regular Rate, Regular Rhythm GI/Abdominal Exam: Normal Bowel Sounds, Soft, Non-Tender Extremities: Normal Inspection, Normal Range of Motion, Non-Tender, No Pedal Edema Wound/Incisions: Healing Well, Erythema Improving (circumferentially, erythema is improving. Less swelling today. Again, no fluctuance is noted. Scant drainage from wound on elbow. Continue dressing changes.) - Problem List & Annotations (1) Cellulitis of left arm SNOMED Code(s): 019051453 Code(s): L03.114 - CELLULITIS OF LEFT UPPER LIMB Status: Acute Current Visit: Yes (2) Hypoglycemia SNOMED Code(s): 500440471 Code(s): E16.2 - HYPOGLYCEMIA, UNSPECIFIED Status: Chronic Current Visit : No (3) BPH (benign prostatic hyperplasia) SNOMED Code(s): 701734838 Code(s): N40.0 - BENIGN PROSTATIC HYPERPLASIA WITHOUT LOWER URINRY TRACT SYMP Status: Chronic Current Visit: No (4) Diabetes type 2, controlled SNOMED Code(s): 13109127, 191590266 Code(s): E11.9 - TYPE 2 DIABETES MELLITUS WITHOUT COMPLICATIONS Status: Chronic Current Visit: No Qualifiers: 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: without marine oil terminal superintendent use Diabetes mellitus complication status: with hypoglycemia Qualified Code(s): E11.649 - Type 2 diabetes mellitus with hypoglycemia without coma (5) HTN (hypertension) SNOMED Code(s): 19018423 Code(s): I10 - ESSENTIAL (PRIMARY) HYPERTENSION Status: Chronic Current Visit: No Qualifiers: Hypertension type: essential hypertension Qualified Code(s): I10 - Essential (primary) hypertension (6) CKD (chronic kidney disease) SNOMED Code(s): 054446890 Code(s): N18.9 - CHRONIC KIDNEY DISEASE, UNSPECIFIED Status: Chronic Current Visit: Yes - Problem List Review Problem List Initiated/Reviewed/Updated: Yes - My Orders Last 24 Hours: My Active Orders 11/07/18 13:50 Patient Status [ADT] Routine Oxygen Therapy [RC] PRN VTE/DVT Education [RC] PER UNIT ROUTINE Vital Signs [RC] Q4H Consult to Physician [CONS] Routine Acetaminophen [Tylenol] 650 mg PO Q4H PRN Ondansetron [Zofran] 4 mg IVPUSH Q4H PRN Sodium Chloride 0.9% [Saline Flush] 2.5 ml FLUSH ASDIRECTED PRN Saline Lock Insert [OM.PC] Routine 11/07/18 13:54 Blood Glucose Check, Bedside [RC] TIDMEALS Notify Provider Consults [RC] ASDIRECTED 11/07/18 14:00 Pharmacy to Dose - Vancomycin 1 dose .XX ASDIRECTED 11/07/18 14:25 CULTURE WOUND [RM] Routine 11/07/18 15:00 Vancomycin 1.25 gm Sodium Chloride 0.9% [Normal Saline] 250 ml IV Q24H 11/07/18 15:07 Wound Care [RC] DAILY 11/07/18 15:08 Bacitracin [Bacitracin Oint 1 GM] 1 dose TOP DAILY 11/07/18 15:09 Resuscitation Status Routine 11/07/18 15:10 Omeprazole 20 mg PO ACBREAKFAST PRN 11/07/18 15:45 Blood Culture x2 Reflex Set [OM.PC] Stat 11/07/18 15:53 Elevate Extremity [RC] BID 11/07/18 16:09 CULTURE BLOOD [BC] Stat 11/07/18 16:19 CULTURE BLOOD [BC] Stat 11/07/18 17:00 Insulin Aspart [NovoLOG] See Protocol SUBCUT TIDAC Piperacillin/Tazobactam [Zosyn] 2.25 gm Sodium Chloride 0.9% [Normal Saline] 50 ml IV Q6H 11/07/18 18:00 Patient's Own Medication [Ptom] 1 each EYEBOTH QPM 11/07/18 21:00 Carboxymethylcellulose Sodium [Refresh Plus 0.5%] 0 each EYEBOTH BID Losartan [Cozaar] 50 mg PO BEDTIME Metoprolol Tartrate [Lopressor] 50 mg PO BID Rosuvastatin [Crestor] 20 mg PO BEDTIME 11/07/18 22:00 Heparin Sodium 5,000 units SUBCUT Q8H 11/07/18 Lunch [employer] Diet [DIET] 11/08/18 07:30 Losartan [Cozaar] 100 mg PO ACBREAKFAST 11/08/18 09:00 Aspirin [Halfprin] 81 mg PO DAILY Finasteride [Proscar] 5 mg PO DAILY Tamsulosin [Flomax] 0.4 mg PO DAILY amLODIPine [Norvasc] 5 mg PO DAILY 11/09/18 05:11 BMP [BASIC METABOLIC PANEL,BMP] [CHEM] AM CBC WITH AUTO DIFF [HEME] AM - Plan Plan:: This 88 year old male admitted with cellulitis to L forearm 1. Cellulitis L forearm: Leukocytosis improving, BC pending along with wound culture are pending. Awaiting these to direct antibiotic treatment plan. Continue Vancomycin and Zosyn. Dr Figeuredo consult, I appreciate her assistance. Recheck labwork in am. Keep L arm elevated to assist with swelling. Dressing change daily with bacitracin. 2. Dm Type 2: BS 67 this morning, no feelings of hypoglycemia. Ate breakfast. Will hold PO medications and monitor BS. Novolog SSI 3. HTN: Stable, Continue Metoprolol, Amlodipine and Losartan. along with ASA. 4. CKD: Monitor, Hold Advil. VTE prophylaxis: Heparin. Dispo: 1-2 days pending improvement. <Mathew Perez - Last Filed: 11/08/18 12:44> - General Info Admission Dx/Problem (Free Text): I have seen and examined the patient independently of Nathalia Nichole CNP. I have discussed the case with her. I have reviewed and agreed with the plan of treatment as outlined for this patient by her. Please see orders. - Patient Data Vitals - Most Recent: Last Vital Signs Temp 35.9 C 11/08/18 12:00 Pulse 65 11/08/18 12:00 Resp 18 11/08/18 12:00 BP 105/54 L 11/08/18 12:00 Pulse Ox 97 11/08/18 12:00 I&O - Last 24 Hours: Intake & Output 11/07/18 11/08/18 11/08/18 22:59 06:59 14:59 Intake Total 300 750 Output Total 140 1885 Balance 160 -1135 Lab Results Last 24 Hours: Laboratory Results - last 24 hr 11/07/18 11/07/18 11/08/18 Range/Units 08:32 16:46 04:43 WBC 17.19 H 12.63 H (4.0-11.0) K/uL RBC 3.50 L 3.18 L (4.50-5.90) M/uL Hgb 10.8 L 9.7 L (13.0-17.0) g/dL Hct 32.9 L 29.6 L (38.0-50.0) % MCV 94.0 93.1 (80.0-98.0) fL MCH 30.9 30.5 (27.0-32.0) pg MCHC 32.8 32.8 (31.0-37.0) g/dL RDW Std Deviation 52.7 52.1 (28.0-62.0) fl RDW Coeff of [place] 15 15 (11.0-15.0) % Plt Count 222 193 (150-400) K/uL MPV 10.90 10.30 (7.40-12.00) fL Neut % (Auto) 88.3 H 78.9 (48.0-80.0) % Lymph % (Auto) 2.0 L 7.2 L (16.0-40.0) % [place] % (Auto) 9.0 11.0 (0.0-15.0) % Eos % (Auto) 0.6 2.7 (0.0-7.0) % Baso % (Auto) 0.1 0.2 (0.0-1.5) % Neut # (Auto) 15.2 H 10.0 H (1.4-5.7) K/uL Lymph # (Auto) 0.3 L 0.9 (0.6-2.4) K/uL [place] # (Auto) 1.5 H 1.4 H (0.0-0.8) K/uL Eos # (Auto) 0.1 0.3 (0.0-0.7) K/uL Baso # (Auto) 0.0 0.0 (0.0-0.1) K/uL Nucleated RBC % 0.0 0.0 /100WBC Nucleated RBCs # 0 0 K/uL Sodium (136-148) mmol/L Potassium (3.5-5.1) mmol/L Chloride (98-107) mmol/L Carbon Dioxide (21.0-32.0) mmol/L BUN (7.0-18.0) mg/dL Creatinine (0.8-1.3) mg/dL Est Cr Clr Drug Dosing mL/min Estimated GFR (MDRD) ml/min Glucose (74-106) mg/dL POC Glucose 102 (60-110) mg/dL Calcium (8.5-10.1) mg/dL 11/08/18 11/08/18 11/08/18 Range/Units 04:43 06:49 11:58 WBC (4.0-11.0) K/uL RBC (4.50-5.90) M/uL Hgb (13.0-17.0) g/dL Hct (38.0-50.0) % MCV (80.0-98.0) fL MCH (27.0-32.0) pg MCHC (31.0-37.0) g/dL RDW Std Deviation (28.0-62.0) fl RDW Coeff of [place] (11.0-15.0) % Plt Count (150-400) K/uL MPV (7.40-12.00) fL Neut % (Auto) (48.0-80.0) % Lymph % (Auto) (16.0-40.0) % [place] % (Auto) (0.0-15.0) % Eos % (Auto) (0.0-7.0) % Baso % (Auto) (0.0-1.5) % Neut # (Auto) (1.4-5.7) K/uL Lymph # (Auto) (0.6-2.4) K/uL [place] # (Auto) (0.0-0.8) K/uL Eos # (Auto) (0.0-0.7) K/uL Baso # (Auto) (0.0-0.1) K/uL Nucleated RBC % /100WBC Nucleated RBCs # K/uL Sodium 140 (136-148) mmol/L Potassium 4.4 (3.5-5.1) mmol/L Chloride 106 (98-107) mmol/L Carbon Dioxide 22.9 (21.0-32.0) mmol/L BUN 37 H (7.0-18.0) mg/dL Creatinine 1.6 H (0.8-1.3) mg/dL Est Cr Clr Drug Dosing 32.06 mL/min Estimated GFR (MDRD) 41.2 ml/min Glucose 67 L (74-106) mg/dL POC Glucose 84 139 H (60-110) mg/dL Calcium 8.8 (8.5-10.1) mg/dL Trung Results Last 24 Hours: Microbiology 11/07/18 16:19 Anaerobic Blood Culture - Final Blood - Venous - Lab Draw Med Orders - Current: Current Medications Acetaminophen (Tylenol) 650 mg PO Q4H PRN PRN Reason: Pain (mild 1-3) Last Admin: 11/08/18 07:22 Dose: 650 mg Amlodipine Besylate (Norvasc) 5 mg PO DAILY [facility] Last Admin: 11/08/18 09:04 Dose: 5 mg Artificial Tears (Refresh Plus 0.5%) 0 each EYEBOTH BID [facility] Last Admin: 11/08/18 09:05 Dose: 2 drop Aspirin (Halfprin) 81 mg PO DAILY [facility] Last Admin: 11/08/18 09:04 Dose: 81 mg Bacitracin (Bacitracin Oint 1 Gm) 1 dose TOP DAILY [facility] Last Admin: 11/08/18 09:07 Dose: 1 dose Finasteride (Proscar) 5 mg PO DAILY [facility] Last Admin: 11/08/18 09:03 Dose: 5 mg Heparin Sodium (Porcine) (Heparin Sodium) 5,000 units SUBCUT Q8H [facility] Last Admin: 11/08/18 05:27 Dose: 5,000 units Vancomycin HCl 1.25 gm/ Sodium (Chloride) 250 mls @ 166.667 mls/hr IV Q24H [facility] Last Admin: 11/07/18 16:54 Dose: 166.667 mls/hr Piperacillin Sod/Tazobactam (Sod 2.25 gm/ Sodium Chloride) 50 mls @ 100 mls/hr IV Q6H [facility] Last Admin: 11/08/18 11:42 Dose: 100 mls/hr Insulin Aspart (Novolog) 0 unit SUBCUT TIDAC [facility]; Protocol Last Admin: 11/08/18 12:41 Dose: Not Given Losartan Potassium (Cozaar) 50 mg PO BEDTIME [facility] Last Admin: 11/07/18 21:20 Dose: 50 mg Losartan Potassium (Cozaar) 100 mg PO ACBREAKFAST [facility] Last Admin: 11/08/18 07:19 Dose: 100 mg Metoprolol Tartrate (Lopressor) 50 mg PO BID [facility] Last Admin: 11/08/18 09:06 Dose: 50 mg Omeprazole (Omeprazole) 20 mg PO ACBREAKFAST PRN PRN Reason: Heartburn Ondansetron HCl (Zofran) 4 mg IVPUSH Q4H PRN PRN Reason: Nausea Latanoprost (Opthalmic Solution) 1 each EYEBOTH QPM [facility] Last Admin: 11/07/18 18:28 Dose: 1 each Rosuvastatin Calcium (Crestor) 20 mg PO BEDTIME [facility] Last Admin: 11/07/18 21:07 Dose: 20 mg Sodium Chloride (Saline Flush) 2.5 ml FLUSH ASDIRECTED PRN PRN Reason: Keep Vein Open Tamsulosin HCl (Flomax) 0.4 mg PO DAILY [facility] Last Admin: 11/08/18 09:03 Dose: 0.4 mg Vancomycin HCl (Pharmacy To Dose - Vancomycin) 1 dose .XX ASDIRECTED [facility] - My Orders Last 24 Hours: My Active Orders 11/10/18 14:30 VANCOMYCIN TROUGH [CHEM] Timed
[2018-11-08] MEDS: Finasteride 5 MG Tab PO SCH (09:03)
[2018-11-08] MEDS: Tamsulosin 0.4 MG Cap.ER PO SCH (09:03)
[2018-11-08] MEDS: Aspirin 81 MG Tab.EC PO SCH (09:04)
[2018-11-08] MEDS: amLODIPine 5 MG Tab PO SCH (09:04)
[2018-11-08] MEDS: Carboxymethylcellulose Sodium 0.5% Ophth Soln 0.4 ML UD Box of 30 EYEBOTH SCH ×2 (09:05→20:58)
[2018-11-08] MEDS: Metoprolol Tartrate 50 MG Tab PO SCH ×2 (09:06→20:57)
--- NOTE | 2018-11-08 09:06 | PCM.CONS ---
H&P History of Present Illness - General Date of Service: 11/08/18 Admit Problem/Dx: Admission Diagnosis/Problem Admission Diagnosis/Problem Cellulitis Source of Information: Patient History Limitations: Reports: No Limitations - History of Present Illness Initial Comments - Free Text/Narative: No acute changes overnight. Arm appears less swollen and red this morning. WBC improving. Afebrile. - Related Data Allergies/Adverse Reactions: Allergies Allergy/AdvReac Type Severity Reaction Status Date / Time No Known Allergies Allergy Verified 10/15/18 22:08 Home Medications: Home Meds Aspirin [Adult Aspirin] 81 mg PO DAILY 10/09/18 [History] Cholecalciferol (Vitamin D3) [Vitamin D3] 2,000 units PO DAILY 10/09/18 [History ] Cyanocobalamin (Vitamin B12) [Vitamin B12] 1,000 mcg PO DAILY 10/09/18 [History] Finasteride [Proscar] 5 mg PO DAILY 10/09/18 [History] Ibuprofen [Advil] 600 tab PO BID 10/09/18 [History] Latanoprost/Pf [Latanoprost 0.005% Eye Drop] 1 drop EYEBOTH QPM 10/09/18 [ History] Losartan Potassium 50 mg PO BEDTIME 10/09/18 [History] Losartan Potassium 100 mg PO ACBREAKFAST 10/09/18 [History] Metoprolol Tartrate 50 mg PO BID 10/09/18 [History] Omeprazole Magnesium [Prilosec Otc] 20 mg PO ACBREAKFAST PRN 10/09/18 [History] Pioglitazone HCl 30 mg PO DAILY 10/09/18 [History] Rosuvastatin Calcium 20 mg PO BEDTIME 10/09/18 [History] Tamsulosin [Flomax] 0.4 mg PO DAILY 10/09/18 [History] Vit C/Juan J Ac/Lut/Copper/ZnOx [Preservision Lutein Softgel] 1 cap PO BID [History] Vitamin B Complex [Super B-50 Complex] 1 tab PO DAILY 10/09/18 [History] amLODIPine Besylate [Amlodipine Besylate] 5 mg PO DAILY 10/09/18 [History] metFORMIN HCl [Fortamet] 500 mg PO BIDMEALS 10/09/18 [History] B-Complex with Vitamin C [Super B Complex-Vitamin C] 1 tab PO DAILY 11/07/18 [ History] Carboxymethylcellulose Sodium [Refresh Plus 0.5%] 2 drop EYEBOTH BID 11/07/18 [ History] Cephalexin [Keflex] 500 mg PO QID 11/07/18 [History] Turmeric 400 mg PO BID 11/07/18 [History] Ubidecarenone [Coenzyme Q-10] 200 mg PO DAILY 11/07/18 [History] Past Medical History HEENT History: Reports: Cataract, Impaired Vision, Macular Degeneration, Other ( See Below) Other HEENT History: wears glasses, top and bottom dentures, darci hearing aids Cardiovascular History: Reports: Heart Valve Replacement, High Cholesterol, Hypertension Respiratory History: Reports: None Gastrointestinal History: Reports: GERD Genitourinary History: Reports: BPH, Chronic Renal Insuffiency Other Genitourinary History: CKD, bladder cancer Musculoskeletal History: Reports: Neck Pain, Chronic, Osteoarthritis Other Musculoskeletal History: DDD Neurological History: Reports: None Psychiatric History: Reports: None Endocrine/Metabolic History: Reports: Diabetes, Type II Hematologic History: Reports: None Immunologic History: Reports: None Oncologic (Cancer) History: Reports: Bladder, Other (See Below) Other Oncologic History: hx skin cancer Dermatologic History: Reports: None - Infectious Disease History Infectious Disease History: Reports: Chicken Pox, Measles, Shingles - Past Surgical History Head Surgeries/Procedures: Reports: None HEENT Surgical History: Reports: Cataract Surgery, Tonsillectomy Cardiovascular Surgical History: Reports: Valve Replacement Respiratory Surgical History: Reports: None Male Surgical History: Reports: TURBT-Transurethral Resection of Bladder Tumor Neurological Surgical History: Reports: C-Spine Other Neurological Surgeries/Procedures: hx neck surgery Musculoskeletal Surgical History: Reports: Knee Replacement, Other (See Below) Other Musculoskeletal Surgeries/Procedures:: elbow surgery,, darci knee replacements Dermatological Surgical History: Reports: Skin Biopsy Social & Family History - Family History Family Medical History: Noncontributory - Tobacco Use Smoking Status *Q: Never Smoker Second Hand Smoke Exposure: No - Caffeine Use Caffeine Use: Reports: Coffee Caffeine Use Comment: 2-3 cups of coffee a day - Recreational Drug Use Recreational Drug Use: No - Living Situation & Occupation Living situation: Reports: Occupation: Retired H&P Review of Systems - Review of Systems: Review Of Systems: ROS reveals no pertinent complaints other than HPI. Exam - Exam Exam: See Below - Vital Signs Vital Signs: Last Vital Signs Temp 36.6 C 11/08/18 04:00 Pulse 73 11/08/18 04:00 Resp 18 11/08/18 04:00 BP 124/49 L 11/08/18 07:19 Pulse Ox 94 L 11/08/18 04:00 Weight: 90.628 kg - Exam General: Alert, Oriented Extremities: Other (warmth and redness around the left forearm. Hand is less swollen with no redness. Redness has not spread up the arm ) - Patient Data Lab Results Last 24 hrs: Laboratory Results - last 24 hr 11/07/18 11/07/18 11/08/18 Range/Units 08:32 16:46 04:43 WBC 17.19 H 12.63 H (4.0-11.0) K/uL RBC 3.50 L 3.18 L (4.50-5.90) M/uL Hgb 10.8 L 9.7 L (13.0-17.0) g/dL Hct 32.9 L 29.6 L (38.0-50.0) % MCV 94.0 93.1 (80.0-98.0) fL MCH 30.9 30.5 (27.0-32.0) pg MCHC 32.8 32.8 (31.0-37.0) g/dL RDW Std Deviation 52.7 52.1 (28.0-62.0) fl RDW Coeff of Marshall 15 15 (11.0-15.0) % Plt Count 222 193 (150-400) K/uL MPV 10.90 10.30 (7.40-12.00) fL Neut % (Auto) 88.3 H 78.9 (48.0-80.0) % Lymph % (Auto) 2.0 L 7.2 L (16.0-40.0) % Trimble % (Auto) 9.0 11.0 (0.0-15.0) % Eos % (Auto) 0.6 2.7 (0.0-7.0) % Baso % (Auto) 0.1 0.2 (0.0-1.5) % Neut # (Auto) 15.2 H 10.0 H (1.4-5.7) K/uL Lymph # (Auto) 0.3 L 0.9 (0.6-2.4) K/uL Trimble # (Auto) 1.5 H 1.4 H (0.0-0.8) K/uL Eos # (Auto) 0.1 0.3 (0.0-0.7) K/uL Baso # (Auto) 0.0 0.0 (0.0-0.1) K/uL Nucleated RBC % 0.0 0.0 /100WBC Nucleated RBCs # 0 0 K/uL Sodium (136-148) mmol/L Potassium (3.5-5.1) mmol/L Chloride (98-107) mmol/L Carbon Dioxide (21.0-32.0) mmol/L BUN (7.0-18.0) mg/dL Creatinine (0.8-1.3) mg/dL Est Cr Clr Drug Dosing mL/min Estimated GFR (MDRD) ml/min Glucose (74-106) mg/dL POC Glucose 102 (60-110) mg/dL Calcium (8.5-10.1) mg/dL 11/08/18 11/08/18 Range/Units 04:43 06:49 WBC (4.0-11.0) K/uL RBC (4.50-5.90) M/uL Hgb (13.0-17.0) g/dL Hct (38.0-50.0) % MCV (80.0-98.0) fL MCH (27.0-32.0) pg MCHC (31.0-37.0) g/dL RDW Std Deviation (28.0-62.0) fl RDW Coeff of Marshall (11.0-15.0) % Plt Count (150-400) K/uL MPV (7.40-12.00) fL Neut % (Auto) (48.0-80.0) % Lymph % (Auto) (16.0-40.0) % [place] % (Auto) (0.0-15.0) % Eos % (Auto) (0.0-7.0) % Baso % (Auto) (0.0-1.5) % Neut # (Auto) (1.4-5.7) K/uL Lymph # (Auto) (0.6-2.4) K/uL Trimble # (Auto) (0.0-0.8) K/uL Eos # (Auto) (0.0-0.7) K/uL Baso # (Auto) (0.0-0.1) K/uL Nucleated RBC % /100WBC Nucleated RBCs # K/uL Sodium 140 (136-148) mmol/L Potassium 4.4 (3.5-5.1) mmol/L Chloride 106 (98-107) mmol/L Carbon Dioxide 22.9 (21.0-32.0) mmol/L BUN 37 H (7.0-18.0) mg/dL Creatinine 1.6 H (0.8-1.3) mg/dL Est Cr Clr Drug Dosing 32.06 mL/min Estimated GFR (MDRD) 41.2 ml/min Glucose 67 L (74-106) mg/dL POC Glucose 84 (60-110) mg/dL Calcium 8.8 (8.5-10.1) mg/dL Result Diagrams: 11/08/18 04:43 11/08/18 04:43 Trung Results Last 24 hrs: Microbiology 11/07/18 16:19 Anaerobic Blood Culture - Final Blood - Venous - Lab Draw Consult PN Assessment/Plan Procedures: Procedures ALANINE AMINO (ALT) (SGPT) (12/05/15) ASSAY OF PSA TOTAL (05/22/18) ASSAY OF TROPONIN QUANT (10/15/18) CARDIAC REHAB/MONITOR (05/12/16) CARPAL TUNNEL SURGERY (10/11/18) CHEST X-RAY 2VW FRONTAL&LATL (09/14/16) CMPLX RPR S/A/L 2.6-7.5 CM (10/15/18) COMPLETE CBC AUTOMATED (10/15/18) COMPLETE CBC W/AUTO DIFF WBC (10/15/18) COMPREHEN METABOLIC PANEL (10/15/18) CT HEAD/BRAIN W/O DYE (10/15/18) CT NECK SPINE W/O DYE (10/15/18) CT UPPER EXTREMITY W/O DYE (10/15/18) CYSTOSCOPY (05/19/17) DESTRUCT PREMALG LESION (02/25/14) ELECTROCARDIOGRAM TRACING (10/15/18) EMERGENCY DEPT VISIT (10/15/18) EMERGENCY DEPT VISIT (03/21/14) EXC TR-EXT MAL+IGNACIO 3.1-4 CM (02/25/14) EXTRACRANIAL BILAT STUDY (06/04/15) GLUCOSE BLOOD TEST (10/15/18) GLYCOSYLATED HEMOGLOBIN TEST (10/15/18) HOT OR COLD PACKS THERAPY (01/24/17) INJ TENDON SHEATH/LIGAMENT (03/25/14) INJECT TRIGGER POINTS 3/> (12/18/15) INSERT TEMP BLADDER CATH (03/28/14) LIPID PANEL (06/02/18) MANUAL THERAPY 1/> REGIONS (07/29/16) MASSAGE THERAPY (01/24/17) METABOLIC PANEL TOTAL CA (10/15/18) MRI CHEST SPINE W/O DYE (12/26/15) MRI NECK SPINE W/O DYE (12/26/15) MUSC TEST DONE W/N TEST COMP (07/30/16) NRV CNDJ TEST 9-10 STUDIES (07/30/16) OFFICE/OUTPATIENT VISIT EST (03/21/17) OFFICE/OUTPATIENT VISIT EST (05/14/14) OFFICE/OUTPATIENT VISIT EST (03/28/14) OFFICE/OUTPATIENT VISIT EST (03/25/14) PPSV23 VACC 2 YRS+ SUBQ/IM (12/05/15) PROTHROMBIN TIME (10/15/18) PT EVAL LOW COMPLEX 20 MIN (12/28/16) PT EVALUATION (05/31/16) ROUTINE VENIPUNCTURE (10/15/18) THER/PROPH/DIAG INJ SC/IM (03/21/14) THER/PROPH/DIAG IV INF ADDON (10/15/18) THER/PROPH/DIAG IV INF INIT (10/15/18) THERAPEUTIC EXERCISES (01/24/17) TTE W/DOPPLER COMPLETE (04/25/17) TX/PRO/DX INJ SAME DRUG WEBSITE ADMIN (10/15/18) ULTRASOUND THERAPY (01/24/17) UR ALBUMIN SEMIQUANTITATIVE (05/01/18) URINALYSIS AUTO W/O SCOPE (10/15/18) URINALYSIS AUTO W/SCOPE (05/22/18) URINALYSIS NONAUTO W/SCOPE (05/14/14) US EXAM ABDO BACK WALL PAZ (09/09/14) US URINE CAPACITY MEASURE (04/09/14) VIT D 1 25-DIHYDROXY (09/14/16) X-RAY EXAM CHEST 1 VIEW (10/15/18) X-RAY EXAM NECK SPINE 2-3 VW (12/05/15) X-RAY EXAM OF ELBOW (10/15/18) X-RAY EXAM OF SPINE 1 VIEW (11/02/16) (1) Cellulitis of left arm SNOMED Code(s): 470774162 Code(s): L03.114 - CELLULITIS OF LEFT UPPER LIMB Current Visit: Yes Problem List Initiated/Reviewed/Updated: Yes Plan: Continue IV antibiotics until WBC within normal limits. Awaiting blood culture and wound swab results to direct antibiotic cares.
[2018-11-08] MEDS: Bacitracin Oint 1 GM U/D Packet TOP SCH (09:07)
[2018-11-08] MEDS: LATANOPROST OPTHALMIC EYEBOTH SCH (18:51)
[2018-11-08] MEDS: Rosuvastatin 10 MG Tab PO SCH (20:57)
[2018-11-09] MEDS: Heparin Sodium 5,000 Units/ML Vial SUBCUT SCH (05:18)
[2018-11-09] MEDS: Piperacillin/Tazobactam 2.25 GM in Sodium Chloride 0.9% 50 ML IV SCH (05:18)
[2018-11-09] MEDS: Acetaminophen 325 MG Tab PO PRN (05:25)
[2018-11-09] MEDS: Insulin Aspart 100 Units/ML 3 ML Pen SUBCUT SCH (06:39)
[2018-11-09] MEDS: Losartan 50 MG Tab PO SCH (06:58)
--- NOTE | 2018-11-09 08:36 | PCM.DCSUM1 ---
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 Figueredo noted erythema and warmth, started him on Keflex. This morning they noted redness worsening and was seen by PCP today who contacted Dr Figueredo. She recommended admission for failed outpatient management of cellulitis to L forearm. Dio reports he has been feeling well, but over the weekend started having increased pain to ventral L forearm along with redness, swelling and warmth. This redness is covering entire forearm extending to hand and spreading proximally to axilla. He denies fevers or chills, no chest pain or SOB. He elevated his arm yesterday to help with swelling, which helped some. He reports his BS continue to be low, 40-60s. He was told to now stop Glimepiride completely. BUN 46 Cr 1.8, slightly elevated from baseline, will monitor. Leukocytosis noted, 17,000. Will obtain BC and monitor. Wound culture obtained of wound to L forearm. He will be admitted for cellulitis of L arm. Diagnosis: Stroke: No - Discharge Data Discharge Date: 11/09/18 Discharge Disposition: Home, Self-Care 01 Condition: Good - Discharge Diagnosis/Problem(s) (1) Cellulitis of left arm SNOMED Code(s): 046344861 ICD Code: L03.114 - CELLULITIS OF LEFT UPPER LIMB Status: Acute Current Visit: Yes (2) Hypoglycemia SNOMED Code(s): 144725892 ICD Code: E16.2 - HYPOGLYCEMIA, UNSPECIFIED Status: Chronic Current Visit : No (3) BPH (benign prostatic hyperplasia) SNOMED Code(s): 264353898 ICD Code: N40.0 - BENIGN PROSTATIC HYPERPLASIA WITHOUT LOWER URINRY TRACT SYMP Status: Chronic Current Visit: No (4) Diabetes type 2, controlled SNOMED Code(s): 29709980, 724641851 ICD Code: E11.9 - TYPE 2 DIABETES MELLITUS WITHOUT COMPLICATIONS Status: Chronic Current Visit: No Qualifiers: Diabetes mellitus assisted insulin use: without assisted use Diabetes mellitus complication status: with hypoglycemia Qualified Code(s): E11.649 - Type 2 diabetes mellitus with hypoglycemia without coma (5) HTN (hypertension) SNOMED Code(s): 64626130 ICD Code: I10 - ESSENTIAL (PRIMARY) HYPERTENSION Status: Chronic Current Visit: No Qualifiers: Hypertension type: essential hypertension Qualified Code(s): I10 - Essential (primary) hypertension (6) CKD (chronic kidney disease) SNOMED Code(s): 675463136 ICD Code: N18.9 - CHRONIC KIDNEY DISEASE, UNSPECIFIED Status: Chronic Current Visit: Yes - Patient Summary/Data Consults: Consultations 11/07/18 13:50 Consult to Physician [CONS] Routine - Patient Instructions Diet: Heart Healthy Diet, Diabetic Diet Activity: As Tolerated Showering/Bathing: May Shower Wound/Incision Care: Keep Operative Site/Wound Site Clean and Dry, Change Dressing Daily Notify Provider of: Fever, Increased Pain, Swelling and Redness, Drainage, Nausea and/or Vomiting - Discharge Plan *PRESCRIPTION DRUG MONITORING PROGRAM REVIEWED*: Not Applicable *COPY OF PRESCRIPTION DRUG MONITORING REPORT IN PATIENT LENNY: Not Applicable Prescriptions/Med Rec: Bacitracin [Bacitracin Oint 1 GM] 1 dose TOP BID #1 packet Clindamycin HCl 300 mg PO QID #40 capsule Home Medications: Home Meds Aspirin [Adult Aspirin] 81 mg PO DAILY 10/09/18 [History] Cholecalciferol (Vitamin D3) [Vitamin D3] 2,000 units PO DAILY 10/09/18 [History ] Cyanocobalamin (Vitamin B12) [Vitamin B12] 1,000 mcg PO DAILY 10/09/18 [History] Finasteride [Proscar] 5 mg PO DAILY 10/09/18 [History] Ibuprofen [Advil] 600 tab PO BID 10/09/18 [History] Latanoprost/Pf [Latanoprost 0.005% Eye Drop] 1 drop EYEBOTH QPM 10/09/18 [ History] Losartan Potassium 50 mg PO BEDTIME 10/09/18 [History] Losartan Potassium 100 mg PO ACBREAKFAST 10/09/18 [History] Metoprolol Tartrate 50 mg PO BID 10/09/18 [History] Omeprazole Magnesium [Prilosec Otc] 20 mg PO ACBREAKFAST PRN 10/09/18 [History] Pioglitazone HCl 30 mg PO DAILY 10/09/18 [History] Rosuvastatin Calcium 20 mg PO BEDTIME 10/09/18 [History] Tamsulosin [Flomax] 0.4 mg PO DAILY 10/09/18 [History] Vit C/Juan J Ac/Lut/Copper/ZnOx [Preservision Lutein Softgel] 1 cap PO BID [History] Vitamin B Complex [Super B-50 Complex] 1 tab PO DAILY 10/09/18 [History] amLODIPine Besylate [Amlodipine Besylate] 5 mg PO DAILY 10/09/18 [History] metFORMIN HCl [Fortamet] 500 mg PO BIDMEALS 10/09/18 [History] B-Complex with Vitamin C [Super B Complex-Vitamin C] 1 tab PO DAILY 11/07/18 [ History] Carboxymethylcellulose Sodium [Refresh Plus 0.5%] 2 drop EYEBOTH BID 11/07/18 [ History] Turmeric 400 mg PO BID 11/07/18 [History] Ubidecarenone [Coenzyme Q-10] 200 mg PO DAILY 11/07/18 [History] Bacitracin [Bacitracin Oint 1 GM] 1 dose TOP BID #1 packet 11/09/18 [Rx] Clindamycin HCl 300 mg PO QID #40 capsule 11/09/18 [Rx] Oxygen Therapy Mode: Room Air Patient Handouts: Clindamycin capsules, Cellulitis, Adult, [id number], Bacitracin skin ointment Referrals: Mimi Figueredo MD [Physician] - 11/16/18 8:30 am - Discharge Summary/Plan Comment DC Time >30 min.: No Discharge Summary/Plan Comment: Discharge Diagnoses: Cellulitis L arm DM Type 2 HTN Valvular disease Dio was admitted for L arm cellulitis with leukocytosis. He has small wound left from skin tear repair nearly 3 weeks ago. Wound to L elbow is healing nicely, scant purulent drainage. He was treated empirically with Vancomycin and Zosyn. Dr Figueredo consulted, as he was directly admitted from her. She saw him today, feels he is safe for discharge home. Leukocytosis has resolved, BC negative. Wound culture returned with omalley sensitive staph aureus. She recommends Clindamycin for home treatment. He will continue this for 10 more days and will follow up with Dr Figueredo in 1 week or sooner if concerns should arise. He is to continue all home medications, he previously saw Dr Soriano and was told to discontinue Glimiperide. He is to monitor BS. If fevers, chills or redness to L arm worsens he is to seek medical treatment. - General Info Date of Service: 11/09/18 Admission Dx/Problem (Free Text: Cellulitis L arm Subjective Update: Sitting in recliner, son Gal at bedside. Has no concerns. Dr Figueredo in at same time. No chest pain or SOB. Discharge home today on PO medications. Functional Status: Reports: Pain Controlled, Tolerating Diet, Ambulating, Urinating - Review of Systems General: Reports: No Symptoms. Denies: Fever, Weakness, Fatigue HEENT: Reports: No Symptoms. Denies: Headaches, Sore Throat, Visual Changes Pulmonary: Reports: No Symptoms. Denies: Shortness of Breath Cardiovascular: Reports: No Symptoms. Denies: Chest Pain Gastrointestinal: Reports: No Symptoms. Denies: Abdominal Pain, Vomiting Genitourinary: Reports: No Symptoms. Denies: Dysuria, Frequency, Burning Skin: Reports: Other (slight redness to L arm) Neurological: Reports: No Symptoms Psychiatric: Reports: No Symptoms - Patient Data Vitals - Most Recent: Last Vital Signs Temp 96.9 F 11/09/18 07:00 Pulse 64 11/09/18 07:00 Resp 18 11/09/18 07:00 BP 132/63 11/09/18 07:00 Pulse Ox 96 11/09/18 07:00 Weight - Most Recent: 90.628 kg I&O - Last 24 hours: Intake & Output 11/08/18 11/09/18 11/09/18 22:59 06:59 14:59 Intake Total 1210 950 50 Output Total 750 1150 Balance 460 -200 50 Lab Results - Last 24 hrs: Laboratory Results - last 24 hr 11/08/18 11/08/18 11/09/18 Range/Units 11:58 16:27 05:04 WBC 9.71 (4.0-11.0) K/uL RBC 3.23 L (4.50-5.90) M/uL Hgb 9.9 L (13.0-17.0) g/dL Hct 30.5 L (38.0-50.0) % MCV 94.4 (80.0-98.0) fL MCH 30.7 (27.0-32.0) pg MCHC 32.5 (31.0-37.0) g/dL RDW Std Deviation 52.3 (28.0-62.0) fl RDW Coeff of Marshall 15 (11.0-15.0) % Plt Count 178 (150-400) K/uL MPV 9.60 (7.40-12.00) fL Neut % (Auto) 74.3 (48.0-80.0) % Lymph % (Auto) 9.4 L (16.0-40.0) % Hitchcock % (Auto) 11.2 (0.0-15.0) % Eos % (Auto) 4.8 (0.0-7.0) % Baso % (Auto) 0.3 (0.0-1.5) % Neut # (Auto) 7.2 H (1.4-5.7) K/uL Lymph # (Auto) 0.9 (0.6-2.4) K/uL Hitchcock # (Auto) 1.1 H (0.0-0.8) K/uL Eos # (Auto) 0.5 (0.0-0.7) K/uL Baso # (Auto) 0.0 (0.0-0.1) K/uL Nucleated RBC % 0.0 /100WBC Nucleated RBCs # 0 K/uL Sodium (136-148) mmol/L Potassium (3.5-5.1) mmol/L Chloride (98-107) mmol/L Carbon Dioxide (21.0-32.0) mmol/L BUN (7.0-18.0) mg/dL Creatinine (0.8-1.3) mg/dL Est Cr Clr Drug Dosing mL/min Estimated GFR (MDRD) ml/min Glucose (74-106) mg/dL POC Glucose 139 H 211 H (60-110) mg/dL Calcium (8.5-10.1) mg/dL 11/09/18 11/09/18 Range/Units 05:04 06:33 WBC (4.0-11.0) K/uL RBC (4.50-5.90) M/uL Hgb (13.0-17.0) g/dL Hct (38.0-50.0) % MCV (80.0-98.0) fL MCH (27.0-32.0) pg MCHC (31.0-37.0) g/dL RDW Std Deviation (28.0-62.0) fl RDW Coeff of Marshall (11.0-15.0) % Plt Count (150-400) K/uL MPV (7.40-12.00) fL Neut % (Auto) (48.0-80.0) % Lymph % (Auto) (16.0-40.0) % Hitchcock % (Auto) (0.0-15.0) % Eos % (Auto) (0.0-7.0) % Baso % (Auto) (0.0-1.5) % Neut # (Auto) (1.4-5.7) K/uL Lymph # (Auto) (0.6-2.4) K/uL Hitchcock # (Auto) (0.0-0.8) K/uL Eos # (Auto) (0.0-0.7) K/uL Baso # (Auto) (0.0-0.1) K/uL Nucleated RBC % /100WBC Nucleated RBCs # K/uL Sodium 140 (136-148) mmol/L Potassium 4.7 (3.5-5.1) mmol/L Chloride 106 (98-107) mmol/L Carbon Dioxide 21.9 (21.0-32.0) mmol/L BUN 39 H (7.0-18.0) mg/dL Creatinine 1.7 H (0.8-1.3) mg/dL Est Cr Clr Drug Dosing 30.18 mL/min Estimated GFR (MDRD) 38.4 ml/min Glucose 185 H (74-106) mg/dL POC Glucose 197 H (60-110) mg/dL Calcium 8.8 (8.5-10.1) mg/dL EMILIANA Results - Last 24 hrs: Microbiology 11/07/18 14:25 Wound Culture - Final Arm, Left Staphylococcus Aureus 11/07/18 16:19 Aerobic Blood Culture - Preliminary Blood - Venous - Lab Draw NO GROWTH AFTER 1 DAY Anaerobic Blood Culture - Final 11/07/18 16:09 Aerobic Blood Culture - Preliminary Blood - Venous NO GROWTH AFTER 1 DAY Anaerobic Blood Culture - Preliminary NO GROWTH AFTER 1 DAY Med Orders - Current: Current Medications Acetaminophen (Tylenol) 650 mg PO Q4H PRN PRN Reason: Pain (mild 1-3) Last Admin: 11/09/18 05:25 Dose: 650 mg Amlodipine Besylate (Norvasc) 5 mg PO DAILY [facility] Last Admin: 11/08/18 09:04 Dose: 5 mg Artificial Tears (Refresh Plus 0.5%) 0 each EYEBOTH BID [facility] Last Admin: 11/08/18 20:58 Dose: 2 drop Aspirin (Halfprin) 81 mg PO DAILY [facility] Last Admin: 11/08/18 09:04 Dose: 81 mg Bacitracin (Bacitracin Oint 1 Gm) 1 dose TOP DAILY [facility] Last Admin: 11/08/18 09:07 Dose: 1 dose Finasteride (Proscar) 5 mg PO DAILY [facility] Last Admin: 11/08/18 09:03 Dose: 5 mg Heparin Sodium (Porcine) (Heparin Sodium) 5,000 units SUBCUT Q8H [facility] Last Admin: 11/09/18 05:18 Dose: 5,000 units Vancomycin HCl 1.25 gm/ Sodium (Chloride) 250 mls @ 166.667 mls/hr IV Q24H [facility] Last Admin: 11/08/18 15:15 Dose: 166.667 mls/hr Piperacillin Sod/Tazobactam (Sod 2.25 gm/ Sodium Chloride) 50 mls @ 100 mls/hr IV Q6H [facility] Last Admin: 11/09/18 05:18 Dose: 100 mls/hr Insulin Aspart (Novolog) 0 unit SUBCUT TIDAC [facility]; Protocol Last Admin: 11/09/18 06:39 Dose: Not Given Losartan Potassium (Cozaar) 50 mg PO BEDTIME [facility] Last Admin: 11/08/18 20:56 Dose: 50 mg Losartan Potassium (Cozaar) 100 mg PO ACBREAKFAST [facility] Last Admin: 11/09/18 06:58 Dose: 100 mg Metoprolol Tartrate (Lopressor) 50 mg PO BID [facility] Last Admin: 11/08/18 20:57 Dose: 50 mg Omeprazole (Omeprazole) 20 mg PO ACBREAKFAST PRN PRN Reason: Heartburn Ondansetron HCl (Zofran) 4 mg IVPUSH Q4H PRN PRN Reason: Nausea Latanoprost (Opthalmic Solution) 1 each EYEBOTH QPM [facility] Last Admin: 11/08/18 18:51 Dose: 1 each Rosuvastatin Calcium (Crestor) 20 mg PO BEDTIME [facility] Last Admin: 11/08/18 20:57 Dose: 20 mg Sodium Chloride (Saline Flush) 2.5 ml FLUSH ASDIRECTED PRN PRN Reason: Keep Vein Open Tamsulosin HCl (Flomax) 0.4 mg PO DAILY [facility] Last Admin: 11/08/18 09:03 Dose: 0.4 mg Vancomycin HCl (Pharmacy To Dose - Vancomycin) 1 dose .XX ASDIRECTED [facility] Discontinued Medications Piperacillin Sod/Tazobactam (Sod 2.25 gm/ Sodium Chloride) 50 mls @ 100 mls/hr IV Q6H [facility] Last Admin: 11/08/18 11:42 Dose: 100 mls/hr - Exam General: Reports: Alert, Oriented, Cooperative Lungs: Reports: Clear to Auscultation, Normal Respiratory Effort Cardiovascular: Reports: Regular Rate, Regular Rhythm GI/Abdominal Exam: Normal Bowel Sounds, Soft, Non-Tender Extremities: Normal Inspection, Normal Range of Motion, Non-Tender Wound/Incisions: Reports: Healing Well, Dressing Dry and Intact, Drainage ( scant purulent to dressing on L elbow), Erythema Improving (as well as swelling. ) Neurological: Reports: No New Focal Deficit Psy/Mental Status: Reports: Alert, Normal Affect, Normal Mood <Mathew Perez - Last Filed: 11/09/18 10:23> Discharge Summary - Hospital Course HPI Initial Comments: I have seen and examined the patient independently of Nathalia Nichole CNP. I have discussed the case with her. I have reviewed and agreed with the plan of treatment as outlined for this patient by her. Please see orders. - Patient Summary/Data Consults: Consultations 11/07/18 13:50 Consult to Physician [CONS] Routine - Patient Data Vitals - Most Recent: Last Vital Signs Temp 36.1 C 11/09/18 07:00 Pulse 64 11/09/18 08:37 Resp 18 11/09/18 07:00 BP 132/63 11/09/18 08:39 Pulse Ox 96 11/09/18 07:00 I&O - Last 24 hours: Intake & Output 11/08/18 11/09/18 11/09/18 22:59 06:59 14:59 Intake Total 1210 950 50 Output Total 750 1150 Balance 460 -200 50 Lab Results - Last 24 hrs: Laboratory Results - last 24 hr 11/08/18 11/08/18 11/09/18 Range/Units 11:58 16:27 05:04 WBC 9.71 (4.0-11.0) K/uL RBC 3.23 L (4.50-5.90) M/uL Hgb 9.9 L (13.0-17.0) g/dL Hct 30.5 L (38.0-50.0) % MCV 94.4 (80.0-98.0) fL MCH 30.7 (27.0-32.0) pg MCHC 32.5 (31.0-37.0) g/dL RDW Std Deviation 52.3 (28.0-62.0) fl RDW Coeff of Marshall 15 (11.0-15.0) % Plt Count 178 (150-400) K/uL MPV 9.60 (7.40-12.00) fL Neut % (Auto) 74.3 (48.0-80.0) % Lymph % (Auto) 9.4 L (16.0-40.0) % Hitchcock % (Auto) 11.2 (0.0-15.0) % Eos % (Auto) 4.8 (0.0-7.0) % Baso % (Auto) 0.3 (0.0-1.5) % Neut # (Auto) 7.2 H (1.4-5.7) K/uL Lymph # (Auto) 0.9 (0.6-2.4) K/uL Hitchcock # (Auto) 1.1 H (0.0-0.8) K/uL Eos # (Auto) 0.5 (0.0-0.7) K/uL Baso # (Auto) 0.0 (0.0-0.1) K/uL Nucleated RBC % 0.0 /100WBC Nucleated RBCs # 0 K/uL Sodium (136-148) mmol/L Potassium (3.5-5.1) mmol/L Chloride (98-107) mmol/L Carbon Dioxide (21.0-32.0) mmol/L BUN (7.0-18.0) mg/dL Creatinine (0.8-1.3) mg/dL Est Cr Clr Drug Dosing mL/min Estimated GFR (MDRD) ml/min Glucose (74-106) mg/dL POC Glucose 139 H 211 H (60-110) mg/dL Calcium (8.5-10.1) mg/dL 11/09/18 11/09/18 Range/Units 05:04 06:33 WBC (4.0-11.0) K/uL RBC (4.50-5.90) M/uL Hgb (13.0-17.0) g/dL Hct (38.0-50.0) % MCV (80.0-98.0) fL MCH (27.0-32.0) pg MCHC (31.0-37.0) g/dL RDW Std Deviation (28.0-62.0) fl RDW Coeff of Marshall (11.0-15.0) % Plt Count (150-400) K/uL MPV (7.40-12.00) fL Neut % (Auto) (48.0-80.0) % Lymph % (Auto) (16.0-40.0) % Hitchcock % (Auto) (0.0-15.0) % Eos % (Auto) (0.0-7.0) % Baso % (Auto) (0.0-1.5) % Neut # (Auto) (1.4-5.7) K/uL Lymph # (Auto) (0.6-2.4) K/uL Hitchcock # (Auto) (0.0-0.8) K/uL Eos # (Auto) (0.0-0.7) K/uL Baso # (Auto) (0.0-0.1) K/uL Nucleated RBC % /100WBC Nucleated RBCs # K/uL Sodium 140 (136-148) mmol/L Potassium 4.7 (3.5-5.1) mmol/L Chloride 106 (98-107) mmol/L Carbon Dioxide 21.9 (21.0-32.0) mmol/L BUN 39 H (7.0-18.0) mg/dL Creatinine 1.7 H (0.8-1.3) mg/dL Est Cr Clr Drug Dosing 30.18 mL/min Estimated GFR (MDRD) 38.4 ml/min Glucose 185 H (74-106) mg/dL POC Glucose 197 H (60-110) mg/dL Calcium 8.8 (8.5-10.1) mg/dL EMILIANA Results - Last 24 hrs: Microbiology 11/07/18 14:25 Wound Culture - Final Arm, Left Staphylococcus Aureus 11/07/18 16:19 Aerobic Blood Culture - Preliminary Blood - Venous - Lab Draw NO GROWTH AFTER 1 DAY Anaerobic Blood Culture - Final 11/07/18 16:09 Aerobic Blood Culture - Preliminary Blood - Venous NO GROWTH AFTER 1 DAY Anaerobic Blood Culture - Preliminary NO GROWTH AFTER 1 DAY Med Orders - Current: Current Medications Acetaminophen (Tylenol) 650 mg PO Q4H PRN PRN Reason: Pain (mild 1-3) Last Admin: 11/09/18 05:25 Dose: 650 mg Amlodipine Besylate (Norvasc) 5 mg PO DAILY [facility] Last Admin: 11/09/18 08:39 Dose: 5 mg Artificial Tears (Refresh Plus 0.5%) 0 each EYEBOTH BID [facility] Last Admin: 11/09/18 08:40 Dose: 2 drop Aspirin (Halfprin) 81 mg PO DAILY [facility] Last Admin: 11/09/18 08:37 Dose: 81 mg Bacitracin (Bacitracin Oint 1 Gm) 1 dose TOP DAILY [facility] Last Admin: 11/09/18 08:41 Dose: 1 dose Finasteride (Proscar) 5 mg PO DAILY [facility] Last Admin: 11/09/18 08:37 Dose: 5 mg Heparin Sodium (Porcine) (Heparin Sodium) 5,000 units SUBCUT Q8H [facility] Last Admin: 11/09/18 05:18 Dose: 5,000 units Vancomycin HCl 1.25 gm/ Sodium (Chloride) 250 mls @ 166.667 mls/hr IV Q24H [facility] Last Admin: 11/08/18 15:15 Dose: 166.667 mls/hr Piperacillin Sod/Tazobactam (Sod 2.25 gm/ Sodium Chloride) 50 mls @ 100 mls/hr IV Q6H [facility] Last Admin: 11/09/18 05:18 Dose: 100 mls/hr Insulin Aspart (Novolog) 0 unit SUBCUT TIDAC [facility]; Protocol Last Admin: 11/09/18 06:39 Dose: Not Given Losartan Potassium (Cozaar) 50 mg PO BEDTIME [facility] Last Admin: 11/08/18 20:56 Dose: 50 mg Losartan Potassium (Cozaar) 100 mg PO ACBREAKFAST [facility] Last Admin: 11/09/18 06:58 Dose: 100 mg Metoprolol Tartrate (Lopressor) 50 mg PO BID [facility] Last Admin: 11/09/18 08:37 Dose: 50 mg Omeprazole (Omeprazole) 20 mg PO ACBREAKFAST PRN PRN Reason: Heartburn Ondansetron HCl (Zofran) 4 mg IVPUSH Q4H PRN PRN Reason: Nausea Latanoprost (Opthalmic Solution) 1 each EYEBOTH QPM [facility] Last Admin: 11/08/18 18:51 Dose: 1 each Rosuvastatin Calcium (Crestor) 20 mg PO BEDTIME [facility] Last Admin: 11/08/18 20:57 Dose: 20 mg Sodium Chloride (Saline Flush) 2.5 ml FLUSH ASDIRECTED PRN PRN Reason: Keep Vein Open Tamsulosin HCl (Flomax) 0.4 mg PO DAILY [facility] Last Admin: 11/09/18 08:38 Dose: 0.4 mg Vancomycin HCl (Pharmacy To Dose - Vancomycin) 1 dose .XX ASDIRECTED [facility] Discontinued Medications Piperacillin Sod/Tazobactam (Sod 2.25 gm/ Sodium Chloride) 50 mls @ 100 mls/hr IV Q6H [facility] Last Admin: 11/08/18 11:42 Dose: 100 mls/hr
[2018-11-09] MEDS: Finasteride 5 MG Tab PO SCH (08:37)
[2018-11-09] MEDS: Metoprolol Tartrate 50 MG Tab PO SCH (08:37)
[2018-11-09] MEDS: Aspirin 81 MG Tab.EC PO SCH (08:37)
[2018-11-09] MEDS: Tamsulosin 0.4 MG Cap.ER PO SCH (08:38)
[2018-11-09] MEDS: amLODIPine 5 MG Tab PO SCH (08:39)
[2018-11-09] MEDS: Carboxymethylcellulose Sodium 0.5% Ophth Soln 0.4 ML UD Box of 30 EYEBOTH SCH (08:40)
[2018-11-09] MEDS: Bacitracin Oint 1 GM U/D Packet TOP SCH (08:41)
--- NOTE | 2018-11-09 10:05 | PCM.CONSN ---
- General Info Date of Service: 11/09/18 Subjective Update: Patient is a 88 year old male admitted for left arm cellulitis. Erythema, swelling, and white count improving. Patient has no complaints. - Review of Systems General: Reports: No Symptoms HEENT: Reports: No Symptoms Pulmonary: Reports: No Symptoms Cardiovascular: Reports: No Symptoms Gastrointestinal: Reports: No Symptoms Genitourinary: Reports: No Symptoms Musculoskeletal: Reports: No Symptoms Skin: Reports: Rash Neurological: Reports: No Symptoms Psychiatric: Reports: No Symptoms - Patient Data Vitals - Most Recent: Last Vital Signs Temp 96.9 F 11/09/18 07:00 Pulse 64 11/09/18 08:37 Resp 18 11/09/18 07:00 BP 132/63 11/09/18 08:39 Pulse Ox 96 11/09/18 07:00 Weight - Most Recent: 90.628 kg I&O - Last 24 Hours: Intake & Output 11/08/18 11/09/18 11/09/18 22:59 06:59 14:59 Intake Total 1210 950 50 Output Total 750 1150 Balance 460 -200 50 Lab Results Last 24 Hours: Laboratory Results - last 24 hr 11/08/18 11/08/18 11/09/18 Range/Units 11:58 16:27 05:04 WBC 9.71 (4.0-11.0) K/uL RBC 3.23 L (4.50-5.90) M/uL Hgb 9.9 L (13.0-17.0) g/dL Hct 30.5 L (38.0-50.0) % MCV 94.4 (80.0-98.0) fL MCH 30.7 (27.0-32.0) pg MCHC 32.5 (31.0-37.0) g/dL RDW Std Deviation 52.3 (28.0-62.0) fl RDW Coeff of Marshall 15 (11.0-15.0) % Plt Count 178 (150-400) K/uL MPV 9.60 (7.40-12.00) fL Neut % (Auto) 74.3 (48.0-80.0) % Lymph % (Auto) 9.4 L (16.0-40.0) % [place] % (Auto) 11.2 (0.0-15.0) % Eos % (Auto) 4.8 (0.0-7.0) % Baso % (Auto) 0.3 (0.0-1.5) % Neut # (Auto) 7.2 H (1.4-5.7) K/uL Lymph # (Auto) 0.9 (0.6-2.4) K/uL [place] # (Auto) 1.1 H (0.0-0.8) K/uL Eos # (Auto) 0.5 (0.0-0.7) K/uL Baso # (Auto) 0.0 (0.0-0.1) K/uL Nucleated RBC % 0.0 /100WBC Nucleated RBCs # 0 K/uL Sodium (136-148) mmol/L Potassium (3.5-5.1) mmol/L Chloride (98-107) mmol/L Carbon Dioxide (21.0-32.0) mmol/L BUN (7.0-18.0) mg/dL Creatinine (0.8-1.3) mg/dL Est Cr Clr Drug Dosing mL/min Estimated GFR (MDRD) ml/min Glucose (74-106) mg/dL POC Glucose 139 H 211 H (60-110) mg/dL Calcium (8.5-10.1) mg/dL 11/09/18 11/09/18 Range/Units 05:04 06:33 WBC (4.0-11.0) K/uL RBC (4.50-5.90) M/uL Hgb (13.0-17.0) g/dL Hct (38.0-50.0) % MCV (80.0-98.0) fL MCH (27.0-32.0) pg MCHC (31.0-37.0) g/dL RDW Std Deviation (28.0-62.0) fl RDW Coeff of Marshall (11.0-15.0) % Plt Count (150-400) K/uL MPV (7.40-12.00) fL Neut % (Auto) (48.0-80.0) % Lymph % (Auto) (16.0-40.0) % [place] % (Auto) (0.0-15.0) % Eos % (Auto) (0.0-7.0) % Baso % (Auto) (0.0-1.5) % Neut # (Auto) (1.4-5.7) K/uL Lymph # (Auto) (0.6-2.4) K/uL [place] # (Auto) (0.0-0.8) K/uL Eos # (Auto) (0.0-0.7) K/uL Baso # (Auto) (0.0-0.1) K/uL Nucleated RBC % /100WBC Nucleated RBCs # K/uL Sodium 140 (136-148) mmol/L Potassium 4.7 (3.5-5.1) mmol/L Chloride 106 (98-107) mmol/L Carbon Dioxide 21.9 (21.0-32.0) mmol/L BUN 39 H (7.0-18.0) mg/dL Creatinine 1.7 H (0.8-1.3) mg/dL Est Cr Clr Drug Dosing 30.18 mL/min Estimated GFR (MDRD) 38.4 ml/min Glucose 185 H (74-106) mg/dL POC Glucose 197 H (60-110) mg/dL Calcium 8.8 (8.5-10.1) mg/dL Trung Results Last 24 Hours: Microbiology 11/07/18 14:25 Wound Culture - Final Arm, Left Staphylococcus Aureus 11/07/18 16:19 Aerobic Blood Culture - Preliminary Blood - Venous - Lab Draw NO GROWTH AFTER 1 DAY Anaerobic Blood Culture - Final 11/07/18 16:09 Aerobic Blood Culture - Preliminary Blood - Venous NO GROWTH AFTER 1 DAY Anaerobic Blood Culture - Preliminary NO GROWTH AFTER 1 DAY Med Orders - Current: Current Medications Acetaminophen (Tylenol) 650 mg PO Q4H PRN PRN Reason: Pain (mild 1-3) Last Admin: 11/09/18 05:25 Dose: 650 mg Amlodipine Besylate (Norvasc) 5 mg PO DAILY [facility] Last Admin: 11/09/18 08:39 Dose: 5 mg Artificial Tears (Refresh Plus 0.5%) 0 each EYEBOTH BID [facility] Last Admin: 11/09/18 08:40 Dose: 2 drop Aspirin (Halfprin) 81 mg PO DAILY [facility] Last Admin: 11/09/18 08:37 Dose: 81 mg Bacitracin (Bacitracin Oint 1 Gm) 1 dose TOP DAILY [facility] Last Admin: 11/09/18 08:41 Dose: 1 dose Finasteride (Proscar) 5 mg PO DAILY [facility] Last Admin: 11/09/18 08:37 Dose: 5 mg Heparin Sodium (Porcine) (Heparin Sodium) 5,000 units SUBCUT Q8H [facility] Last Admin: 11/09/18 05:18 Dose: 5,000 units Vancomycin HCl 1.25 gm/ Sodium (Chloride) 250 mls @ 166.667 mls/hr IV Q24H [facility] Last Admin: 11/08/18 15:15 Dose: 166.667 mls/hr Piperacillin Sod/Tazobactam (Sod 2.25 gm/ Sodium Chloride) 50 mls @ 100 mls/hr IV Q6H [facility] Last Admin: 11/09/18 05:18 Dose: 100 mls/hr Insulin Aspart (Novolog) 0 unit SUBCUT TIDAC [facility]; Protocol Last Admin: 11/09/18 06:39 Dose: Not Given Losartan Potassium (Cozaar) 50 mg PO BEDTIME [facility] Last Admin: 11/08/18 20:56 Dose: 50 mg Losartan Potassium (Cozaar) 100 mg PO ACBREAKFAST [facility] Last Admin: 11/09/18 06:58 Dose: 100 mg Metoprolol Tartrate (Lopressor) 50 mg PO BID [facility] Last Admin: 11/09/18 08:37 Dose: 50 mg Omeprazole (Omeprazole) 20 mg PO ACBREAKFAST PRN PRN Reason: Heartburn Ondansetron HCl (Zofran) 4 mg IVPUSH Q4H PRN PRN Reason: Nausea Latanoprost (Opthalmic Solution) 1 each EYEBOTH QPM [facility] Last Admin: 11/08/18 18:51 Dose: 1 each Rosuvastatin Calcium (Crestor) 20 mg PO BEDTIME [facility] Last Admin: 11/08/18 20:57 Dose: 20 mg Sodium Chloride (Saline Flush) 2.5 ml FLUSH ASDIRECTED PRN PRN Reason: Keep Vein Open Tamsulosin HCl (Flomax) 0.4 mg PO DAILY [facility] Last Admin: 11/09/18 08:38 Dose: 0.4 mg Vancomycin HCl (Pharmacy To Dose - Vancomycin) 1 dose .XX ASDIRECTED [facility] Discontinued Medications Piperacillin Sod/Tazobactam (Sod 2.25 gm/ Sodium Chloride) 50 mls @ 100 mls/hr IV Q6H [facility] Last Admin: 11/08/18 11:42 Dose: 100 mls/hr - Exam General: Alert, Oriented, Cooperative Extremities: Other (erythema, swelling of left forearm improving) Consult PN Assessment/Plan Procedures: Procedures ALANINE AMINO (ALT) (SGPT) (12/05/15) ASSAY OF PSA TOTAL (05/22/18) ASSAY OF TROPONIN QUANT (10/15/18) CARDIAC REHAB/MONITOR (05/12/16) CARPAL TUNNEL SURGERY (10/11/18) CHEST X-RAY 2VW FRONTAL&LATL (09/14/16) CMPLX RPR S/A/L 2.6-7.5 CM (10/15/18) COMPLETE CBC AUTOMATED (10/15/18) COMPLETE CBC W/AUTO DIFF WBC (10/15/18) COMPREHEN METABOLIC PANEL (10/15/18) CT HEAD/BRAIN W/O DYE (10/15/18) CT NECK SPINE W/O DYE (10/15/18) CT UPPER EXTREMITY W/O DYE (10/15/18) CYSTOSCOPY (05/19/17) DESTRUCT PREMALG LESION (02/25/14) ELECTROCARDIOGRAM TRACING (10/15/18) EMERGENCY DEPT VISIT (10/15/18) EMERGENCY DEPT VISIT (03/21/14) EXC TR-EXT MAL+IGNACIO 3.1-4 CM (02/25/14) EXTRACRANIAL BILAT STUDY (06/04/15) GLUCOSE BLOOD TEST (10/15/18) GLYCOSYLATED HEMOGLOBIN TEST (10/15/18) HOT OR COLD PACKS THERAPY (01/24/17) INJ TENDON SHEATH/LIGAMENT (03/25/14) INJECT TRIGGER POINTS 3/> (12/18/15) INSERT TEMP BLADDER CATH (03/28/14) LIPID PANEL (06/02/18) MANUAL THERAPY 1/> REGIONS (07/29/16) MASSAGE THERAPY (01/24/17) METABOLIC PANEL TOTAL CA (10/15/18) MRI CHEST SPINE W/O DYE (12/26/15) MRI NECK SPINE W/O DYE (12/26/15) MUSC TEST DONE W/N TEST COMP (07/30/16) NRV CNDJ TEST 9-10 STUDIES (07/30/16) OFFICE/OUTPATIENT VISIT EST (03/21/17) OFFICE/OUTPATIENT VISIT EST (05/14/14) OFFICE/OUTPATIENT VISIT EST (03/28/14) OFFICE/OUTPATIENT VISIT EST (03/25/14) PPSV23 VACC 2 YRS+ SUBQ/IM (12/05/15) PROTHROMBIN TIME (10/15/18) PT EVAL LOW COMPLEX 20 MIN (12/28/16) PT EVALUATION (05/31/16) ROUTINE VENIPUNCTURE (10/15/18) THER/PROPH/DIAG INJ SC/IM (03/21/14) THER/PROPH/DIAG IV INF ADDON (10/15/18) THER/PROPH/DIAG IV INF INIT (10/15/18) THERAPEUTIC EXERCISES (01/24/17) TTE W/DOPPLER COMPLETE (04/25/17) TX/PRO/DX INJ SAME DRUG LEATHER LACER (10/15/18) ULTRASOUND THERAPY (01/24/17) UR ALBUMIN SEMIQUANTITATIVE (05/01/18) URINALYSIS AUTO W/O SCOPE (10/15/18) URINALYSIS AUTO W/SCOPE (05/22/18) URINALYSIS NONAUTO W/SCOPE (05/14/14) US EXAM ABDO BACK WALL PAZ (09/09/14) US URINE CAPACITY MEASURE (04/09/14) VIT D 1 25-DIHYDROXY (09/14/16) X-RAY EXAM CHEST 1 VIEW (10/15/18) X-RAY EXAM NECK SPINE 2-3 VW (12/05/15) X-RAY EXAM OF ELBOW (10/15/18) X-RAY EXAM OF SPINE 1 VIEW (11/02/16) Problem List Initiated/Reviewed/Updated: Yes Plan: 88 year old male with left arm cellulitis- WBC within normal limits, swelling/ erythema improved, blood cultures negative, wound culture growing omalley sensitive Staph aureus. Will leave home oral antibiotics decision up to medical team. Patient will need to follow up with Dr. Figueredo in clinic in 1 week.
== END 2018-11-09 10:50 | disposition home or self-care (01) ==
LOC: MW.MS 13:41
PROVIDERS: ADMIT Internal Medicine; ATTEND Internal Medicine
DX: L03.114 Cellulitis of left upper limb (principal); E11.649 Type 2 diabetes mellitus with hypoglycemia without coma; I12.9 Hypertensive chronic kidney disease with stage 1 through stage 4 chronic kidney disease, or unspecified chronic kidney disease; E11.22 Type 2 diabetes mellitus with diabetic chronic kidney disease; N18.9 Chronic kidney disease, unspecified; E78.00 Pure hypercholesterolemia, unspecified; N40.0 Benign prostatic hyperplasia without lower urinary tract symptoms; Z95.3 Presence of xenogenic heart valve; Z79.82 Long term (current) use of aspirin; Z79.84 Long term (current) use of oral hypoglycemic drugs; Z79.899 Other long term (current) drug therapy
CPT/HCPCS: 36415; 80048; 82962; 85025; 87040; 87070; 87077; 87186; 96365; 96367; 96372; 96376; A9270-GY; G0378; G0379; J1644; J2543; J3370; J7050